=== PATIENT | female | born 1960 | race Caucasian/White ===

== ENCOUNTER 2018-08-28 09:42 | Emergency (ER) | payer MEDICARE ==
[~2018-08-28] VITALS: Ht 160 cm; Wt 59.0 kg
[~2018-08-28 09:42] MED LIST: ESTR1TAB24 PO; HORMONE REPLACEMENT; HYDR-3820 PO; LEVO88TA26 PO; PANT20TA2 PO
--- OUTSIDE RECORDS SUMMARY | 2018-08-28 09:47 | XMS REPORT | Clinical Summary ---
Author Author [facility] Organization [facility] Address Unknown Phone Unavailable Care Team Providers Care Eye Surgeon Name Role Phone Lilo Huggins MD Unavailable Unverified, Unverified Md PCP Unavailable Source Comments Some departments are not documenting in the electronic medical record. If you do not see the information that you expected, contact Release of Information in the Health Information Management department at [phone] for further assistance in locating additional records.[facility] Allergies No Known Allergies Medications End Date Status Medication Sig Dispensed Refills Start Date Active levothyroxine (SYNTHROID) Take 88 mcg 0 88 mcg tablet by mouth daily. Active CETIRIZINE HCL (ZYRTEC Take 1 Tab by 0 PO) mouth as Needed. Active RANITIDINE HCL PO Take by 0 mouth twice daily. Active DOCOSAHEXANOIC ACID/EPA Take by 0 (FISH OIL PO) mouth daily. Active estradiol (ESTRACE) 0.01 Apply to 1 Container 11 01/30/201 % (0.1 mg/g) vaginal vaginal area 3 cream daily for seven days, then twice weekly after Active Problems Problem Noted Date Mixed stress and urge urinary incontinence 01/30/2013 Overview: S/p lap INDRA/BSO and sling 2008 (Dr. Elizalde) and bone anchored xenograft sling 2010 (Dr. Shannon) with severe FRANKY. Cysto (03/06/13): unremarkable UDS (03/06/13): nl capacity and emptying; +LPP; dysfunctional voiding L ast Assessment & Plan: - timed and double voiding - estrace cream - PFRT (if incontinence, pain does not improve once dysfunctional voiding addressed; will consider removal of sling. UDS are not c/w obstruction, yet symptoms are suspicious) - rtc in 3 months Social History Date Tobacco Use Types Packs/Day Years Used Quit: 09/13/2002 Former Smoker Cigarettes 1 20 Smokeless Tobacco: Never Used Alcohol Use Drinks/Week oz/Week Comments No Sex Assigned at Date Recorded Not on file Industry Job Start Date Occupation Not on file Not on file Not on file Travel End Travel History Travel Start No recent travel history available. Last Filed Vital Signs Time Taken Vital Sign Reading 03/06/2013 1:20 PM CDT Blood Pressure 114/75 03/06/2013 1:20 PM CDT Pulse 83 - Temperature - - Respiratory Rate - - Oxygen Saturation - - Inhaled Oxygen - Concentration 03/06/2013 1:20 PM CDT Weight 70.8 kg (156 lb) 03/06/2013 1:20 PM CDT Height 162.6 cm (5' 4") 03/06/2013 1:20 PM CDT Body Mass Index 26.78 Plan of Treatment Health Maintenance Due Date Last Done Comments HEPATITIS C SCREENING 1960 PHYSICAL (COMPREHENSIVE) 1967 EXAM HIV SCREENING 1975 DTAP/TDAP VACCINES (1 - 1978 Tdap) CERVICAL CANCER SCREENING 1990 BREAST CANCER SCREENING 2000 COLORECTAL CANCER 2010 SCREENING SHINGLES RECOMBINANT 2010 VACCINE (1 of 2) INFLUENZA VACCINE 04/13/2018 Results Not on filefrom Last 3 Months
--- OUTSIDE RECORDS SUMMARY | 2018-08-28 09:48 | XMS REPORT ---
Author Author MARIA INES LEAL Organization [facility] Address [address] [place] [address] Care Team Providers Care Bakery Helper Name Role Phone MARIA INES LEAL Unavailable PROBLEMS Type Condition ICD9-CM Code EYD34-ZS Code Onset Dates Condition Status SNOMED Code Problem Major depressive disorder, single episode, moderate F32.1 Active 527058679 Problem Arthritis M19.90 Active 7949899 Problem Acquired hypothyroidism E03.9 Active 027177149 Problem Other chronic pain G89.29 Active 01246481 Problem Lumbago with sciatica, right side M54.41 Active 775974814133631 Problem Depression F32.9 Active 94653131 Problem Other chronic pain G89.29 Active 72950231 Problem Lumbago with sciatica, left side M54.42 Active 732071484 Problem Primary insomnia F51.01 Active 9809180 ALLERGIES No Information ENCOUNTERS Encounter Location Date Diagnosis [facility] [address] [address] Apr, [facility] [address] [address] Mar, Insomnia, unspecified type G47.00 [facility] [address] [address] Feb, Insomnia, unspecified type G47.00 [place] [address] [address] January, Acute non-recurrent maxillary sinusitis J01.00 and Depression F32.9 [facility] [address] [address] January, Seasonal allergic rhinitis, unspecified trigger J30.2 [facility] [address] [address] January, Insomnia, unspecified type G47.00 [place] [address] [place] [id number] [place] [address]1645- 9472 Dec, Insomnia, unspecified type G47.00 [place] [id number] [place] [id number] [place] [address]03- 1103 Dec, Other chronic pain G89.29 [place] [address] [address]- [address] Nov, Other chronic pain G89.29 ; Arthritis M19.90 ; Acquired hypothyroidism E03.9 ; Lumbago with sciatica, left side M54.42 ; Lumbago with sciatica, right side M54.41 and Major depressive disorder, single episode, moderate F32.1 [place] [address] [place] [id number] [place] [address] 60770- 3014 Nov, Insomnia, unspecified type G47.00 [facility] [address] [id number] [place] [address] Nov, Acute cystitis with hematuria N30.01 [place] [address] [place] [id number] [place] [address] 04968- 9548 Oct, Insomnia, unspecified type G47.00 [place] [address] [place] [id number] [place] [address] 59837- 7467 Sep, Insomnia, unspecified type G47.00 [place] [address] [place] [id number] [place] [address] 83704- 4684 Aug, Insomnia, unspecified type G47.00 [place] [address] [place] [id number] [place] [address] 36197- 9872 Jul, Insomnia, unspecified type G47.00 [place] [address] [place] [id number] [place] [address] 95904- 5840 Jul, [facility] [address] [id number] [place] [address]68 [address]2063 Jul, Dysuria R30.0 and Acute cystitis with hematuria N30.01 [place] [address] [address]- [address] Jun, Insomnia, unspecified type G47.00 [place] [address] [place] [id number] [place] [address] 15473- 0263 Jun, Encounter for immunization Z23 [place] [address] [address]- [address] May, [place] [address] [address] May, Insomnia, unspecified type G47.00 ; Lumbago with sciatica, left side M54.42 ; Lumbago with sciatica, right side M54.41 and Other chronic pain G89.29 [facility] [address] [address] May, Acute non-recurrent maxillary sinusitis J01.00 [place] [address] [address]- [address] Apr, Other chronic pain G89.29 [place] [address] [address]- [address]681 Apr, Primary insomnia F51.01 and Pain in right leg M79.604 [place] [address] [place] [id number] [place] [address] 02870- 2570 Mar, Other chronic pain G89.29 [place] [address] [place] [id number] [place] [address] 32428- 6301 Feb, Other chronic pain G89.29 [facility] [address] [address] Feb, Depression F32.9 and Insomnia, unspecified type G47.00 [place] [address] [address]- [address] Feb, Other chronic pain G89.29 [facility] [address] [address] January, Arthritis M19.90 [facility] [address] [address] January, [facility] [address] [address] January, Other chronic pain G89.29 [facility] [address] [facility] [id number] [address] Dec, Other chronic pain G89.29 [facility] [id number] [place] [address] 2546 Nov, Depression F32.9 [facility] [address] [address] 2546 Nov, Other chronic pain G89.29 [facility] [address] [address] Oct, Arthritis M19.90 [facility] [id number] [place] [address] 33412- 0456 Aug, [facility] [address] [address] Aug, [facility] [address] [address] Jul, Acquired hypothyroidism E03.9 [facility] [address] [address] 254 Jul, [facility] [address] [address] 2548 Jul, [facility] [address] [address] Jul, [facility] [address] [address] Jun, [facility] [id number] [place] [address] 54518- 2872 Jun, Encounter for immunization Z23 [facility] [address] [place] [id number] [place] [address]141- 49[address] 30 May, 2016 [facility] [address] [place] [id number] [place] [address] 61375- 1269 May, [facility] [address] [place] [id number] [place] [address]81 [address] May, Acute non-recurrent maxillary sinusitis J01.00 and Bilateral acute serous otitis media, recurrence not specified H65.03 [place] [address] [place] [id number] [place] [address] 49898- 4129 May, Rheumatoid arthritis 714.0 and Osteoarthritis, unspecified osteoarthritis type, unspecified site M19.90 [place] [address] [place] [id number] [place] [address] 83041- 9797 May, [facility] [address] [place] [id number] [place] [address] 94433- 9664 Apr, [place] [address] [place] [id number] [place] [address] 86217- 8160 Apr, OAB (overactive bladder) N32.81 ; Encounter for well woman exam with routine gynecological exam Z01.419 and Encounter for screening mammogram for breast cancer Z12.31 [place] [address] [place] [id number] [place] [address] 56614- 4430 Apr, [place] [address] [place] [id number] [place] [address] 41791- 7764 Mar, [place] [address] [place] [id number] [place] [address] 43875- 0614 Feb, Acquired hypothyroidism E03.9 [place] [address] [place] [id number] [place] [address] 54868- 8904 Feb, [place] [address] [place] [id number] [place] [address] 96496- 3764 January, [facility] [id number] [place] [address] 65468- 0635 January, [facility] [address] [place] [id number] [place] [address] 32641- 5155 Dec, [facility] [address] [place] [id number] [place] [address] 74518- 1705 Nov, [facility] [address] [place] [id number] [place] [address] 44543- 8784 Oct, [facility] [address] [place] [id number] [place] [address] 49495- 0473 Sep, Acquired hypothyroidism E03.9 [facility] [address] [place] [id number] [place] [address] 00380- 0498 Aug, Acquired hypothyroidism E03.9 ; Hiatal hernia K44.9 and Lumbar neuritis M54.16 [facility] [address] [place] [id number] [place] [address] 88577- 3693 Jul, [facility] [address] [place] [id number] [place] [address] 21462- 4776 Jul, Major depressive disorder, single episode, moderate F32.1 [place] [address] [place] [id number] [place] [address] 29138- 9251 Jul, Acquired hypothyroidism E03.9 [facility] [address] [place] [id number] [place] [address] 04333- 0194 Jun, Major depressive disorder, single episode, moderate F32.1 [facility] [address] [place] [id number] [place] [address] 07578- 7958 Jun, [facility] [address] [place] [id number] [place] [address] 95930- 0224 Jun, Depression F32.9 ; Irritable bowel syndrome with diarrhea K58.0 and Other chronic pain G89.29 [facility] [address] [place] [id number] [place] [address] 02080- 5785 Jun, Family history of pinworm infection Z83.1 [facility] [address] [place] [id number] [place] [address] 27158- 3784 Jun, Acquired hypothyroidism E03.9 [facility] [address] [place] [id number] [place] [address] 24370- 0120 Jun, Unspecified hypothyroidism 244.9 [facility] [address] 48[address]- 0836 Jun, [facility] [address] [place] [id number] [place] [address] 93349- 9551 May, Unspecified hypothyroidism 244.9 [facility] [address] 047[address]- 6017 May, [facility] [address] [place] [id number] [place] [address] 23804- 2202 Apr, [facility] [address] 04[address]- 2628 Mar, [facility] [address] [place] [id number] [place] [address] 71994- 1886 Feb, Paronychia 681.9 and Hypothyroidism 244.9 [facility] [address] [place] [id number] [place] [address] 98920- 3656 January, [facility] [address] [place] [id number] [place] [address] 42743- 8944 14 Dec, 2014 [facility] [address] [place] [id number] [place] [address] 33562- 5597 Dec, [facility] [address] [place] [id number] [place] [address] 19566- 7780 Nov, [facility] [address] [place] [id number] [place] [address] 38717- 8034 Nov, [facility] [address] [place] [id number] [place] [address] 75799- 1539 Nov, [facility] [place] [facility] [address] [id number] [place] [address]- 2997 Nov, [facility] [place] [facility] [address] [id number] [place] [address]- 3394 Oct, [facility] [place] [facility] [address] [id number] [place] [address]- 3647 Oct, [facility] [place] [facility] [address] [id number] [place] [address]- 2078 Oct, [facility] [place] [facility] [address] [id number] [place] [address]- 4431 Oct, [facility] [place] [facility] [address] [id number] [place] [address]- 4825 Sep, [facility] [place] [facility] [address] [id number] [place] [address]- 1245 Sep, [facility] [place] [facility] [address] [id number] [place] [address]- 0169 Sep, [facility] [place] [facility] [address] [id number] [place] [address]- 7695 Sep, [facility] [place] [facility] [address] [facility] [id number] [place] [address]- 0891 Aug, [facility] [place] [facility] [address] [id number] [place] [address]- 3028 Aug, [facility] [place] [facility] [address] [id number], [place] [address]- 9875 Jul, [facility] [place] [facility] [address] [id number] [place] [address]- 0273 Jul, [facility] [place] [facility] [address] [id number] [place] [address]- 1129 Jun, [facility] [place] [facility] [address] [id number] [place] [address]- 1744 Jun, [facility] [place] [facility] [address] [id number], [place] [address]- 1389 25 May, 2013 [facility] [address] [id number], [place] [address] 2546 25 May, 2013 [facility] [address] [id number], [place] [address] 2546 24 May, 2014 [facility] [address] [id number], [place] [address]- 2266 24 May, 2014 [facility] [address] [id number], [place] [address]- 8535 16 May, 2014 [facility] [address] [id number] [place] [address]- 3411 16 May, 2014 [facility] [address] [id number], [place] [address]- 1767 15 May, 2014 [facility] [address] [facility] [id number], [place] [address]- 2680 15 May, 2014 [facility] [address] [facility] [id number], [place] [address]- 5967 May, [facility] [address] [id number], [place] [address]- 7485 May, [facility] [address] [facility] [id number], [place] [address]- 6615 Apr, [facility] [address] [id number], [place] [address]- 8214 Apr, [facility] [address] [id number], [place] [address]- 4143 Apr, [facility] [address] [id number], [place] [address]- 5916 Apr, [facility] [address] [facility] [id number], [place] [address]- 7661 Apr, [facility] [address] [facility] [id number], [place] [address]- 5672 Apr, IMMUNIZATIONS No Known Immunizations SOCIAL HISTORY Never Assessed REASON FOR VISIT med questions PLAN OF CARE VITAL SIGNS MEDICATIONS Medication Instructions Dosage Frequency Start Date End Date Duration Status Cymbalta 30 MG Orally Once a day x 7 days then increase to 60. 1 capsule Dec, Active Cymbalta 60 mg Orally Once a day 1 capsule 24h Dec, 30 day(s) Active RESULTS No Results PROCEDURES No Known procedures INSTRUCTIONS MEDICATIONS ADMINISTERED No Known Medications MEDICAL (GENERAL) HISTORY Type Description Date Medical History rheumatoid arthritis Medical History Hypothyroidism Medical History osteoarthritis Surgical History EGD Surgical History Colonoscopy (fiberoptic) 2008 Surgical History Thyroidectomy-Dr. Lin d/t benign mass 2010 Surgical History Bladder Sling- Dr. Elizalde, has had repair and continues to have problems 2008 Surgical History Hysterectomy-total for endometriosis and prolapse 2008 Surgical History Cholecystectomy 02/2016 Hospitalization History for surgeries only
--- OUTSIDE RECORDS SUMMARY | 2018-08-28 09:48 | XMS REPORT ---
Author Author MARIA INES LEAL Organization [facility] Address [address] [place] [address] Care Team Providers Care Biological Technician Name Role Phone MARIA INES LEAL Unavailable PROBLEMS Type Condition ICD9-CM Code [id number] Code Onset Dates Condition Status SNOMED Code Problem Major depressive disorder, single episode, moderate F32.1 Active 158523822 Problem Arthritis M19.90 Active 0926755 Problem Acquired hypothyroidism E03.9 Active 434506315 Problem Other chronic pain G89.29 Active 95159100 Problem Lumbago with sciatica, right side M54.41 Active 962404196759260 Problem Depression F32.9 Active 94722901 Problem Other chronic pain G89.29 Active 34052942 Problem Lumbago with sciatica, left side M54.42 Active 533170617 Problem Primary insomnia F51.01 Active 5405471 ALLERGIES No Known Allergies ENCOUNTERS Encounter Location Date Diagnosis [facility] [address] [address] Apr, [facility] [address] [address] Mar, Insomnia, unspecified type G47.00 [facility] [address] [address] Feb, Insomnia, unspecified type G47.00 [facility] [address] [address] January, Acute non-recurrent maxillary sinusitis J01.00 and Depression F32.9 [facility] [id number] [place] [address]676 [address]21 January, Seasonal allergic rhinitis, unspecified trigger J30.2 [facility] [address] [address] January, Insomnia, unspecified type G47.00 [facility] [id number] [place] [address] 23570- 3583 Dec, Insomnia, unspecified type G47.00 [facility] [place] [id number] [place] [address] 65671- 5057 Dec, Other chronic pain G89.29 [place] [address] [address]- [address] Nov, Other chronic pain G89.29 ; Arthritis M19.90 ; Acquired hypothyroidism E03.9 ; Lumbago with sciatica, left side M54.42 ; Lumbago with sciatica, right side M54.41 and Major depressive disorder, single episode, moderate F32.1 [facility] [id number] [place] [address] 21052- 8389 Nov, Insomnia, unspecified type G47.00 [facility] [id number] [place] [address]70 -9406 Nov, Acute cystitis with hematuria N30.01 [place] [place] [id number] [place] [address] 42989- 2219 Oct, Insomnia, unspecified type G47.00 [facility] [id number] [place] [address] 86728- 8532 Sep, Insomnia, unspecified type G47.00 [facility] [id number] [place] [address] 00970- 6156 Aug, Insomnia, unspecified type G47.00 [facility] [id number] [place] [address] 23992- 5923 Jul, Insomnia, unspecified type G47.00 [facility] [place] [id number] [place] [address] 40823- 8414 Jul, [facility] [id number] [place] [address] 92556 -3171 Jul, Dysuria R30.0 and Acute cystitis with hematuria N30.01 [place] [id number] [place] [address] 98102- 5932 Jun, Insomnia, unspecified type G47.00 [place] [place] [id number] [place] [address] 14365- 8167 Jun, Encounter for immunization Z23 [place] [address] [address] May, [place] [address] [address] May, Insomnia, unspecified type G47.00 ; Lumbago with sciatica, left side M54.42 ; Lumbago with sciatica, right side M54.41 and Other chronic pain G89.29 [facility] [address] [address] May, Acute non-recurrent maxillary sinusitis J01.00 [facility] [id number] [place] [address] 07930- 7834 Apr, Other chronic pain G89.29 [place] [address] 69398- [address] Apr, Primary insomnia F51.01 and Pain in right leg M79.604 [facility] [id number] [place] [address] 63304- 9455 Mar, Other chronic pain G89.29 [facility] [place] [id number] [place] [address] 18083- 0396 Feb, Other chronic pain G89.29 [place] [address] 46257- [address] Feb, Depression F32.9 and Insomnia, unspecified type G47.00 [place] [address] 0[address]52- [address] Feb, Other chronic pain G89.29 [facility] [address] [facility] [id number] [address] January, Arthritis M19.90 [facility] [address] [facility] [id number], [place] [address] January, [facility] [id number] [address] January, Other chronic pain G89.29 [facility] [address] [facility] [id number], [place] [address] 2546 Dec, Other chronic pain G89.29 [facility] [id number] [place] [address] 2546 Nov, Depression F32.9 [facility] [address] [address] 2546 Nov, Other chronic pain G89.29 [facility] [address] [address] Oct, Arthritis M19.90 [facility] [id number] [place] [address] 2546 Aug, [facility] [address] [address] Aug, [facility] [address] [address] 2549 Jul, Acquired hypothyroidism E03.9 [facility] [address] [address]40 Jul, [facility] [address] [address] 2546 Jul, [facility] [address] [address] Jul, [facility] [id number] [address] Jun, [facility] [id number] [place] [address] 52762- [address] Jun, Encounter for immunization Z23 [facility] [id number] [place] [address] 689[address]- 4274 30 May, 2016 [facility] [id number] [place] [address] 42874- 4730 26 May, 2016 [facility] [id number] [place] [address] 10966 -6320 May, Acute non-recurrent maxillary sinusitis J01.00 and Bilateral acute serous otitis media, recurrence not specified H65.03 [place] [address] [address]- [address] 16 May, 2016 Rheumatoid arthritis 714.0 and Osteoarthritis, unspecified osteoarthritis type, unspecified site M19.90 [place] [address] [address]87- 47[address] May, [facility] [id number] [place] [address] 88114- 0267 Apr, [place] [id number] [place] [address] 61411- 7946 Apr, OAB (overactive bladder) N32.81 ; Encounter for well woman exam with routine gynecological exam Z01.419 and Encounter for screening mammogram for breast cancer Z12.31 [place] [id number] [place] [address] 24814- 4503 Apr, [facility] [place] [id number] [place] [address] 18776- 4782 Mar, [place] [address] [address]- [address] Feb, Acquired hypothyroidism E03.9 [facility] [id number] [place] [address] 72904- 9160 10 Feb, 2016 [place] [place] [id number] [place] [address] 78446- 3759 January, [facility] [id number] [place] [address] 52288- 2622 January, [facility] [id number] [place] [address] 51168- 5943 Dec, [facility] [id number] [place] [address] 63811- 4482 Nov, [facility] [id number] [place] [address] 13898- 1689 Oct, [facility] [id number] [place] [address] 40841- 1334 Sep, Acquired hypothyroidism E03.9 [facility] [id number] [place] [address] 45411- 7186 Aug, Acquired hypothyroidism E03.9 ; Hiatal hernia K44.9 and Lumbar neuritis M54.16 [place] [id number] [place] [address] 00366- 0264 Jul, [facility] [id number] [place] [address] 95149- 3185 Jul, Major depressive disorder, single episode, moderate F32.1 [place] [id number] [place] [address] 63476- 7327 Jul, Acquired hypothyroidism E03.9 [facility] [id number] [place] [address] 41212- 9386 Jun, Major depressive disorder, single episode, moderate F32.1 [facility] [id number] [place] [address] 46594- 1349 Jun, [facility] [id number] [place] [address] 05346- 8850 Jun, Depression F32.9 ; Irritable bowel syndrome with diarrhea K58.0 and Other chronic pain G89.29 [facility] [id number] [place] [address] 01985- 4629 Jun, Family history of pinworm infection Z83.1 [facility] [id number] [place] [address] 65436- 7052 Jun, Acquired hypothyroidism E03.9 [facility] [id number] [place] [address] 51156- 5618 Jun, Unspecified hypothyroidism 244.9 [facility] [address] 66850- 8100 Jun, [facility] [id number] [place] [address] 34687- 4069 May, Unspecified hypothyroidism 244.9 [facility] [id number] [place] [address] 46642- 0750 May, [facility] [id number] [place] [address] 90132- 1201 Apr, [facility] [id number] [place] [address] 68490- 1016 Mar, [facility] [id number] [place] [address] 80704- 5316 Feb, Paronychia 681.9 and Hypothyroidism 244.9 [facility] [id number] [place] [address] 22896- 0415 January, [facility] [id number] [place] [address] 20184- 3688 14 Dec, 2014 [facility] [id number] [place] [address] 53496- 4574 Dec, [facility] [id number] [place] [address] 09387- 0639 Nov, [facility] [id number] [place] [address] [id number]- 4976 Nov, [facility] [id number] [place] [address] 43066- 1371 Nov, [facility] [place] [facility] [address] [id number] [place] [address]- 7512 Nov, [facility] [place] [facility] [address] [id number] [place] [address]- 7206 Oct, [facility] [place] [facility] [address] [id number] [place] [address]- 5074 Oct, [facility] [place] [facility] [address] [id number] [place] [address]- 7809 Oct, [facility] [place] [facility] [address] [id number] [place] [address]- 9924 Oct, [facility] [place] [facility] [address] [id number] [place] [address]- 6892 Sep, [facility] [place] [facility] [address] [id number] [place] [address]- 3413 Sep, [facility] [place] [facility] [address] [id number] [place] [address]- 6879 Sep, [facility] [place] [facility] [address] [id number] [place] [address]- 6144 Sep, [facility] [place] [facility] [address] [facility] [id number] [place] [address]- 6040 Aug, [facility] [place] [facility] [address] [id number] [place] [address]- 7763 Aug, [facility] [place] [facility] [address] [id number] [address]- 6525 Jul, [facility] [place] [facility] [address] [id number] [place] [address]- 0234 Jul, [facility] [place] [facility] [address] [id number] [place] [address]- 4626 Jun, [facility] [place] [facility] [address] [id number], [place] [address]- 7029 Jun, [facility] [place] [facility] [address] [id number] [address]- 0608 25 May, 2013 [facility] [address] [id number] [place] [address] 2546 25 May, 2013 [facility] [address] [id number] [place] [address]- 7476 24 May, 2014 [facility] [address] [facility] [id number] [place] [address]- 3866 24 May, 2014 [facility] [address] [id number] [place] [address]- 6706 16 May, 2013 [facility] [address] [id number] [place] [address]- 4216 16 May, 2014 [facility] [address] [id number] [place] [address]- 8157 15 May, 2014 [facility] [address] [facility] [id number], [place] [address]- 0806 15 May, 2014 [facility] [address] [facility] [id number], [place] [address]- 2691 May, [facility] [address] [facility] [id number], [place] [address]- 8767 May, [facility] [address] [facility] [id number], [place] [address]- 9260 Apr, [facility] [address] [facility] [id number], [place] [address]- 8210 Apr, [facility] [address] [facility] [id number], [place] [address]- 7744 Apr, [facility] [address] [id number], [place] [address]- 8136 Apr, [facility] [address] [facility] [id number], [place] [address]- 7979 Apr, [facility] [address] [facility] [id number], [place] [address]- 9118 Apr, IMMUNIZATIONS No Known Immunizations SOCIAL HISTORY Never Assessed REASON FOR VISIT Pain management (chronic)- states she is miserable, falling frequently--Last Cedeño RN PLAN OF CARE Activity Details Follow Up 4 Weeks Reason:depression VITAL SIGNS Height 63 in 2017-12-08 Weight 134 lbs 2017-12-08 Temperature 98.0 degrees Fahrenheit 2017-12-08 Heart Rate 76 bpm 2017-12-08 Respiratory Rate 16 2017-12-08 BMI 23.73 kg/m2 2017-12-08 Blood pressure systolic 112 mmHg 2017-12-08 Blood pressure diastolic 78 mmHg 2017-12-08 MEDICATIONS Medication Instructions Dosage Frequency Start Date End Date Duration Status Hydrocodone-Acetaminophen 10-325 MG Orally 4 times a day 1 tablet as needed 6h Nov, 28 days Active Ditropan XL 5 MG TAKE ONE TABLET BY MOUTH ONCE DAILY 30 Active Flonase 50 MCG/ACT Nasally Once a day 1 spray in each nostril 24h May, 30 day(s) Active Levothyroxine Sodium 100 MCG Oral Once a day 1 capsule 24h Active Amitriptyline HCl 100 MG Orally Once a day 1 tablet 24h Apr, Active RESULTS No Results PROCEDURES Procedure Date Ordered Result Body Site DRUG TEST PRSMV CHEM ANLYZR December 08, 2017 [facility] December 08, 2017 INSTRUCTIONS MEDICATIONS ADMINISTERED No Known Medications MEDICAL [...]
--- OUTSIDE RECORDS SUMMARY | 2018-08-28 09:48 | XMS REPORT ---
Author Author MARIA INES LEAL Organization [facility] Address [address] [place] [address] Care Team Providers Care Transmitter Chief Name Role Phone MARIA INES LEAL Unavailable PROBLEMS Type Condition ICD9-CM Code XFQ64-AX Code Onset Dates Condition Status SNOMED Code Problem Major depressive disorder, single episode, moderate F32.1 Active 085905186 Problem Arthritis M19.90 Active 6593654 Problem Acquired hypothyroidism E03.9 Active 033325546 Problem Other chronic pain G89.29 Active 01077129 Problem Lumbago with sciatica, right side M54.41 Active 427572734993303 Problem Depression F32.9 Active 64592849 Problem Other chronic pain G89.29 Active 84756806 Problem Lumbago with sciatica, left side M54.42 Active 684333937 Problem Primary insomnia F51.01 Active 3588875 ALLERGIES No Information ENCOUNTERS Encounter Location Date Diagnosis [facility] [address] [address] Apr, [facility] [address] [address]- [address] Mar, Insomnia, unspecified type G47.00 [facility] [address] 30[address]- [address] Feb, Insomnia, unspecified type G47.00 [facility] [address] [address]- [address] January, Acute non-recurrent maxillary sinusitis J01.00 and Depression F32.9 [facility] [address] [address] January, Seasonal allergic rhinitis, unspecified trigger J30.2 [facility] [address] 7[address]- 8554 January, Insomnia, unspecified type G47.00 [place] [address] [id number] [place] [address] 94048- 1091 Dec, Insomnia, unspecified type G47.00 [place] [id number] [place] [address] 10348- 3845 Dec, Other chronic pain G89.29 [place] [address] 8[address]99- 6105 Nov, Other chronic pain G89.29 ; Arthritis M19.90 ; Acquired hypothyroidism E03.9 ; Lumbago with sciatica, left side M54.42 ; Lumbago with sciatica, right side M54.41 and Major depressive disorder, single episode, moderate F32.1 [place] [id number] [place] [address] 32241- 8850 Nov, Insomnia, unspecified type G47.00 [facility] [id number] [place] [address] 82532 -4573 Nov, Acute cystitis with hematuria N30.01 [place] [id number] [place] [address] 77988- 9647 Oct, Insomnia, unspecified type G47.00 [place] [id number] [place] [address] 38247- 1884 Sep, Insomnia, unspecified type G47.00 [place] [id number] [place] [address] 54013- 4297 Aug, Insomnia, unspecified type G47.00 [place] [id number] [place] [address] 99481- 2612 Jul, Insomnia, unspecified type G47.00 [place] [id number] [place] [address] 00887- 5828 Jul, [facility] [id number] [place] [address] 25293 -8740 Jul, Dysuria R30.0 and Acute cystitis with hematuria N30.01 [place] [address] 49135- 7244 Jun, Insomnia, unspecified type G47.00 [place] [id number] [place] [address] 60808- 5588 Jun, Encounter for immunization Z23 [place] [address] 57559- 8598 May, [place] [address] 96718- 7161 May, Insomnia, unspecified type G47.00 ; Lumbago with sciatica, left side M54.42 ; Lumbago with sciatica, right side M54.41 and Other chronic pain G89.29 [facility] [address] [address] May, Acute non-recurrent maxillary sinusitis J01.00 [place] [address] 42556- 8974 Apr, Other chronic pain G89.29 [place] [address] 75306- 6161 Apr, Primary insomnia F51.01 and Pain in right leg M79.604 [place] [id number] [place] [address] 06947- 3679 Mar, Other chronic pain G89.29 [place] [id number] [place] [address] 76001- 0310 Feb, Other chronic pain G89.29 [facility] [address] 91131- 1486 Feb, Depression F32.9 and Insomnia, unspecified type G47.00 [place] [address] 67776- 9221 Feb, Other chronic pain G89.29 [facility] [address] [address] January, Arthritis M19.90 [facility] [address] [address] 2546 January, [facility] [address] [address] 2546 January, Other chronic pain G89.29 [facility] [address] [facility] [id number] [address] 2546 Dec, Other chronic pain G89.29 [facility] [id number] [place] [address] 68317 2546 Nov, Depression F32.9 [facility] [address] [address] 2546 Nov, Other chronic pain G89.29 [facility] [address] [address] 2075 Oct, Arthritis M19.90 [facility] [address] [place] [address] 11256- 3056 Aug, [facility] [address] [address]- 25[address] Aug, [facility] [address] [address] 3[address] Jul, Acquired hypothyroidism E03.9 [facility] [address] [address] 2545 Jul, [facility] [address] [address] 2543 Jul, [facility] [address] [address]- 8336 Jul, [facility] [address] [address]- 9668 Jun, [facility] [address] [place] [address] 57764- 5677 Jun, Encounter for immunization Z23 [facility] [id number] [place] [address] 24624- 4474 30 May, 2016 [facility] [id number] [place] [address] 95898- 9033 May, [facility] [id number] [place] [address] 63226 -7577 May, Acute non-recurrent maxillary sinusitis J01.00 and Bilateral acute serous otitis media, recurrence not specified H65.03 [place] [id number] [place] [address] 32269- 2664 May, Rheumatoid arthritis 714.0 and Osteoarthritis, unspecified osteoarthritis type, unspecified site M19.90 [place] [id number] [place] [address] 92651- 3251 May, [facility] [id number] [place] [address] 67440- 6870 Apr, [place] [id number] [place] [address] 06686- 3536 Apr, OAB (overactive bladder) N32.81 ; Encounter for well woman exam with routine gynecological exam Z01.419 and Encounter for screening mammogram for breast cancer Z12.31 [place] [id number] [place] [address] 11765- 3133 Apr, [place] [id number] [place] [address] 43104- 0400 Mar, [place] [id number] [place] [address] 47865- 5025 Feb, Acquired hypothyroidism E03.9 [place] [id number] [place] [address] 54184- 9672 Feb, [place] [id number] [place] [address] 28505- 9398 January, [facility] [address] [place] [address] 73305- 4128 January, [facility] [id number] [place] [address] 23651- 8805 Dec, [facility] [id number] [place] [address] 71230- 6035 Nov, [facility] [id number] [place] [address] 26851- 3400 Oct, [facility] [id number] [place] [address] 30705- 3755 Sep, Acquired hypothyroidism E03.9 [facility] [id number] [place] [address] 76838- 3898 Aug, Acquired hypothyroidism E03.9 ; Hiatal hernia K44.9 and Lumbar neuritis M54.16 [facility] [id number] [place] [address] 24054- 0482 Jul, [facility] [id number] [place] [address] 49450- 4597 Jul, Major depressive disorder, single episode, moderate F32.1 [place] [id number] [place] [address] 08503- 3680 Jul, Acquired hypothyroidism E03.9 [facility] [id number] [place] [address] 81073- 4960 Jun, Major depressive disorder, single episode, moderate F32.1 [facility] [id number] [place] [address] 98082- 2748 Jun, [facility] [id number] [place] [address] 63209- 3450 Jun, Depression F32.9 ; Irritable bowel syndrome with diarrhea K58.0 and Other chronic pain G89.29 [facility] [id number] [place] [address] 49157- 0465 Jun, Family history of pinworm infection Z83.1 [facility] [id number] [place] [address] 35785- 0524 Jun, Acquired hypothyroidism E03.9 [facility] [id number] [place] [address] 93268- 8507 Jun, Unspecified hypothyroidism 244.9 [facility] [address] 24063- 2373 Jun, [facility] [id number] [place] [address] 94922- 5787 May, Unspecified hypothyroidism 244.9 [facility] [address] 24433- 2832 May, [facility] [id number] [place] [address] 30993- 4768 Apr, [facility] [address] 69244- 5073 Mar, [facility] [id number] [place] [address] 64005- 3796 Feb, Paronychia 681.9 and Hypothyroidism 244.9 [facility] [id number] [place] [address] 13192- 2851 January, [facility] [id number] [place] [address] 54399- 9787 14 Dec, 2014 [facility] [id number] [place] [address] 65476- 7452 Dec, [facility] [id number] [place] [address] 49657- 6890 Nov, [facility] [id number] [place] [address] 56813- 3756 Nov, [facility] [id number] [place] [address] 35317- 0556 Nov, [facility] [place] [facility] [address] [id number] [place] [address]- 5220 Nov, [facility] [place] [facility] [address] [id number] [place] [address]- 2813 Oct, [facility] [place] [facility] [address] [id number] [place] [address]- 5395 Oct, [facility] [place] [facility] [address] [id number] [place] [address]- 9808 Oct, [facility] [place] [facility] [address] [id number] [place] [address]- 0255 Oct, [facility] [place] [facility] [address] [id number] [place] [address]- 1175 Sep, [facility] [place] [facility] [address] [id number] [place] [address]- 1646 Sep, [facility] [place] [facility] [address] [id number] [place] [address]- 7423 Sep, [facility] [place] [facility] [address] [id number] [place] [address]- 5797 Sep, [facility] [place] [facility] [address] [facility] [id number] [place] [address]- 5955 Aug, [facility] [place] [facility] [address] [id number] [place] [address]- 1469 Aug, [facility] [place] [facility] [address] [id number] [place] [address]- 2329 Jul, [facility] [place] [facility] [address] [id number] [place] [address]- 9983 Jul, [facility] [place] [facility] [address] [id number] [place] [address]- 5411 Jun, [facility] [place] [facility] [address] [id number] [place] [address]- 5378 Jun, [facility] [place] [facility] [address] [id number] [place] [address]- 1272 25 May, 2013 [facility] [address] [id number] [place] [address] 2546 25 May, 2013 [facility] [address] [id number] [place] [address] 2546 24 May, 2014 [facility] [address] [id number] [place] [address]- 3446 24 May, 2014 [facility] [address] [id number] [place] [address]- 7374 16 May, 2014 [facility] [address] [id number] [place] [address]- 8288 16 May, 2014 [facility] [address] [id number] [place] [address]- 4823 15 May, 2014 [facility] [address] [facility] [id number] [place] [address]- 5631 15 May, 2014 [facility] [address] [facility] [id number] [place] [address]- 5946 May, [facility] [address] [id number] [place] [address]- 9163 May, [facility] [address] [facility] [id number] [place] [address]- 6651 Apr, [facility] [address] [id number] [place] [address]- 0400 Apr, [facility] [address] [id number] [place] [address]- 9595 Apr, [facility] [address] [id number] [place] [address]- 4689 Apr, [facility] [address] [facility] [id number] [place] [address]- 9648 Apr, [facility] [address] [facility] [id number] [place] [address]- 1548 Apr, IMMUNIZATIONS No Known Immunizations SOCIAL HISTORY Never Assessed REASON FOR VISIT Controlled Med Refill PLAN OF CARE VITAL SIGNS MEDICATIONS Medication Instructions Dosage Frequency Start Date End Date Duration Status Hydrocodone-Acetaminophen 10-325 MG Orally 4 times a day 1 tablet as needed 6h Nov, 28 days Active RESULTS No Results PROCEDURES No Known [...]
--- OUTSIDE RECORDS SUMMARY | 2018-08-28 09:48 | XMS REPORT ---
Author Author [address] [facility] Address [address] [place] [address] Care Team Providers Care Television Camera Operator Name Role Phone SELENE L[address] Unavailable PROBLEMS Type Condition ICD9-CM Code MQP84-IA Code Onset Dates Condition Status SNOMED Code Problem Major depressive disorder, single episode, moderate F32.1 Active 106155574 Problem Arthritis M19.90 Active 3778862 Problem Acquired hypothyroidism E03.9 Active 818556007 Problem Other chronic pain G89.29 Active 69671630 Problem Lumbago with sciatica, right side M54.41 Active 138810943382728 Problem Depression F32.9 Active 85201093 Problem Other chronic pain G89.29 Active 94858944 Problem Lumbago with sciatica, left side M54.42 Active 262431123 Problem Primary insomnia F51.01 Active 8041714 ALLERGIES No Known Allergies ENCOUNTERS Encounter Location Date Diagnosis [facility] [address] [address] Apr, [facility] [id number] [place] [address] 26749- 4608 Mar, Insomnia, unspecified type G47.00 [facility] [address] [address] Feb, Insomnia, unspecified type G47.00 [place] [address] [address] January, Acute non-recurrent maxillary sinusitis J01.00 and Depression F32.9 [facility] IN [facility] [id number] [place] [address]458 January, Seasonal allergic rhinitis, unspecified trigger J30.2 [facility] [id number] [place] [address] January, Insomnia, unspecified type G47.00 [place] [address] [address] Dec, Insomnia, unspecified type G47.00 [place] [address] 8[address]51- 6496 Dec, Other chronic pain G89.29 [place] [address] 04967- 8322 Nov, Other chronic pain G89.29 ; Arthritis M19.90 ; Acquired hypothyroidism E03.9 ; Lumbago with sciatica, left side M54.42 ; Lumbago with sciatica, right side M54.41 and Major depressive disorder, single episode, moderate F32.1 [place] [address] [address]47- 6[address] Nov, Insomnia, unspecified type G47.00 [facility] [address] [address] Nov, Acute cystitis with hematuria N30.01 [place] [address] 80113- 9454 Oct, Insomnia, unspecified type G47.00 [place] [id number] [place] [address] 77932- 2952 Sep, Insomnia, unspecified type G47.00 [place] [id number] [place] [address] 10418- 7229 Aug, Insomnia, unspecified type G47.00 [place] [address] 40356- 4505 Jul, Insomnia, unspecified type G47.00 [place] [id number] [place] [address] 74413- 5022 Jul, [facility] [address] [address] Jul, Dysuria R30.0 and Acute cystitis with hematuria N30.01 [place] [address] 13181- 2710 Jun, Insomnia, unspecified type G47.00 [place] [address] 97146- 5[address] Jun, Encounter for immunization Z23 [place] [address] 53947- 9116 May, [place] [address] 31681- 6851 May, Insomnia, unspecified type G47.00 ; Lumbago with sciatica, left side M54.42 ; Lumbago with sciatica, right side M54.41 and Other chronic pain G89.29 [facility] [address] [address]47 [address] May, Acute non-recurrent maxillary sinusitis J01.00 [place] [address] 26729- 8625 Apr, Other chronic pain G89.29 [place] [address] 44077- 1233 Apr, Primary insomnia F51.01 and Pain in right leg M79.604 [place] [id number] [place] [address] 52174- 2654 Mar, Other chronic pain G89.29 [place] [id number] [place] [address] 51329- 0702 Feb, Other chronic pain G89.29 [place] [address] [address]37- 9493 Feb, Depression F32.9 and Insomnia, unspecified type G47.00 [place] [address] 62527- 9674 Feb, Other chronic pain G89.29 [facility] [address] [facility] [id number] [place] [address] January, Arthritis M19.90 [facility] [address] [facility] [id number] [address] 2546 January, [facility] [address] [facility] [id number] [place] [address] January, Other chronic pain G89.29 [facility] [address] [facility] [id number] [place] [address] 2546 Dec, Other chronic pain G89.29 [facility] [address] [facility] [id number] [place] [address], [place] [address] Nov, Depression F32.9 [facility] [address] [address] Nov, Other chronic pain G89.29 [facility] [address] [address] Oct, Arthritis M19.90 [facility] [address] [place] [address] 20780- 6096 Aug, [facility] [address]65[address] [address] Aug, [facility] [address] [address] 8897 Jul, Acquired hypothyroidism E03.9 [facility] [address] [facility] [id number] [place] [address] 2547 Jul, [facility] [address] [address] Jul, [facility] [address] Jul, [facility] [address] [address] Jun, [facility] [address] [address] 0231 Jun, Encounter for immunization Z23 [facility] [id number] [place] [address] 68299- 3750 30 May, 2016 [facility] [id number] [place] [address] 51458- 3945 May, [facility] [id number] [place] [address] 68335 -1445 May, Acute non-recurrent maxillary sinusitis J01.00 and Bilateral acute serous otitis media, recurrence not specified H65.03 [facility] [id number] [place] [address] 63802- 3568 16 May, 2016 Rheumatoid arthritis 714.0 and Osteoarthritis, unspecified osteoarthritis type, unspecified site M19.90 [place] [id number] [place] [address] 91959- 3141 May, [facility] [id number] [place] [address] 25285- 9368 Apr, [facility] [id number] [place] [address] 96380- 0757 Apr, OAB (overactive bladder) N32.81 ; Encounter for well woman exam with routine gynecological exam Z01.419 and Encounter for screening mammogram for breast cancer Z12.31 [place] [id number] [place] [address] 81239- 1852 05 Apr, 2016 [facility] [id number] [place] [address] 90358- 9131 Mar, [place] [id number] [place] [address] 84251- 9908 Feb, Acquired hypothyroidism E03.9 [facility] [id number] [place] [address] 96423- 3127 Feb, [place] [id number] [place] [address] 82892- 6111 January, [facility] [address] 38353- 9078 January, [facility] [address] 87205- 8976 Dec, [facility] [address] 99068- 9624 Nov, [facility] [address] 77256- 3244 Oct, [facility] [address] 51214- 9490 Sep, Acquired hypothyroidism E03.9 [facility] [address] 66801- 0080 Aug, Acquired hypothyroidism E03.9 ; Hiatal hernia K44.9 and Lumbar neuritis M54.16 [facility] [address] 27836- 8054 Jul, [facility] [address] 20649- 6744 Jul, Major depressive disorder, single episode, moderate F32.1 [place] [address] 81732- 3745 Jul, Acquired hypothyroidism E03.9 [facility] [id number] [place] [address] 64761- 7671 Jun, Major depressive disorder, single episode, moderate F32.1 [facility] [id number] [place] [address] 94519- 6374 Jun, [facility] [address] 55772- 6739 Jun, Depression F32.9 ; Irritable bowel syndrome with diarrhea K58.0 and Other chronic pain G89.29 [facility] [address] 32432- 3988 Jun, Family history of pinworm infection Z83.1 [facility] [id number] [place] [address] 78342- 3899 Jun, Acquired hypothyroidism E03.9 [facility] [id number] [place] [address] 96363- 6952 Jun, Unspecified hypothyroidism 244.9 [facility] [address] 99235- 2039 Jun, [facility] [id number] [place] [address] 89803- 7195 May, Unspecified hypothyroidism 244.9 [facility] [id number] [place] [address] 11777- 2432 May, [facility] [id number] [place] [address] 51054- 9720 Apr, [facility] [id number] [place] [address] 94329- 3452 Mar, [facility] [id number] [place] [address] 22645- 5451 Feb, Paronychia 681.9 and Hypothyroidism 244.9 [facility] [id number] [place] [address] 41205- 8475 January, [facility] [id number] [place] [address] 30384- 6520 14 Dec, 2014 [facility] [id number] [place] [address] 54709- 2850 Dec, [facility] [address] 082884- 1047 Nov, [facility] [id number] [place] [address] 41023- 0234 Nov, [facility] [id number] [place] [address] 87342- 5290 Nov, [facility] [place] [facility] [address] [id number] [place] [address]- 2961 Nov, [facility] [place] [facility] [address] [id number] [place] [address]- 2780 Oct, [facility] [place] [facility] [address] [id number] [place] [address]- 7155 Oct, [facility] [place] [facility] [address] [id number] [place] [address]- 6540 Oct, [facility] [place] [facility] [address] [id number] [place] [address]- 1657 Oct, [facility] [place] [facility] [address] [id number] [place] [address]- 7208 Sep, [facility] [place] [facility] [address] [id number] [place] [address]- 7784 Sep, [facility] [place] [facility] [address] [id number] [place] [address]- 1587 Sep, [facility] [place] [facility] [address] [id number] [place] [address]- 1087 Sep, [facility] [place] [facility] [address] [id number] [place] [address]- 7504 Aug, [facility] [place] [facility] [address] [id number] [place] [address]- 4958 Aug, [facility] [place] [facility] [address] [id number] [place] [address]- 6418 Jul, [facility] [place] [facility] [address] [id number] [place] [address]- 6809 Jul, [facility] [place] [facility] [address] [id number] [place] [address]- 5826 Jun, [facility] [place] [facility] [address] [id number] [place] [address]- 5558 Jun, [facility] [place] [facility] [address] [id number] [place] [address] 2546 25 May, 2013 [facility] [address] [id number] [place] [address] 2546 25 May, 2013 [facility] [place] [facility] [address] [id number] [place] [address] 2546 24 May, 2013 [facility] [place] [facility] [address] [id number] [place] [address] 2546 24 May, 2013 [facility] [place] [facility] [address] [id number] [place] [address] 2546 16 May, 2013 [facility] [place] [facility] [address] [id number] [place] [address] 2546 16 May, 2013 [facility] [address] [id number] [place] [address] 2546 15 May, 2014 [facility] [address] [id number] [place] [address] 2546 15 May, 2014 [facility] [address] [id number] [place] [address] 2543 02 May, 2014 [facility] [place] [facility] [address] [id number] [place] [address] 2546 May, [facility] [address] [id number] [place] [address]- 2541 Apr, [facility] [address] [id number] [place] [address] 2546 Apr, [facility] [address] [id number] [place] [address]- 2545 Apr, [facility] [place] [facility] [address] [id number] [place] [address] 2546 Apr, [facility] [place] [facility] [address] [id number] [place] [address]- 2543 Apr, [facility] [address] [id number] [place] [address]- 2546 Apr, IMMUNIZATIONS No Known Immunizations SOCIAL HISTORY Never Assessed REASON FOR VISIT Burning with urination started a couple days ago JStrassJeaneth PLAN OF CARE Activity Details Follow Up prn Reason: VITAL SIGNS Height 63 in 2017-11-21 Weight 136.2 lbs 2017-11-21 Temperature 98.0 degrees Fahrenheit 2017-11-21 Heart Rate 68 bpm 2017-11-21 Respiratory Rate 18 2017-11-21 BMI 24.12 kg/m2 2017-11-21 Blood pressure systolic 110 mmHg 2017-11-21 Blood pressure diastolic 68 mmHg 2017-11-21 MEDICATIONS Medication Instructions Dosage Frequency Start Date End Date Duration Status Prozac 20 mg Orally Once a day 1 capsule in the morning 24h Active Amitriptyline HCl 50 mg Orally Once a day 1 tablet 24h Apr, Active Myrbetriq 25 MG Orally Once a day 1 tablet 24h 30 Active Flonase 50 MCG/ACT Nasally Once a day 1 spray in each nostril 24h May, 30 day(s) Active Levothyroxine Sodium 100 MCG Oral Once a day 1 capsule 24h Active Bactrim DS 800-160 MG Orally Twice a day 1 tablet 12h Nov,Nov 3 days Active Hydrocodone-Acetaminophen 10-325 MG Orally 4 times a day 1 tablet as needed 6h Oct, 28 days Active Ditropan XL 5 MG TAKE ONE TABLET BY MOUTH ONCE DAILY 30 Active RESULTS No Results PROCEDURES Procedure Date Ordered Result Body Site URINALYSIS, AUTO, W/O SCOPE November 21, 2017 LAB NOT BILLED BY [facility] November 21, 2017 INSTRUCTIONS MEDICATIONS ADMINISTERED No Known Medications [...]
--- OUTSIDE RECORDS SUMMARY | 2018-08-28 09:49 | XMS REPORT ---
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 Name Role Phone MARIA INES LEAL Unavailable PROBLEMS Type Condition ICD9-CM Code [id number] Code Onset Dates Condition Status SNOMED Code Problem Major depressive disorder, single episode, moderate F32.1 Active 268793643 Problem Primary insomnia F51.01 Active 8351728 Problem Insomnia, unspecified type G47.00 Active 886125670 Problem Arthritis M19.90 Active 7766524 Problem Acquired hypothyroidism E03.9 Active 855960864 Problem Depression F32.9 Active 00274921 Problem Other chronic pain G89.29 Active 71653578 ALLERGIES Unknown Allergies SOCIAL HISTORY No smoking Hx information available PLAN OF CARE VITAL SIGNS MEDICATIONS Medication Instructions Dosage Frequency Start Date End Date Duration Status Hydrocodone-Acetaminophen 10-325 MG Orally 4 times a day 1 tablet as needed 6h Aug, Active RESULTS No Results PROCEDURES No Known procedures IMMUNIZATIONS No Known Immunizations
--- OUTSIDE RECORDS SUMMARY | 2018-08-28 09:49 | XMS REPORT ---
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 Name Role Phone MARIA INES LEAL Unavailable PROBLEMS Type Condition ICD9-CM Code [id number] Code Onset Dates Condition Status SNOMED Code Problem Major depressive disorder, single episode, moderate F32.1 Active 896949793 Problem Arthritis M19.90 Active 6001033 Problem Acquired hypothyroidism E03.9 Active 654099167 Problem Other chronic pain G89.29 Active 88500017 Problem Lumbago with sciatica, right side M54.41 Active 729940655366310 Problem Depression F32.9 Active 06196389 Problem Other chronic pain G89.29 Active 94834210 Problem Lumbago with sciatica, left side M54.42 Active 581631432 Problem Primary insomnia F51.01 Active 0704993 ALLERGIES No Information ENCOUNTERS Encounter Location Date Diagnosis [facility] [address] [address]- [address] Feb, Insomnia, unspecified type G47.00 [facility] [id number] [place] [address] 86567- 7746 January, Acute non-recurrent maxillary sinusitis J01.00 and Depression F32.9 [facility] [id number] [place] [address] 06637 -1740 January, Seasonal allergic rhinitis, unspecified trigger J30.2 [facility] [address] [address]- [address]40 January, Insomnia, unspecified type G47.00 [facility] [id number] [place] [address] 42132- 0932 Dec, Insomnia, unspecified type G47.00 [facility] [id number] [place] [address] 23072- 6009 Dec, Other chronic pain G89.29 [place] [address] [address]- 4677 Nov, Other chronic pain G89.29 ; Arthritis M19.90 ; Acquired hypothyroidism E03.9 ; Lumbago with sciatica, left side M54.42 ; Lumbago with sciatica, right side M54.41 and Major depressive disorder, single episode, moderate F32.1 [place] [id number] [place] [address] 83504- 7709 Nov, Insomnia, unspecified type G47.00 [facility] [place] [address] [address] Nov, Acute cystitis with hematuria N30.01 [place] [address] 18815- 0448 Oct, Insomnia, unspecified type G47.00 [place] [id number] [place] [address] 29989- 5018 Sep, Insomnia, unspecified type G47.00 [place] [id number] [place] [address] 07309- 4736 Aug, Insomnia, unspecified type G47.00 [place] [id number] [place] [address] 01086- 8506 Jul, Insomnia, unspecified type G47.00 [place] [id number] [place] [address] 55937- 3075 Jul, [facility] [place] [address] [address] -28[address] Jul, Dysuria R30.0 and Acute cystitis with hematuria N30.01 [place] [id number] [place] [address] 79222- 2896 Jun, Insomnia, unspecified type G47.00 [place] [id number] [place] [address] 82007- 7002 18 Jun, 2017 Encounter for immunization Z23 [facility] [id number] [place] [address] 41871- 6377 May, [facility] [id number] [place] [address] 40369- 7286 May, Insomnia, unspecified type G47.00 ; Lumbago with sciatica, left side M54.42 ; Lumbago with sciatica, right side M54.41 and Other chronic pain G89.29 [facility] [id number] [place] [address] 32208 -3265 14 May, 2017 Acute non-recurrent maxillary sinusitis J01.00 [facility] [id number] [place] [address] 35357- 6216 Apr, Other chronic pain G89.29 [place] [id number] [place] [address] 82284- 9431 Apr, Primary insomnia F51.01 and Pain in right leg M79.604 [place] [id number] [place] [address] 29925- 4602 Mar, Other chronic pain G89.29 [facility] [id number] [place] [address] 34151- 7096 Feb, Other chronic pain G89.29 [facility] [id number] [place] [address] 10118- 2735 Feb, Depression F32.9 and Insomnia, unspecified type G47.00 [facility] [id number] [place] [address] 09714- 8728 Feb, Other chronic pain G89.29 [facility] [id number] [place] [address] 41989- 0106 January, Arthritis M19.90 [facility] [id number] [place] [address] 62653- 0824 January, [facility] [address] [address] January, Other chronic pain G89.29 [facility] [id number] [place] [address] 68948- 7706 Dec, Other chronic pain G89.29 [facility] [id number] [place] [address] 04680- 5226 Nov, Depression F32.9 [facility] [address] 05552- 2546 13 Nov, 2016 Other chronic pain G89.29 [facility] [id number] [place] [address] 70103- 7656 Oct, Arthritis M19.90 [facility] [id number] [place] [address] 69839- 7146 Aug, [facility] [id number] [place] [address] 42648- 5006 Aug, [facility] [id number] [place] [address] 77175- 5341 Jul, Acquired hypothyroidism E03.9 [facility] [id number] [place] [address] 74727- 8171 Jul, [facility] [id number] [place] [address] 13989- 3254 Jul, [facility] [id number] [place] [address] 87967 2546 Jul, [facility] [id number] [place] [address] 06579- 8849 Jun, [facility] [id number] [place] [address] 00223- 0486 Jun, Encounter for immunization Z23 [facility] [id number] [place] [address] 70142- 5196 30 May, 2016 [facility] [address] [address]- [address]266 26 May, 2016 [facility] [id number] [place] [address] 38636 -5381 19 May, 2016 Acute non-recurrent maxillary sinusitis J01.00 and Bilateral acute serous otitis media, recurrence not specified H65.03 [facility] [id number] [place] [address] 20143- 5127 16 May, 2016 Rheumatoid arthritis 714.0 and Osteoarthritis, unspecified osteoarthritis type, unspecified site M19.90 [facility] [id number] [place] [address] 95313- 9960 May, [facility] [id number] [place] [address] 81916- 6813 Apr, [facility] [id number] [place] [address] 77070- 9776 Apr, OAB (overactive bladder) N32.81 ; Encounter for well woman exam with routine gynecological exam Z01.419 and Encounter for screening mammogram for breast cancer Z12.31 [place] [id number] [place] [address] 56409- 1390 Apr, [facility] [id number] [place] [address] 53493- 3893 Mar, [facility] [id number] [place] [address] 87661- 7013 Feb, Acquired hypothyroidism E03.9 [facility] [id number] [place] [address] 21894- 0878 Feb, [facility] [id number] [place] [address] 98545- 7200 January, [facility] [id number] [place] [address] 10327- 0432 January, [facility] [id number] [place] [address] 46140- 3610 Dec, [facility] [id number] [place] [address] 06119- 3101 Nov, [facility] [address] 16724- 5228 Oct, [facility] [address] 09650- 4683 Sep, Acquired hypothyroidism E03.9 [facility] [address] 69375- 2307 Aug, Acquired hypothyroidism E03.9 ; Hiatal hernia K44.9 and Lumbar neuritis M54.16 [place] [address] 25786- 0775 Jul, [place] [address] 10704- 2957 Jul, Major depressive disorder, single episode, moderate F32.1 [place] [address] 44523- 6101 Jul, Acquired hypothyroidism E03.9 [place] [address] 26723- 2690 Jun, Major depressive disorder, single episode, moderate F32.1 [place] [id number] [place] [address] 67872- 6280 Jun, [facility] [address] 70107- 7886 Jun, Depression F32.9 ; Irritable bowel syndrome with diarrhea K58.0 and Other chronic pain G89.29 [place] [id number] [place] [address] 19301- 1869 Jun, Family history of pinworm infection Z83.1 [place] [id number] [place] [address] 21278- 8787 Jun, Acquired hypothyroidism E03.9 [facility] [address] 41307- 8242 Jun, Unspecified hypothyroidism 244.9 [facility] [id number] [place] [address] 23692- 4386 Jun, [facility] [id number] [place] [address] 306526- 0030 16 May, 2015 Unspecified hypothyroidism 244.9 [facility] [id number] [place] [address] 66883- 8377 04 May, 2015 [facility] [id number] [place] [address] 85831- 6346 Apr, [facility] [id number] [place] [address] 46234- 9578 08 Mar, 2015 [facility] [id number] [place] [address] 17128- 7620 Feb, Paronychia 681.9 and Hypothyroidism 244.9 [facility] [id number] [place] [address] 81088- 0245 January, [facility] [id number] [place] [address] 84030- 5176 14 Dec, 2014 [facility] [id number] [address]- 4101 Dec, [facility] [address] [address]- 6984 Nov, [facility] [address] [address]- 8434 Nov, [facility] [address] [address]- 0939 Nov, [facility] [address] [address]- 6192 Nov, [facility] [id number], [place] [address]- 6933 Oct, [facility] [id number] [address]- 5221 Oct, [facility] [address] [id number] [place] [address]- 9520 Oct, [facility] [place] [facility] [address] [id number] [place] [address]- 0246 Oct, [facility] [place] [facility] [address] [id number] [place] [address]- 6388 Sep, [facility] [place] [facility] [address] [id number] [place] [address]- 9926 Sep, [facility] [place] [facility] [address] [id number] [place] [address]- 2130 Sep, [facility] [place] [facility] [address] [id number] [place] [address]- 0776 Sep, [facility] [place] [facility] [address] [id number] [place] [address]- 2460 Aug, [facility] [place] [facility] [address] [id number] [place] [address]- 5911 Aug, [facility] [place] [facility] [address] [id number] [place] [address]- 7770 Jul, [facility] [place] [facility] [address] [id number] [place] [address]- 4475 Jul, [facility] [place] [facility] [address] [id number] [place] [address]- 3973 Jun, [facility] [place] [facility] [address] [id number] [place] [address]- 4138 Jun, [facility] [place] [facility] [address] [id number] [place] [address]- 3935 May, [facility] [place] [facility] [address] [id number] [place] [address]65 May, [facility] [place] [facility] [address] [id number] [place] [address] 6267 May, [facility] [address] [facility] [id number] [address]- 3642 May, [facility] [address] [facility] [id number] [address]- 5781 May, [facility] [address] [facility] [id number] [address]- 8151 May, [facility] [address] [facility] [id number][place] [address]- 3966 May, [facility] [address] [facility] [id number], [place] [address]- 6290 May, [facility] [address] [facility] [id number] [place] [address] 23113- 4690 May, [facility] [address] [facility] [id number] [address]- 2785 May, [facility] [address], [place] [address]- 9776 Apr, [facility] [address] [facility] [id number][place] [address]- 6598 Apr, [facility] [address], [place] [address]- 7309 Apr, [facility] [address] [facility] [id number] [address]- 1884 Apr, [facility] [id number] [address]- 4534 Apr, [facility] [address] [facility] [id number], [place] [address]- 1799 Apr, IMMUNIZATIONS No Known Immunizations SOCIAL HISTORY Never Assessed REASON FOR VISIT Controlled Med Refill 08/27/17 PLAN OF CARE VITAL SIGNS MEDICATIONS Medication Instructions Dosage Frequency Start Date End Date Duration Status Hydrocodone-Acetaminophen 10-325 MG Orally 4 times a day 1 tablet as needed 6h Aug, 28 days Active RESULTS No Results PROCEDURES [...]
--- OUTSIDE RECORDS SUMMARY | 2018-08-28 09:49 | XMS REPORT ---
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 Name Role Phone MARIA INES LEAL CP Unavailable Allergies No Known Allergies Problems Problem Type Condition Code Onset Dates Condition Status Problem Unspecified hypothyroidism 244.9 Active Problem Rheumatoid arthritis 714.0 Active Problem Major depressive disorder, single episode, moderate F32.1 Active Problem Obesity, unspecified 278.00 Active Problem Dysuria 788.1 Active Problem Other malaise and fatigue 780.79 Active Medications Medication Code System Code Instructions Start Date End Date Status Dosage Hydrocodone-Acetaminophen [facility] [address]-79 10-325 MG every 8 hrs November 1 tablet as needed Results No Known Results Summary Purpose [employer] Submission
--- OUTSIDE RECORDS SUMMARY | 2018-08-28 09:49 | XMS REPORT ---
Author CLARA Celestin Organization [employer] Address Unknown Phone Unavailable Care Team Providers Care Critical Care Educator Name Role Phone CLARA ORCHA CP Unavailable Allergies No Known Allergies Problems Problem Type Condition Code Onset Dates Condition Status Problem Unspecified hypothyroidism 244.9 Active Problem Rheumatoid arthritis 714.0 Active Problem Major depressive disorder, single episode, moderate F32.1 Active Problem Obesity, unspecified 278.00 Active Assessment Major depressive disorder, single episode, moderate F32.1 Active Problem Dysuria 788.1 Active Problem Other malaise and fatigue 780.79 Active Medications No Known Medications Procedures Procedure Coding System Code Date Psychotherapy, patient &/family, 30 minutes, established patient CPT-4 13754 Jul 29, 2015 Results No Known Results Summary Purpose [employer] Submission
--- OUTSIDE RECORDS SUMMARY | 2018-08-28 09:49 | XMS REPORT ---
Author Author SELENE LANE [facility] Address [address] [place] [address] Care Team Providers Care Mental Tester Name Role Phone SELENE LANE Unavailable PROBLEMS Type Condition ICD9-CM Code COA90-XX Code Onset Dates Condition Status SNOMED Code Problem Acquired hypothyroidism E03.9 Active 249140112 Problem Other chronic pain G89.29 Active 87742615 Problem Arthritis M19.90 Active 0834458 Problem Major depressive disorder, single episode, moderate F32.1 Active 467436535 Problem Other chronic pain G89.29 Active 48829021 Problem Lumbago with sciatica, right side M54.41 Active 808313554563260 Problem Insomnia, unspecified type G47.00 Active 370346761 Problem Depression F32.9 Active 17344814 Problem Lumbago with sciatica, left side M54.42 Active 832856785 Problem Primary insomnia F51.01 Active 2381162 ALLERGIES No Known Allergies ENCOUNTERS Encounter Location Date Diagnosis [place] [id number] [place] [address] 32043- 7311 January, [place] [address] [address] Dec, Insomnia, unspecified type G47.00 [place] [address] [address]- 5094 Dec, Other chronic pain G89.29 [place] [address] 06399- 9077 Nov, Other chronic pain G89.29 ; Arthritis M19.90 ; Acquired hypothyroidism E03.9 ; Lumbago with sciatica, left side M54.42 ; Lumbago with sciatica, right side M54.41 and Major depressive disorder, single episode, moderate F32.1 [facility] [id number] [place] [address] 72804- 0989 Nov, Insomnia, unspecified type G47.00 [facility] [id number] [place] [address] 19413 -8602 Nov, Acute cystitis with hematuria N30.01 [place] [address] 90452- 2691 Oct, Insomnia, unspecified type G47.00 [place] [address] 30841- 5747 Sep, Insomnia, unspecified type G47.00 [place] [address] 27032- 7415 Aug, Insomnia, unspecified type G47.00 [place] [address] 00312- 8990 Jul, Insomnia, unspecified type G47.00 [place] [id number] [place] [address] 50058- 3904 Jul, [facility] [id number] [place] [address] 45305 -0618 Jul, Dysuria R30.0 and Acute cystitis with hematuria N30.01 [place] [id number] [place] [address] 82265- 4794 Jun, Insomnia, unspecified type G47.00 [place] [id number] [place] [address] 98743- 0549 Jun, Encounter for immunization Z23 [place] [address] 72319- 8551 May, [place] [id number] [place] [address] 18011- 2529 May, Insomnia, unspecified type G47.00 ; Lumbago with sciatica, left side M54.42 ; Lumbago with sciatica, right side M54.41 and Other chronic pain G89.29 [facility] [id number] [place] [address] 58026 -9833 May, Acute non-recurrent maxillary sinusitis J01.00 [facility] [id number] [place] [address] 76145- 6083 Apr, Other chronic pain G89.29 [facility] [id number] [place] [address] 84523- 3089 Apr, Primary insomnia F51.01 and Pain in right leg M79.604 [place] [id number] [place] [address] 24089- 3450 Mar, Other chronic pain G89.29 [facility] [id number] [place] [address] 67078- 6419 Feb, Other chronic pain G89.29 [facility] [address] 48282- 8438 Feb, Depression F32.9 and Insomnia, unspecified type G47.00 [facility] [id number] [place] [address] 35262- 8862 Feb, Other chronic pain G89.29 [facility] [id number] [place] [address] 22136- 4985 January, Arthritis M19.90 [facility] [id number] [place] [address] 51150- 2704 January, [facility] [id number] [place] [address] 87260- 5336 January, Other chronic pain G89.29 [facility] [id number] [place] [address] 74852- 8189 Dec, Other chronic pain G89.29 [facility] [id number] [place] [address] 80532- 5489 Nov, Depression F32.9 [place] [id number] [place] [address] 67150- 2958 Nov, Other chronic pain G89.29 [facility] [id number] [place] [address] 49768- 5248 Oct, Arthritis M19.90 [facility] [id number] [place] [address] 09776- 3139 Aug, [facility] [id number] [place] [address] 32304- 4342 Aug, [facility] [id number] [place] [address] 33916- 0409 Jul, Acquired hypothyroidism E03.9 [facility] [id number] [place] [address] 88179- 9384 Jul, [facility] [id number] [place] [address] 09474- 1590 Jul, [facility] [id number] [place] [address] 04761- 9682 Jul, [facility] [id number] [place] [address] 47736- 3455 Jun, [facility] [id number] [place] [address] 58695- 9042 Jun, Encounter for immunization Z23 [facility] [id number] [place] [address] 57027- 8044 30 May, 2016 [facility] [id number] [place] [address] 96875- 0589 May, [facility] [id number] [place] [address] 85200 -2077 May, Acute non-recurrent maxillary sinusitis J01.00 and Bilateral acute serous otitis media, recurrence not specified H65.03 [facility] [id number] [place] [address] 24211- 7512 16 May, 2016 Rheumatoid arthritis 714.0 and Osteoarthritis, unspecified osteoarthritis type, unspecified site M19.90 [facility] [address] [address] 7774 May, [facility] [address] [address]- 2121 Apr, [facility] [id number] [address] 3096 Apr, OAB (overactive bladder) N32.81 ; Encounter for well woman exam with routine gynecological exam Z01.419 and Encounter for screening mammogram for breast cancer Z12.31 [facility] [address] [address]- 4456 Apr, [facility] [id number] [address]- 9565 Mar, [facility] [id number] [place] [address] 70911- 8043 Feb, Acquired hypothyroidism E03.9 [facility] [address] [address]- 1083 Feb, [facility] [address] [address]- 6726 January, [facility] [address] [address]- 7914 January, [facility] [address] [address]- 2023 Dec, [facility] [address] [address]- 0940 Nov, [facility] [address] [address]- 9471 Oct, [facility] [id number] [address] 6267 Sep, Acquired hypothyroidism E03.9 [facility] [id number] [place] [address] 78182- 6854 Aug, Acquired hypothyroidism E03.9 ; Hiatal hernia K44.9 and Lumbar neuritis M54.16 [place] [address] 66928- 1862 Jul, [place] [address] 99583- 9679 Jul, Major depressive disorder, single episode, moderate F32.1 [place] [address] 72568- 6815 Jul, Acquired hypothyroidism E03.9 [place] [address] 397736- 0849 Jun, Major depressive disorder, single episode, moderate F32.1 [place] [address] 12345- 0019 Jun, [place] [address] 45850- 8148 Jun, Depression F32.9 ; Irritable bowel syndrome with diarrhea K58.0 and Other chronic pain G89.29 [place] [address] 43682- 4952 Jun, Family history of pinworm infection Z83.1 [place] [id number] [place] [address] 76164- 1901 Jun, Acquired hypothyroidism E03.9 [place] [address] 51698- 1554 Jun, Unspecified hypothyroidism 244.9 [place] [address] 06530- 5071 Jun, [place] [address] [place] [id number]- 3122 May, Unspecified hypothyroidism 244.9 [place] [address] 63335- 6195 May, [facility] [address] [address]- 7615 Apr, [facility] [id number] [place] [address] 85800- 8368 Mar, [facility] [id number] [place] [address] 43998- 6885 Feb, Paronychia 681.9 and Hypothyroidism 244.9 [facility] [id number] [place] [address] 80091- 6694 January, [facility] [id number] [place] [address] 89585- 6937 Dec, [facility] [id number] [place] [address] 52912- 5681 Dec, [facility] [id number] [place] [address] 65004- 5114 Nov, [facility] [id number] [place] [address] 07663- 8863 Nov, [facility] [id number] [place] [address] 91245- 5150 Nov, [facility] [address] [address]- 5153 Nov, [facility] [id number] [place] [address] 48802- 3844 Oct, [facility] [address] [address]- 0519 Oct, [facility] [address] [place] [address] 00425- 2869 Oct, [facility] [address] [address]- 8796 Oct, [facility] [address] [address]- 8720 Sep, [facility] [address] [id number] [place] [address]- 2074 Sep, [facility] [place] [facility] [address] [id number] [place] [address]- 2990 Sep, [facility] [place] [facility] [address] [id number] [place] [address]- 0470 Sep, [facility] [place] [facility] [address] [id number] [place] [address]- 7365 Aug, [facility] [place] [facility] [address] [id number] [place] [address]- 9039 Aug, [facility] [place] [facility] [address] [id number] [place] [address]- 7158 Jul, [facility] [place] [facility] [address] [id number] [place] [address]- 3651 Jul, [facility] [place] [facility] [address] [id number] [place] [address]- 5103 Jun, [facility] [place] [facility] [address] [id number] [place] [address]- 7403 Jun, [facility] [place] [facility] [address] [id number] [place] [address]- 0847 May, [facility] [place] [facility] [address] [id number] [place] [address]- 4462 25 May, 2014 [facility] [place] [facility] [address] [id number] [place] [address]- 9618 24 May, 2014 [facility] [place] [facility] [address] [id number] [place] [address]- 3063 24 May, 2014 [facility] [place] [facility] [address] [id number] [place] [address]- 2394 16 May, 2014 [facility] [place] [facility] [address] [id number] [place] [address]- 3173 16 May, 2014 [facility] [place] [facility] [address] [id number] [address]- 8622 May, [facility] [id number] [address]- 7226 May, [facility] [id number] [address]- 7379 May, [facility] [address] [address]- 2022 May, [facility] [address] [address]- 8827 Apr, [facility] [address] [address]- 5875 Apr, [facility] [address] [address]- 7268 Apr, [facility] [address] [address]- 5096 Apr, [facility] [address] [address]- 2081 Apr, [facility] [id number] [address]- 7854 Apr, IMMUNIZATIONS Vaccine Route Administration Date Status DEXAMETHASONE 4MG/ML (PER 1 MG) IM Intramuscular May 27, 2017 Administered DEPO MEDROL 40 MG/ML IM Intramuscular May 27, 2017 Administered SOCIAL HISTORY Never Assessed REASON FOR VISIT facial pain, ear pain, headache started last night JStrasserRN PLAN OF CARE Activity Details Follow Up prn Reason: VITAL SIGNS Height 63 in 2017-05-27 Weight 147.8 lbs 2017-05-27 Temperature 98.8 degrees Fahrenheit 2017-05-27 Heart Rate 84 bpm 2017-05-27 Respiratory Rate 20 2017-05-27 BMI 26.18 kg/m2 2017-05-27 Blood pressure systolic 110 mmHg 2017-05-27 Blood pressure diastolic 72 mmHg 2017-05-27 MEDICATIONS Medication Instructions Dosage Frequency Start Date End Date Duration Status Hydrocodone-Acetaminophen 10-325 MG Orally 4 times a day 1 tablet as needed 6h Apr, 28 days Active Levothyroxine Sodium 100 MCG TAKE ONE TABLET BY MOUTH ONCE DAILY 90 Active Prozac 20 mg Orally Once a day 1 capsule in the morning 24h 30 Active Flonase 50 MCG/ACT Nasally Once a day 1 spray in each nostril 24h May, 30 day(s) Active Amitriptyline HCl 50 mg Orally Once a day 1 tablet 24h Apr, 30 day(s) Active Myrbetriq 25 MG Orally Once a day 1 tablet 24h 30 Active RESULTS No Results PROCEDURES Procedure Date Ordered Result Body Site DEPO MEDROL 40 MG/ML May 27, 2017 THER/PROPH/DIAG INJ, SC/IM May 27, 2017 DEXAMETHASONE 4MG/ML (PER 1 MG) May 27, 2017 INSTRUCTIONS MEDICATIONS ADMINISTERED No Known Medications [...]
--- OUTSIDE RECORDS SUMMARY | 2018-08-28 09:49 | XMS REPORT ---
Author Author MARIA INES LEAL [facility] Address [address] [place] [address] Care Team Providers Care Senior Receptionist Name Role Phone MARIA INES LEAL Unavailable PROBLEMS Type Condition ICD9-CM Code [id number] Code Onset Dates Condition Status SNOMED Code Problem Major depressive disorder, single episode, moderate F32.1 Active 555974186 Problem Primary insomnia F51.01 Active 1025250 Problem Insomnia, unspecified type G47.00 Active 991835171 Problem Arthritis M19.90 Active 5349837 Problem Acquired hypothyroidism E03.9 Active 750096114 Problem Depression F32.9 Active 21604434 Problem Other chronic pain G89.29 Active 74905518 ALLERGIES Unknown Allergies SOCIAL HISTORY No smoking Hx information available PLAN OF CARE VITAL SIGNS MEDICATIONS Medication Instructions Dosage Frequency Start Date End Date Duration Status Hydrocodone-Acetaminophen 10-325 MG Orally 4 times a day 1 tablet as needed 6h Aug, Active RESULTS No Results PROCEDURES No Known procedures IMMUNIZATIONS No Known Immunizations
--- OUTSIDE RECORDS SUMMARY | 2018-08-28 09:49 | XMS REPORT ---
Author Author MARIA INES LEAL [facility] Address [address] [place] [address] Care Team Providers Care Competitive Intelligence Manager Name Role Phone MARIA INES LEAL Unavailable PROBLEMS Type Condition ICD9-CM Code ULV88-KB Code Onset Dates Condition Status SNOMED Code Problem Major depressive disorder, single episode, moderate F32.1 Active 492785265 Problem Primary insomnia F51.01 Active 6364703 Problem Insomnia, unspecified type G47.00 Active 231326310 Problem Arthritis M19.90 Active 8657619 Problem Acquired hypothyroidism E03.9 Active 098862095 Problem Depression F32.9 Active 19656499 Problem Other chronic pain G89.29 Active 59026409 ALLERGIES Unknown Allergies SOCIAL HISTORY No smoking Hx information available PLAN OF CARE VITAL SIGNS MEDICATIONS Unknown Medications RESULTS No Results PROCEDURES Procedure Date Ordered Related Diagnosis Body Site FLUARIX QUAD P-FREE 3 AND UP .50 2015Jul 01, 2016 SINGLE IMMUNIZATION ADMIN Jul 01, 2016 IMMUNIZATIONS Vaccine Route Administration Date Status FLUARIX QUAD P-FREE 3 AND UP .50 2015 IM Intramuscular Jul 01, 2016 Administered
--- OUTSIDE RECORDS SUMMARY | 2018-08-28 09:50 | XMS REPORT ---
Author Author MARIA INES LEAL Organization [facility] Address [address] [place] [address] Care Team Providers Care Manager Field Services Name Role Phone MARIA INES LEAL Unavailable PROBLEMS Type Condition ICD9-CM Code MLI16-LQ Code Onset Dates Condition Status SNOMED Code Problem Acquired hypothyroidism E03.9 Active 225380457 Problem Other chronic pain G89.29 Active 09154708 Problem Arthritis M19.90 Active 8728569 Problem Major depressive disorder, single episode, moderate F32.1 Active 512310036 Problem Other chronic pain G89.29 Active 49400175 Problem Lumbago with sciatica, right side M54.41 Active 383538968640571 Problem Insomnia, unspecified type G47.00 Active 756929354 Problem Depression F32.9 Active 38942743 Problem Lumbago with sciatica, left side M54.42 Active 747166910 Problem Primary insomnia F51.01 Active 4179101 ALLERGIES No Information ENCOUNTERS Encounter Location Date Diagnosis [place] [id number] [place] [address]175- 4714 Dec, [place] [address] [address] Dec, Insomnia, unspecified type G47.00 [place] [address] [address]- [address] Dec, Other chronic pain G89.29 [place] [address] 98996- 5297 Nov, Other chronic pain G89.29 ; Arthritis M19.90 ; Acquired hypothyroidism E03.9 ; Lumbago with sciatica, left side M54.42 ; Lumbago with sciatica, right side M54.41 and Major depressive disorder, single episode, moderate F32.1 [place] [id number] [address] Nov, Insomnia, unspecified type G47.00 [facility]ALK IN [facility] [id number] [place] [address] 19671 -7059 Nov, Acute cystitis with hematuria N30.01 [facility] [id number] [place] [address] 40914- 2751 Oct, Insomnia, unspecified type G47.00 [place] [id number] [place] [address] 69184- 8067 Sep, Insomnia, unspecified type G47.00 [place] [id number] [place] [address] 56531- 2506 Aug, Insomnia, unspecified type G47.00 [place] [id number] [place] [address] 21078- 3409 Jul, Insomnia, unspecified type G47.00 [place] [id number] [place] [address] 21471- 4761 Jul, [facility] WALK IN [facility] [id number] [place] [address]38 -8231 Jul, Dysuria R30.0 and Acute cystitis with hematuria N30.01 [place] [id number] [place] [address] 31912- 9274 Jun, Insomnia, unspecified type G47.00 [place] [id number] [place] [address] 07049- 3233 Jun, Encounter for immunization Z23 [place] [id number] [place] [address] 69312- 2322 May, [place] [id number] [place] [address] 59121- 3044 May, Insomnia, unspecified type G47.00 ; Lumbago with sciatica, left side M54.42 ; Lumbago with sciatica, right side M54.41 and Other chronic pain G89.29 [facility] [id number] [place] [address] 72645 -5167 14 May, 2017 Acute non-recurrent maxillary sinusitis J01.00 [facility] [id number] [place] [address] 47688- 7370 Apr, Other chronic pain G89.29 [facility] [id number] [place] [address] 24368- 3735 Apr, Primary insomnia F51.01 and Pain in right leg M79.604 [facility] [id number] [place] [address] 58236- 7503 Mar, Other chronic pain G89.29 [facility] [id number] [place] [address] 82066- 7531 Feb, Other chronic pain G89.29 [facility] [id number] [place] [address] 80175- 5560 Feb, Depression F32.9 and Insomnia, unspecified type G47.00 [facility] [id number] [place] [address] 04390- 2834 Feb, Other chronic pain G89.29 [facility] [id number] [place] [address] 99308- 7610 January, Arthritis M19.90 [facility] [id number] [place] [address] 33355- 9594 January, [facility] [id number] [place] [address] 57455- 3967 January, Other chronic pain G89.29 [facility] [id number] [place] [address] 98991- 7936 Dec, Other chronic pain G89.29 [facility] [id number] [place] [address] 90162- 2976 Nov, Depression F32.9 [facility] [id number] [address] 3007 Nov, Other chronic pain G89.29 [facility] [id number] [place] [address] 77770- 3790 Oct, Arthritis M19.90 [facility] [id number] [place] [address] 09700- 5774 Aug, [facility] [id number] [place] [address] 71803- 5173 Aug, [facility] [id number] [place] [address] 75219- 5147 Jul, Acquired hypothyroidism E03.9 [facility] [id number] [place] [address] 87570- 1652 Jul, [facility] [id number] [place] [address] 69140- 4533 Jul, [facility] [id number] [place] [address] 02029- 6843 Jul, [facility] [id number] [place] [address] 32464- 8616 Jun, [facility] [id number] [place] [address] 73885- 4663 Jun, Encounter for immunization Z23 [facility] [id number] [place] [address] 16446- 0920 30 May, 2016 [facility] [id number] [place] [address] 53730- 8134 May, [facility] [id number] [place] [address] 53486 -3336 May, Acute non-recurrent maxillary sinusitis J01.00 and Bilateral acute serous otitis media, recurrence not specified H65.03 [facility] [address] [address] 6432 16 May, 2016 Rheumatoid arthritis 714.0 and Osteoarthritis, unspecified osteoarthritis type, unspecified site M19.90 [facility] [address] [facility] [id number] [place] [address] May, [facility] [address] [facility] [id number] [address] Apr, [facility] [address] [address] Apr, OAB (overactive bladder) N32.81 ; Encounter for well woman exam with routine gynecological exam Z01.419 and Encounter for screening mammogram for breast cancer Z12.31 [facility] [address] [facility] [id number] [place] [address]- 5346 Apr, [facility] [address] [facility] [id number], [place] [address]- 7276 Mar, [facility] [address] [address]- 3549 Feb, Acquired hypothyroidism E03.9 [facility] [address] [facility] [id number], [place] [address]- 1424 Feb, [facility] [address] [place] [address]- 2667 January, [facility] [address], [place] [address]- 9083 January, [facility] [address], [place] [address]- 7478 Dec, [facility] [address] [facility] [id number], [place] [address]- 8879 Nov, [facility] [address] [facility] [id number], [place] [address]- 3256 Oct, [facility] [address] [facility] [id number][place]- 1246 Sep, Acquired hypothyroidism E03.9 [facility] [address], [place] [address]- 8748 Aug, Acquired hypothyroidism E03.9 ; Hiatal hernia K44.9 and Lumbar neuritis M54.16 [facility] [address] 41358- 4198 Jul, [facility] [id number] [place] [address] 53192- 7612 Jul, Major depressive disorder, single episode, moderate F32.1 [place] [address] 68031- 1195 Jul, Acquired hypothyroidism E03.9 [place] [address] 54124- 7132 Jun, Major depressive disorder, single episode, moderate F32.1 [place] [address] 11265- 3062 Jun, [place] [address] 45675- 8904 Jun, Depression F32.9 ; Irritable bowel syndrome with diarrhea K58.0 and Other chronic pain G89.29 [place] [address] 13879- 8278 Jun, Family history of pinworm infection Z83.1 [place] [id number] [place] [address] 52119- 8635 Jun, Acquired hypothyroidism E03.9 [place] [address] 04603- 6616 Jun, Unspecified hypothyroidism 244.9 [place] [id number] [place] [address] 05856- 3755 Jun, [place] [address] 14515- 6196 May, Unspecified hypothyroidism 244.9 [place] [id number] [place] [address] 02336- 8332 May, [place] [address] [id number] [place] [address]- 3369 Apr, [facility] [address] [place] [address]- 7727 Mar, [facility] [address] [place] [address]- 3329 Feb, Paronychia 681.9 and Hypothyroidism 244.9 [facility] [address] [facility] [id number], [place] [address]- 5352 January, [facility] [id number] [place] [address]- 0761 Dec, [facility] [address], [place] [address]- 7377 Dec, [facility] [id number] [address]- 6669 Nov, [facility] [place] [facility] [address], [place] [address]- 7140 Nov, [facility] [id number] [place] [address]- 4969 Nov, [facility] [place] [facility] [address] [place] [address]- 9453 Nov, [facility] [address], [place] [address]- 1328 Oct, [facility] [place] [facility] [address] [facility] [id number], [place] [address]- 3602 Oct, [facility] [place] [facility] [address] [facility] [id number] [place] [address]- 0211 Oct, [facility] [place] [facility] [address] [facility] [id number], [place] [address]- 5615 Oct, [facility] [place] [facility] [id number] [place] [address]- 4209 Sep, [facility] [place] [facility] [address] [facility] [id number] [place] [address]- 9458 Sep, [facility] [address] [id number] [place] [address]- 9855 Sep, [facility] [place] [facility] [address] [id number] [place] [address]- 1569 Sep, [facility] [address] [id number] [place] [address]- 2644 Aug, [facility] [place] [facility] [address] [id number] [place] [address]- 6323 Aug, [facility] [place] [facility] [address] [id number] [place] [address]- 1203 Jul, [facility] [place] [facility] [address] [id number] [place] [address]- 7604 Jul, [facility] [place] [facility] [address] [id number] [place] [address]- 6705 Jun, [facility] [place] [facility] [address] [id number] [place] [address]- 0256 Jun, [facility] [place] [facility] [address] [id number] [place] [address]- 7121 25 May, 2014 [facility] [place] [facility] [address] [id number] [place] [address]- 6292 25 May, 2014 [facility] [place] [facility] [address] [id number] [place] [address]- 2548 24 May, 2013 [facility] [place] [facility] [address] [id number] [place] [address]- 254 24 May, 2013 [facility] [place] [facility] [address] [id number] [place] [address]- 2544 16 May, 2013 [facility] [place] [facility] [address] [id number] [place] [address]- 2543 16 May, 2013 [facility] [place] [facility] [address] [id number] [place] [address]- 254 May, [facility] [address] [facility] [id number], [place] [address]- 0756 May, [facility] [address] [facility] [id number], [place] [address]- 0656 May, [facility] [address] [facility] [id number], [place] [address]- 6248 May, [facility] [address] [facility] [id number], [place] [address]- 2990 Apr, [facility] [address] [facility] [id number], [place] [address]- 7315 Apr, [facility] [address] [facility] [id number], [place] [address]- 4361 Apr, [facility] [address], [place] [address]- 0779 Apr, [facility] [address], [place] [address]- 2950 Apr, [facility] [address] [facility] [id number], [place] [address]- 5557 Apr, IMMUNIZATIONS No Known Immunizations SOCIAL HISTORY Never Assessed REASON FOR VISIT Controlled Med Refill 05/11/17 PLAN OF CARE VITAL SIGNS MEDICATIONS Medication Instructions Dosage Frequency Start Date End Date Duration Status Hydrocodone-Acetaminophen 10-325 MG Orally 4 times a day 1 tablet as needed 6h Apr, 28 days Active RESULTS No Results PROCEDURES [...]
--- OUTSIDE RECORDS SUMMARY | 2018-08-28 09:50 | XMS REPORT ---
Author Author ERWIN RIVERA Organization [employer] Address Unknown Phone Unavailable Care Team Providers Care Rayon Winder Name Role Phone ERWIN RIVERA CP Unavailable Allergies, Adverse Reactions, Alerts Substance Reaction Event Type N.K.D.A. Info Not Available Non Drug Allergy Problems Problem Type Condition Code Onset Dates Condition Status Assessment Irritable bowel syndrome with diarrhea K58.0 Active Assessment Other chronic pain G89.29 Active Problem Unspecified hypothyroidism 244.9 Active Problem Rheumatoid arthritis 714.0 Active Problem Major depressive disorder, single episode, moderate F32.1 Active Problem Obesity, unspecified 278.00 Active Assessment Depression F32.9 Active Problem Dysuria 788.1 Active Problem Other malaise and fatigue 780.79 Active Medications Medication Code System Code Instructions Start Date End Date Status Dosage Levothyroxine Sodium [facility] [address]-85 112 MCG Orally Once a day 1 tablet metformin NDC 0 500 mg 2 times a day Oct 22, 2014 1 tablet Vitamin D3 [facility] [address]391 5,000 unit Apr 18, 2014 1 Tablet 1 time per day Cymbalta [facility] [address]-39 60 MG Orally Once a day Jul 11, 2015 1 capsule Dicyclomine HCl [facility] [address]-09 20 MG Orally Four times a day as needed for cramping Jul 11, 2015 Sep 09, [address] [facility] [address]-47 1 MG Once a day Apr 18, 2014 1 tablet Procedures Procedure Coding System Code Date Office Visit, Est Pt., Level 3 CPT-4 87387 Jul 11, 2015 Vital Signs Date/Time: Jul 11, 2015 Temperature 97.9 F Weight 159 lbs Height 63 in BMI 28.16 Index Blood Pressure Diastolic 92 mmHg Blood Pressure Systolic 140 mmHg Cardiac Monitoring Heart Rate 80 bpm Results No Known Results Summary Purpose [employer] Submission
--- OUTSIDE RECORDS SUMMARY | 2018-08-28 09:50 | XMS REPORT ---
Author Author MARIA INES LEAL Organization [facility] Address [address] [place] [address] Care Team Providers Care Audio Visual Collections Coordinator Name Role Phone MARIA INES LEAL Unavailable PROBLEMS Type Condition ICD9-CM Code BTM45-FB Code Onset Dates Condition Status SNOMED Code Problem Acquired hypothyroidism E03.9 Active 083473155 Problem Other chronic pain G89.29 Active 04921044 Problem Arthritis M19.90 Active 9487464 Problem Major depressive disorder, single episode, moderate F32.1 Active 074828076 Problem Other chronic pain G89.29 Active 46963085 Problem Lumbago with sciatica, right side M54.41 Active 154177776374342 Problem Insomnia, unspecified type G47.00 Active 806221515 Problem Depression F32.9 Active 26413916 Problem Lumbago with sciatica, left side M54.42 Active 521179185 Problem Primary insomnia F51.01 Active 9498671 ALLERGIES No Known Allergies ENCOUNTERS Encounter Location Date Diagnosis [place] [id number] [place] [address] January, [place] [address] [address] Dec, Insomnia, unspecified type G47.00 [place] [address] [address] Dec, Other chronic pain G89.29 [place] [address] [address]- [address]67 Nov, Other chronic pain G89.29 ; Arthritis M19.90 ; Acquired hypothyroidism E03.9 ; Lumbago with sciatica, left side M54.42 ; Lumbago with sciatica, right side M54.41 and Major depressive disorder, single episode, moderate F32.1 [place] [id number] [address] Nov, Insomnia, unspecified type G47.00 [facility] [id number] [place] [address] 11358 -1059 Nov, Acute cystitis with hematuria N30.01 [facility] [id number] [place] [address] 51002- 4687 Oct, Insomnia, unspecified type G47.00 [facility] [id number] [place] [address] 66397- 8371 Sep, Insomnia, unspecified type G47.00 [place] [id number] [place] [address] 31110- 6280 Aug, Insomnia, unspecified type G47.00 [place] [id number] [place] [address] 14114- 8789 Jul, Insomnia, unspecified type G47.00 [place] [id number] [place] [address] 24150- 8147 Jul, [facility] [id number] [place] [address] 84050 -3565 Jul, Dysuria R30.0 and Acute cystitis with hematuria N30.01 [place] [id number] [place] [address] 72415- 8483 Jun, Insomnia, unspecified type G47.00 [place] [id number] [place] [address] 60091- 0723 Jun, Encounter for immunization Z23 [place] [id number] [place] [address] 63703- 8066 May, [place] [id number] [place] [address] 73507- 1063 May, Insomnia, unspecified type G47.00 ; Lumbago with sciatica, left side M54.42 ; Lumbago with sciatica, right side M54.41 and Other chronic pain G89.29 [facility] [id number] [place] [address] 26770 -7340 14 May, 2017 Acute non-recurrent maxillary sinusitis J01.00 [facility] [id number] [place] [address] 03427- 4935 Apr, Other chronic pain G89.29 [facility] [id number] [place] [address] 28070- 8956 Apr, Primary insomnia F51.01 and Pain in right leg M79.604 [facility] [id number] [place] [address] 16304- 9703 Mar, Other chronic pain G89.29 [facility] [id number] [place] [address] 71558- 0821 Feb, Other chronic pain G89.29 [facility] [id number] [place] [address] 26090- 6789 Feb, Depression F32.9 and Insomnia, unspecified type G47.00 [facility] [id number] [place] [address] 52618- 0662 Feb, Other chronic pain G89.29 [facility] [id number] [place] [address] 78759- 5057 January, Arthritis M19.90 [facility] [id number] [place] [address] 76694- 6156 January, [facility] [id number] [place] [address] 21668- 3051 January, Other chronic pain G89.29 [facility] [id number] [place] [address] 11686- 0407 Dec, Other chronic pain G89.29 [facility] [address] [place] [address] 28463- 9578 Nov, Depression F32.9 [facility] [id number] [address] 8766 Nov, Other chronic pain G89.29 [facility] [id number] [place] [address] 99553- 4544 Oct, Arthritis M19.90 [facility] [address] [place] [address] 98734- 2335 Aug, [facility] [id number] [place] [address] 58563- 7300 Aug, [facility] [id number] [place] [address] 18032- 9955 Jul, Acquired hypothyroidism E03.9 [facility] [id number] [place] [address] 67052- 6900 Jul, [facility] [id number] [place] [address] 61209- 6490 Jul, [facility] [id number] [place] [address] 03393- 0491 Jul, [facility] [id number] [place] [address] 32337- 0506 Jun, [facility] [id number] [place] [address] 88183- 4707 Jun, Encounter for immunization Z23 [facility] [id number] [place] [address] 48907- 0544 30 May, 2016 [facility] [id number] [place] [address] 76721- 9643 May, [facility] [address] [place] [address] 15694 -8783 May, Acute non-recurrent maxillary sinusitis J01.00 and Bilateral acute serous otitis media, recurrence not specified H65.03 [facility] [address] [address]- 6876 16 May, 2016 Rheumatoid arthritis 714.0 and Osteoarthritis, unspecified osteoarthritis type, unspecified site M19.90 [facility] [address] May, [facility] [address] [address]- 9176 Apr, [facility] [address] [address] Apr, OAB (overactive bladder) N32.81 ; Encounter for well woman exam with routine gynecological exam Z01.419 and Encounter for screening mammogram for breast cancer Z12.31 [facility] [address] [address]- 0203 Apr, [facility] [id number] [address]- 1836 Mar, [facility] [address] [address]- 4442 Feb, Acquired hypothyroidism E03.9 [facility] [address] [address]- 2860 Feb, [facility] [address] [address]- 9255 January, [facility] [address], [place] [address]- 8240 January, [facility] [address], [place] [address]- 8399 Dec, [facility] [id number] [address]- 8459 Nov, [facility] [address] [address]- 4326 Oct, [facility] [address] [facility] [id number] [address] Sep, Acquired hypothyroidism E03.9 [facility] [address], [place] [address]- 6635 Aug, Acquired hypothyroidism E03.9 ; Hiatal hernia K44.9 and Lumbar neuritis M54.16 [facility] [id number]- [address] Jul, [facility] [address] 57017- 4479 Jul, Major depressive disorder, single episode, moderate F32.1 [place] [address] 82258- 6935 Jul, Acquired hypothyroidism E03.9 [place] [address] 36298- 6948 Jun, Major depressive disorder, single episode, moderate F32.1 [place] [address] 51937- 2787 Jun, [facility] [address] 63892- 5061 Jun, Depression F32.9 ; Irritable bowel syndrome with diarrhea K58.0 and Other chronic pain G89.29 [place] [address] 99343- 2113 Jun, Family history of pinworm infection Z83.1 [place] [id number] [place] [address] 66163- 7743 Jun, Acquired hypothyroidism E03.9 [place] [address] 07987- 8991 Jun, Unspecified hypothyroidism 244.9 [place] [id number] [place] [address] 52639- 0481 Jun, [place] [id number]- 8622 May, Unspecified hypothyroidism 244.9 [place] [id number] [place] [address] 73102- 4147 May, [place] [address] [facility] [id number] [place] [address]- 3677 Apr, [facility] [address] [facility] [id number] [place] [address]- 2376 Mar, [facility] [address] [facility] [id number] [place] [address]- 6577 Feb, Paronychia 681.9 and Hypothyroidism 244.9 [facility] [address] [facility] [id number] [address]- 2570 January, [facility] [address] [facility] [id number] [place] [address]- 8319 Dec, [facility] [address], [place] [address]- 3928 Dec, [facility] [address], [place] [address]- 8172 Nov, [facility] [place] [facility] [id number] [address]- 9675 Nov, [facility] [id number] [address]- 3805 Nov, [facility] [place] [facility] [id number] [place] [address]- 9319 Nov, [facility] [address], [place] [address]- 3061 Oct, [facility] [place] [facility] [address] [facility] [id number], [place] [address]- 9619 Oct, [facility] [place] [facility] [address] [facility] [id number] [place] [address]- 7547 Oct, [facility] [place] [facility] [address] [facility] [id number] [place] [address]- 5190 Oct, [facility] [place] [facility] [id number] [place] [address]- 2419 Sep, [facility] [place] [facility] [address] [id number] [place] [address]- 6891 Sep, [facility] [place] [facility] [address] [id number] [place] [address]- 6871 Sep, [facility] [place] [facility] [address] [id number] [place] [address]- 8614 Sep, [facility] [place] [facility] [address] [id number] [place] [address]- 0312 Aug, [facility] [place] [facility] [address] [id number] [place] [address]- 3548 Aug, [facility] [place] [facility] [address] [id number] [place] [address]- 4711 Jul, [facility] [place] [facility] [address] [id number] [place] [address]- 6956 Jul, [facility] [place] [facility] [address] [id number] [place] [address]- 9901 Jun, [facility] [place] [facility] [address] [id number] [place] [address]- 4263 Jun, [facility] [place] [facility] [address] [id number] [place] [address]- 7977 25 May, 2014 [facility] [place] [facility] [address] [id number] [place] [address]- 1701 25 May, 2014 [facility] [place] [facility] [address] [id number] [place] [address]- 9359 24 May, 2014 [facility] [place] [facility] [address] [id number] [place] [address]- 2541 24 May, 2013 [facility] [place] [facility] [address] [id number] [place] [address]- 4677 16 May, 2014 [facility] [place] [facility] [address] [id number] [place] [address]- 2546 16 May, 2013 [facility] [place] [facility] [address] [id number] [place] [address]- 7855 May, [facility] [id number] [address]- 4065 May, [facility] [address] [facility] [id number], [place] [address]- 7378 May, [facility] [address] [facility] [id number], [place] [address]- 5741 May, [facility] [address] [facility] [id number], [place] [address]- 0697 Apr, [facility] [address] [facility] [id number], [place] [address]- 9346 Apr, [facility] [address] [facility] [id number], [place] [address]- 6763 Apr, [facility] [address], [place] [address]- 6766 Apr, [facility] [address], [place] [address]- 9303 Apr, [facility] [id number] [address]- 8159 Apr, IMMUNIZATIONS No Known Immunizations SOCIAL HISTORY Never Assessed REASON FOR VISIT leg pain, medication f/u-- H Cj JUNG PLAN OF CARE VITAL SIGNS Height 63 in 2017-06-04 Weight 142.5 lbs 2017-06-04 Temperature 98.2 degrees Fahrenheit 2017-06-04 Heart Rate 80 bpm 2017-06-04 Respiratory Rate 20 2017-06-04 BMI 25.24 kg/m2 2017-06-04 Blood pressure systolic 104 mmHg 2017-06-04 Blood pressure diastolic 82 mmHg 2017-06-04 MEDICATIONS Medication Instructions Dosage Frequency Start Date End Date Duration Status Myrbetriq 25 MG Orally Once a day 1 tablet 24h 30 Active Prozac 20 mg Orally Once a day 1 capsule in the morning 24h Active Levothyroxine Sodium 100 MCG Oral Once a day 1 capsule 24h Active Amitriptyline HCl 50 mg Orally Once a day 1 tablet 24h Apr, Active Flonase 50 MCG/ACT Nasally Once a day 1 spray in each nostril 24h May, 30 day(s) Active Hydrocodone-Acetaminophen 10-325 MG Orally 4 times a day 1 tablet as needed 6h May, 28 days Active RESULTS No Results PROCEDURES [...]
--- OUTSIDE RECORDS SUMMARY | 2018-08-28 09:50 | XMS REPORT ---
Author Author LORNA REY Organization [facility] Address [address] [place] [address] Care Team Providers Care Director Custom Name Role Phone NISREEN REYNETTE Unavailable PROBLEMS Type Condition ICD9-CM Code ZZE24-CB Code Onset Dates Condition Status SNOMED Code Problem Major depressive disorder, single episode, moderate F32.1 Active 892786537 Problem Primary insomnia F51.01 Active 8213768 Problem Insomnia, unspecified type G47.00 Active 179170795 Problem Arthritis M19.90 Active 3481238 Problem Acquired hypothyroidism E03.9 Active 462336302 Problem Depression F32.9 Active 97260496 Problem Other chronic pain G89.29 Active 33577684 ALLERGIES Substance Reaction Event Type Date Status N.K.D.A. Unknown Non Drug Allergy May, Unknown SOCIAL HISTORY No smoking Hx information available PLAN OF CARE Activity Details Follow Up 2 Weeks, prn Reason: VITAL SIGNS Height 63 in 2016-06-01 Weight 152 lbs 2016-06-01 Temperature 97.7 degrees Fahrenheit 2016-06-01 Heart Rate 82 bpm 2016-06-01 Respiratory Rate 20 2016-06-01 BMI 26.92 kg/m2 2016-06-01 MEDICATIONS Medication Instructions Dosage Frequency Start Date End Date Duration Status Meclizine HCl 25 MG Orally every 4-6 hours as needed 1 tablet as needed May, 30 day(s) Active Cymbalta 60 mg Orally Once a day 1 capsule 24h Jun, 30 day(s) Active Myrbetriq 25 MG Orally Once a day 1 tablet 24h Apr, May, 30 day(s) Active Azithromycin 250 MG Orally Once a day 2 tablets on the first day, then 1 tablet daily for 4 days 24h May, May, 5 day(s) Active Hydrocodone-Acetaminophen 10-325 MG Orally 4 times a day 1 tablet as needed 6h Nov, Active Levothyroxine Sodium 100 MCG Orally Once a day 1 tablet 24h 30 Active Neurontin 100 MG Orally Three times a day 1 capsule 8h 16 May, 2016 30 days Active Estradiol 1 MG 1 tablet 24h Apr, 30 Active RESULTS No Results PROCEDURES Procedure Date Ordered Related Diagnosis Body Site Office Visit, Est Pt., Level 3 Jun 01, 2016 DEPO MEDROL 40 MG/ML Jun 01, 2016 DEXAMETHASONE 4MG/ML (PER 1 MG) Jun 01, 2016 THER/PROPH/DIAG INJ, SC/IM Jun 01, 2016 IMMUNIZATIONS Vaccine Route Administration Date Status DEXAMETHASONE 4MG/ML (PER 1 MG) IM Intramuscular Jun 01, 2016 Administered DEPO MEDROL 40 MG/ML IM Intramuscular Jun 01, 2016 Administered
--- OUTSIDE RECORDS SUMMARY | 2018-08-28 09:50 | XMS REPORT ---
Author Author MARIA INES LEAL [facility] Address [address] [place] [address] Care Team Providers Care Network Relay Tester Name Role Phone MARIA INES LEAL Unavailable PROBLEMS Type Condition ICD9-CM Code [id number] Code Onset Dates Condition Status SNOMED Code Problem Major depressive disorder, single episode, moderate F32.1 Active 005913974 Problem Primary insomnia F51.01 Active 7340623 Problem Insomnia, unspecified type G47.00 Active 748196155 Problem Arthritis M19.90 Active 9322319 Problem Acquired hypothyroidism E03.9 Active 063311938 Problem Depression F32.9 Active 93121040 Problem Other chronic pain G89.29 Active 97018616 ALLERGIES No Known Allergies SOCIAL HISTORY Never Assessed PLAN OF CARE Activity Details Follow Up 4 Weeks Reason:arthritis VITAL SIGNS Height 63 in 2016-10-26 Weight 151.1 lbs 2016-10-26 Temperature 98.2 degrees Fahrenheit 2016-10-26 Heart Rate 84 bpm 2016-10-26 Respiratory Rate 20 2016-10-26 BMI 26.76 kg/m2 2016-10-26 Blood pressure systolic 121 mmHg 2016-10-26 Blood pressure diastolic 79 mmHg 2016-10-26 MEDICATIONS Medication Instructions Dosage Frequency Start Date End Date Duration Status Myrbetriq 25 MG Orally Once a day 1 tablet 24h 30 Active Meloxicam 7.5 MG Orally 2 times a day 1 tablet 12h Oct, Mar, 30 day(s) Active Hydrocodone-Acetaminophen 10-325 MG Orally 4 times a day 1 tablet as needed 6h Oct, Active Levothyroxine Sodium 100 MCG Orally Once a day *MUST HAVE APPT FOR REFILLS!!* 1 tablet Active RESULTS No Results PROCEDURES No Known procedures IMMUNIZATIONS No Known Immunizations MEDICAL (GENERAL) HISTORY Type Description Date Medical [...]
--- OUTSIDE RECORDS SUMMARY | 2018-08-28 09:50 | XMS REPORT ---
Author Author MARIA INES LEAL Organization [employer] Address Unknown Phone Unavailable Care Team Providers Care Computer Network Specialist Name Role Phone MARIA INES LEAL CP Unavailable Allergies No Known Allergies Problems Problem Type Condition ICD-9 Code Onset Dates Condition Status Problem Rheumatoid arthritis 714.0 Active Problem Dysuria 788.1 Active Problem Unspecified hypothyroidism 244.9 Active Problem Other malaise and fatigue 780.79 Active Problem Obesity, unspecified 278.00 Active Medications Medication Code System Code Instructions Start Date End Date Status Dosage Hydrocodone-Acetaminophen [facility] [address]-35 10-325 MG every 8 hrs November 1 tablet as needed Results No Known Results Summary Purpose [employer] Submission
--- OUTSIDE RECORDS SUMMARY | 2018-08-28 09:50 | XMS REPORT ---
Author Author MARIA INES LEAL Organization [employer] Address Unknown Phone Unavailable Care Team Providers Care Optical Systems Engineer Name Role Phone MARIA INES LEAL CP Unavailable Allergies No Known Allergies Problems Problem Type Condition Code Onset Dates Condition Status Problem Rheumatoid arthritis 714.0 Active Problem Dysuria 788.1 Active Problem Unspecified hypothyroidism 244.9 Active Assessment Unspecified hypothyroidism 244.9 Active Problem Other malaise and fatigue 780.79 Active Problem Obesity, unspecified 278.00 Active Medications No Known Medications Procedures Procedure Coding System Code Date VENIPUNCT, ROUTINE* CPT-4 20656 Jun 24, 2015 ASSAY THYROID STIM HORMONE CPT-4 13387 Jun 24, 2015 Results No Known Results Summary Purpose [employer] Submission
--- OUTSIDE RECORDS SUMMARY | 2018-08-28 09:50 | XMS REPORT ---
Author MARIA INES Guerrero Organization [employer] Address Unknown Phone Unavailable Care Team Providers Care Supervisor Picking Crew Name Role Phone MARIA INES LEAL CP Unavailable Allergies No Known Allergies Problems Problem Type Condition Code Onset Dates Condition Status Problem Major depressive disorder, single episode, moderate F32.1 Active Medications Medication Code System Code Instructions Start Date End Date Status Dosage Levothyroxine Sodium [facility] [id number] 100 MCG Orally Once a day *MUST HAVE APPT FOR REFILLS!!* 1 tablet Results No Known Results Summary Purpose [employer] Submission
--- OUTSIDE RECORDS SUMMARY | 2018-08-28 09:50 | XMS REPORT ---
Author MARIA INES Guerrero Organization [employer] Address Unknown Phone Unavailable Care Team Providers Care Perfect Binder Operator Name Role Phone MARIA INES LEAL [...] Start Date End Date Status Dosage Hydrocodone-Acetaminophen [facility] [address]-38 10-325 MG every 8 hrs. NO MORE THAN 3 DOSES PER DAY November 30, 2014 1 tablet as needed Results No Known Results Summary Purpose [employer] Submission
--- OUTSIDE RECORDS SUMMARY | 2018-08-28 09:51 | XMS REPORT ---
Author Author MARIA INES LEAL Organization [facility] Address [address] [place] [address] Care Team Providers Care Shaker Plate Operator Name Role Phone MARIA INES LEAL Unavailable PROBLEMS Type Condition ICD9-CM Code [id number] Code Onset Dates Condition Status SNOMED Code Problem Major depressive disorder, single episode, moderate F32.1 Active 990401809 Problem Arthritis M19.90 Active 0622229 Problem Acquired hypothyroidism E03.9 Active 106066350 Problem Other chronic pain G89.29 Active 40785294 Problem Lumbago with sciatica, right side M54.41 Active 670977772352762 Problem Depression F32.9 Active 80349714 Problem Other chronic pain G89.29 Active 46644975 Problem Lumbago with sciatica, left side M54.42 Active 395471795 Problem Primary insomnia F51.01 Active 6726341 ALLERGIES No Known Allergies ENCOUNTERS Encounter Location Date Diagnosis [place] [id number] [place] [address] 81399- 9118 January, Acute non-recurrent maxillary sinusitis J01.00 and Depression F32.9 [facility] [id number] [place] [address] 92524 -4774 January, Seasonal allergic rhinitis, unspecified trigger J30.2 [facility] [id number] [place] [address] 53287- 9666 January, Insomnia, unspecified type G47.00 [facility] [address] 9[address]38- [address]43 Dec, Insomnia, unspecified type G47.00 [facility] [id number] [place] [address] 14053- 9989 Dec, Other chronic pain G89.29 [facility] [id number] [place] [address] 01928- 5181 Nov, Other chronic pain G89.29 ; Arthritis M19.90 ; Acquired hypothyroidism E03.9 ; Lumbago with sciatica, left side M54.42 ; Lumbago with sciatica, right side M54.41 and Major depressive disorder, single episode, moderate F32.1 [place] [id number] [place] [address] 23063- 1649 Nov, Insomnia, unspecified type G47.00 [facility] [id number] [place] [address] 11212 -8083 Nov, Acute cystitis with hematuria N30.01 [place] [address] 85453- 6140 Oct, Insomnia, unspecified type G47.00 [place] [id number] [place] [address] 59927- 6295 Sep, Insomnia, unspecified type G47.00 [place] [id number] [place] [address] 22389- 4799 Aug, Insomnia, unspecified type G47.00 [place] [id number] [place] [address] 68751- 6471 Jul, Insomnia, unspecified type G47.00 [place] [id number] [place] [address] 59929- 5756 Jul, [facility] [address] 34[address] -7231 Jul, Dysuria R30.0 and Acute cystitis with hematuria N30.01 [place] [address] 17797- 8907 Jun, Insomnia, unspecified type G47.00 [place] [id number] [place] [address] 62719- 0489 Jun, Encounter for immunization Z23 [place] [id number] [place] [address] 29949- 8674 May, [facility] [id number] [place] [address] 72626- 0364 May, Insomnia, unspecified type G47.00 ; Lumbago with sciatica, left side M54.42 ; Lumbago with sciatica, right side M54.41 and Other chronic pain G89.29 [facility] [id number] [place] [address] 91138 -3820 May, Acute non-recurrent maxillary sinusitis J01.00 [facility] [id number] [place] [address] 46771- 7090 Apr, Other chronic pain G89.29 [facility] [id number] [place] [address] 89834- 0905 Apr, Primary insomnia F51.01 and Pain in right leg M79.604 [place] [id number] [place] [address] 95502- 0248 Mar, Other chronic pain G89.29 [place] [id number] [place] [address] 80808- 3292 Feb, Other chronic pain G89.29 [facility] [id number] [place] [address] 16605- 8749 Feb, Depression F32.9 and Insomnia, unspecified type G47.00 [place] [id number] [place] [address] 08238- 2006 Feb, Other chronic pain G89.29 [facility] [id number] [place] [address] 23915- 6867 January, Arthritis M19.90 [facility] [id number] [place] [address] 42488- 7483 January, [facility] [id number] [place] [address] 67747- 9104 January, Other chronic pain G89.29 [facility] [id number] [place] [address] 06008- 2223 10 Dec, 2016 Other chronic pain G89.29 [facility] [id number] [place] [address] 15590- 2370 29 Nov, 2016 Depression F32.9 [facility] [id number] [place] [address] 19590 2540 13 Nov, 2016 Other chronic pain G89.29 [facility] [id number] [place] [address] 62034- 5707 13 Oct, 2016 Arthritis M19.90 [facility] [address] 95891- 3812 Aug, [facility] [id number] [place] [address] 76739- 1375 Aug, [facility] [address] 17959- 1755 Jul, Acquired hypothyroidism E03.9 [facility] [id number] [place] [address] 24772- 3297 Jul, [facility] [id number] [place] [address] 48082- 7780 Jul, [facility] [id number] [place] [address] 57307- 7716 Jul, [facility] [id number] [place] [address] 08589- 1905 Jun, [facility] [id number] [place] [address] 01220- 4412 Jun, Encounter for immunization Z23 [facility] [id number] [place] [address] 40298- 7930 30 May, 2016 [facility] [id number] [place] [address] 33817- 7279 May, [facility] [address] [place] [address] 19 May, 2016 Acute non-recurrent maxillary sinusitis J01.00 and Bilateral acute serous otitis media, recurrence not specified H65.03 [facility] [id number] [place] [address] 40016- 1241 16 May, 2016 Rheumatoid arthritis 714.0 and Osteoarthritis, unspecified osteoarthritis type, unspecified site M19.90 [facility] [id number] [place] [address] 09204- 9795 May, [facility] [id number] [place] [address] 31154- 4083 Apr, [facility] [id number] [place] [address] 15797- 8788 Apr, OAB (overactive bladder) N32.81 ; Encounter for well woman exam with routine gynecological exam Z01.419 and Encounter for screening mammogram for breast cancer Z12.31 [place] [id number] [place] [address] 28993- 4221 Apr, [facility] [id number] [place] [address] 30200- 3296 Mar, [place] [id number] [place] [address] 83968- 9555 Feb, Acquired hypothyroidism E03.9 [place] [id number] [place] [address] 17193- 0357 Feb, [facility] [id number] [place] [address] 72513- 1523 January, [facility] [id number] [place] [address] 22068- 5791 January, [facility] [id number] [place] [address] 63048- 0447 Dec, [facility] [address] [place] [address] 07242- 5027 Nov, [place] [id number] [place] [address] 03711- 0200 Oct, [place] [address] 53419- 6141 Sep, Acquired hypothyroidism E03.9 [place] [address] 24533- 2855 Aug, Acquired hypothyroidism E03.9 ; Hiatal hernia K44.9 and Lumbar neuritis M54.16 [place] [address] 37833- 4952 Jul, [place] [address] 40876- 8706 Jul, Major depressive disorder, single episode, moderate F32.1 [place] [address] 15747- 1787 Jul, Acquired hypothyroidism E03.9 [place] [address] 75313- 7796 Jun, Major depressive disorder, single episode, moderate F32.1 [place] [address] 66198- 6568 Jun, [place] [address] 51852- 7096 Jun, Depression F32.9 ; Irritable bowel syndrome with diarrhea K58.0 and Other chronic pain G89.29 [place] [address] 95582- 4160 Jun, Family history of pinworm infection Z83.1 [place] [address] 62900- 9238 Jun, Acquired hypothyroidism E03.9 [place] [address] 09750- 2965 Jun, Unspecified hypothyroidism 244.9 [place] [address] 09495- 1426 Jun, [facility] [address] [address] 16 May, 2015 Unspecified hypothyroidism 244.9 [facility] [address] [address]- 6930 04 May, 2015 [facility] [address] [place] [address] 237001- 3008 Apr, [facility] [id number] [place] [address] 74439- 6872 Mar, [facility] [id number] [place] [address] 43397- 8746 Feb, Paronychia 681.9 and Hypothyroidism 244.9 [facility] [id number] [place] [address] 13087- 1162 January, [facility] [id number] [place] [address] 35352- 3029 14 Dec, 2014 [facility] [address] [address]- 2813 Dec, [facility] [address] [place] [address] 48715- 8458 Nov, [facility] [address] [address]- 9776 Nov, [facility] [address] [address]- 8775 Nov, [facility] [address] [address]- 9633 Nov, [facility] [address] [address]- 5019 Oct, [facility] [address] [address]- 4988 Oct, [facility] [address] [address]- 7507 Oct, [facility] [address] [id number] [place] [address]- 5089 Oct, [facility] [place] [facility] [address] [id number] [place] [address]- 7246 Sep, [facility] [place] [facility] [address] [id number] [place] [address]- 7508 Sep, [facility] [place] [facility] [address] [id number] [place] [address]- 6445 Sep, [facility] [address] [id number] [place] [address]- 0860 Sep, [facility] [place] [facility] [address] [id number] [place] [address]- 0198 Aug, [facility] [address] [facility] [id number] [place] [address]- 9213 Aug, [facility] [place] [facility] [address] [id number] [address]- 5259 Jul, [facility] [place] [facility] [address] [id number] [place] [address]- 1290 Jul, [facility] [place] [facility] [address] [facility] [id number] [place] [address]- 0521 Jun, [facility] [place] [facility] [address] [id number] [place] [address]- 5776 Jun, [facility] [place] [facility] [address] [id number] [place] [address]- 6191 May, [facility] [place] [facility] [address] [id number] [place] [address]- 4063 May, [facility] [place] [facility] [address] [facility] [id number] [place] [address]- 2884 May, [facility] [place] [facility] [address] [id number] [place] [address]- 7897 May, [facility] [place] [facility] [address] [facility] [id number] [place] [address]- 2853 16 May, 2014 [facility] [address] [facility] [id number] [address]- 8610 16 May, 2014 [facility] [address] [facility] [id number] [place] [address]- 4041 15 May, 2014 [facility] [address] [facility] [id number] [place] [address]- 9248 15 May, 2014 [facility] [address] [facility] [id number] [place] [address]- 5027 May, [facility] [address] [facility] [id number] [address]- 9156 May, [facility] [address] [address]- 8678 Apr, [facility] [address] [address]- 4130 Apr, [facility] [address] [address]- 3718 Apr, [facility] [address] [address]- 5448 Apr, [facility] [address] [address]- 9747 Apr, [facility] [id number] [address]- 2285 Apr, IMMUNIZATIONS No Known Immunizations SOCIAL HISTORY Never Assessed REASON FOR VISIT blood in urine, painful urination started yesterday REJItrasserRN PLAN OF CARE VITAL SIGNS Height 63 in 2017-07-14 Weight 146 lbs 2017-07-14 Temperature 98.2 degrees Fahrenheit 2017-07-14 Heart Rate 68 bpm 2017-07-14 Respiratory Rate 16 2017-07-14 BMI 25.86 kg/m2 2017-07-14 Blood pressure systolic 130 mmHg 2017-07-14 Blood pressure diastolic 72 mmHg 2017-07-14 MEDICATIONS Medication Instructions Dosage Frequency Start Date End Date Duration Status Amitriptyline HCl 50 mg Orally Once a day 1 tablet 24h Apr, Active Levothyroxine Sodium 100 MCG Oral Once a day 1 capsule 24h Active Myrbetriq 25 MG Orally Once a day 1 tablet 24h 30 Active Flonase 50 MCG/ACT Nasally Once a day 1 spray in each nostril 24h May, 30 day(s) Active Hydrocodone-Acetaminophen 10-325 MG Orally 4 times a day 1 tablet as needed 6h Jun, 28 days Active Bactrim DS 800-160 MG Orally Twice a day 1 tablet 12h Jul,Jul 10 day(s) Active Prozac 20 mg Orally Once a day 1 capsule in the morning 24h Active Ditropan XL 5 mg Orally Once a day 1 tablet 24h Jun, Aug, 30 day(s) Active RESULTS No Results PROCEDURES Procedure Date Ordered Result Body Site URINALYSIS, AUTO, W/O SCOPE Jul 14, 2017 [facility] Jul 14, 2017 INSTRUCTIONS MEDICATIONS ADMINISTERED No Known Medications [...]
--- OUTSIDE RECORDS SUMMARY | 2018-08-28 09:51 | XMS REPORT ---
Author Author CLARA ROCHA Organization [employer] Address Unknown Phone Unavailable Care Team Providers Care Health Service Worker Name Role Phone CLARA ROCHA CP Unavailable Allergies No Known Allergies Problems [...] Medications Procedures Procedure Coding System Code Date Psych diagnostic evaluation, established patient CPT-4 79743 Jul 11, 2015 Results No Known Results Summary Purpose [employer] Submission
--- OUTSIDE RECORDS SUMMARY | 2018-08-28 09:51 | XMS REPORT ---
Author MARIA INES Guerrero Organization [employer] Address Unknown Phone Unavailable Care Team Providers Care Gis Programmer Name Role Phone MARIA INES LEAL CP Unavailable Allergies No Known Allergies Problems Problem Type Condition Code Onset Dates Condition Status Problem Unspecified hypothyroidism 244.9 Active Problem Rheumatoid arthritis 714.0 Active Problem Major depressive disorder, single episode, moderate F32.1 Active Problem Obesity, unspecified 278.00 Active Problem Dysuria 788.1 Active Problem Other malaise and fatigue 780.79 Active Medications No Known Medications Results No Known Results Summary Purpose [employer] Submission
--- OUTSIDE RECORDS SUMMARY | 2018-08-28 09:51 | XMS REPORT ---
Author MARIA INES Guerrero Organization [employer] Address Unknown Phone Unavailable Care Team Providers Care Cable Systems Installer Name Role Phone MARIA INES LEAL CP [...] Start Date End Date Status Dosage Hydrocodone-Acetaminophen [facility] [address]-96 10-325 MG 4 times a day. PT MUST HAVE APPT FOR FURTHER REFILLS November 30, 2014 1 tablet as needed Results No Known Results Summary Purpose [employer] Submission
--- OUTSIDE RECORDS SUMMARY | 2018-08-28 09:51 | XMS REPORT ---
Author MARIA INES Guerrero Organization [employer] Address Unknown Phone Unavailable Care Team Providers Care Test Pilot Name Role Phone MARIA INES LEAL CP Unavailable Allergies No Known Allergies Problems Problem Type Condition Code Onset Dates Condition Status Problem Major depressive disorder, single episode, moderate F32.1 Active Medications Medication Code System Code Instructions Start Date End Date Status Dosage Hydrocodone-Acetaminophen [facility] [address]-81 10-325 MG Orally 4 times a day Jul 10, 2016 1 tablet as needed Results No Known Results Summary Purpose [employer] Submission
--- OUTSIDE RECORDS SUMMARY | 2018-08-28 09:51 | XMS REPORT ---
Author Author MARIA INES LEAL Organization [employer] Address Unknown Phone Unavailable Care Team Providers Care Marble Coper Name Role Phone MARIA INES LEAL CP [...] Date End Date Status Dosage Levothyroxine Sodium [facility] 55411877408 88 MCG Orally Once a day 1 tablet Results No Known Results Summary Purpose [employer] Submission
--- OUTSIDE RECORDS SUMMARY | 2018-08-28 09:51 | XMS REPORT ---
Author Author MARIA INES LEAL Organization [facility] Address [address] [place] [address] Care Team Providers Care Mobile Unit Assistant Name Role Phone MELMARIA INES Unavailable PROBLEMS Type Condition ICD9-CM Code [id number] Code Onset Dates Condition Status SNOMED Code Problem Acquired hypothyroidism E03.9 Active 617864370 Problem Other chronic pain G89.29 Active 63251851 Problem Arthritis M19.90 Active 6628608 Problem Major depressive disorder, single episode, moderate F32.1 Active 912455317 Problem Other chronic pain G89.29 Active 22204009 Problem Lumbago with sciatica, right side M54.41 Active 491206779978824 Problem Insomnia, unspecified type G47.00 Active 359292681 Problem Depression F32.9 Active 25241093 Problem Lumbago with sciatica, left side M54.42 Active 479305762 Problem Primary insomnia F51.01 Active 4811755 ALLERGIES No Information SOCIAL HISTORY Never Assessed PLAN OF CARE VITAL SIGNS MEDICATIONS Medication Instructions Dosage Frequency Start Date End Date Duration Status Meloxicam 7.5 MG Orally 2 times a day 1 tablet 12h 13 Oct, 2016 Apr, 90 days Active RESULTS No Results PROCEDURES No [...]
--- OUTSIDE RECORDS SUMMARY | 2018-08-28 09:51 | XMS REPORT ---
Author MARIA INES Guerrero Organization [employer] Address Unknown Phone Unavailable Care Team Providers Care Renewal Specialist Name Role Phone MARIA INES LEAL CP Unavailable Allergies No Known Allergies Problems Problem Type Condition Code Onset Dates Condition Status Problem Unspecified hypothyroidism 244.9 Active Problem Rheumatoid arthritis 714.0 Active Problem Major depressive disorder, single episode, moderate F32.1 Active Problem Obesity, unspecified 278.00 Active Assessment Acquired hypothyroidism E03.9 Active Problem Dysuria 788.1 Active Problem Other malaise and fatigue 780.79 Active Medications No Known Medications Procedures Procedure Coding System Code Date VENIPUNCT, ROUTINE* CPT-4 26611 Jul 26, 2015 ASSAY THYROID STIM HORMONE CPT-4 37381 Jul 26, 2015 Results Name Result Date Reference Range Unit Abnormality Flag ROUTINE VENIPUNCTURE Summary Purpose [employer] Submission
--- OUTSIDE RECORDS SUMMARY | 2018-08-28 09:51 | XMS REPORT ---
Author Author MARIA INES LEAL Organization [facility] Address [address] [place] [address] Care Team Providers Care Director Of Diagnostic Imaging Name Role Phone MELMARIA INES Unavailable PROBLEMS Type Condition ICD9-CM Code [id number]-CQ Code Onset Dates Condition Status SNOMED Code Problem Acquired hypothyroidism E03.9 Active 694589385 Problem Other chronic pain G89.29 Active 92293005 Problem Arthritis M19.90 Active 5984909 Problem Major depressive disorder, single episode, moderate F32.1 Active 030993468 Problem Other chronic pain G89.29 Active 07975317 Problem Lumbago with sciatica, right side M54.41 Active 119387019643572 Problem Insomnia, unspecified type G47.00 Active 678347172 Problem Depression F32.9 Active 32593022 Problem Lumbago with sciatica, left side M54.42 Active 826170616 Problem Primary insomnia F51.01 Active 2447555 ALLERGIES No Information SOCIAL HISTORY Never Assessed PLAN OF CARE VITAL SIGNS MEDICATIONS Medication Instructions Dosage Frequency Start Date End Date Duration Status Hydrocodone-Acetaminophen 10-325 MG Orally 4 times a day 1 tablet as needed 6h Feb, 28 days Active RESULTS No Results PROCEDURES [...]
--- OUTSIDE RECORDS SUMMARY | 2018-08-28 09:52 | XMS REPORT ---
Author MAEGAN Patino Organization [employer] Address Unknown Phone Unavailable Care Team Providers Care Wet Inspector Optical Glass Name Role Phone MAEGAN PICKETT CP Unavailable Allergies, Adverse Reactions, Alerts Substance Reaction Event Type N.K.D.A. Info Not Available Non Drug Allergy Problems Problem Type Condition Code Onset Dates Condition Status Assessment Encounter for well woman exam with routine gynecological exam Z01.419 Active Assessment Encounter for screening mammogram for breast cancer Z12.31 Active Problem Unspecified hypothyroidism 244.9 Active Problem Rheumatoid arthritis 714.0 Active Problem Major depressive disorder, single episode, moderate F32.1 Active Problem Obesity, unspecified 278.00 Active Assessment OAB (overactive bladder) N32.81 Active Problem Dysuria 788.1 Active Problem Other malaise and fatigue 780.79 Active Medications Medication Code System Code Instructions Start Date End Date Status Dosage Hydrocodone-Acetaminophen [facility] [address]-42 10-325 MG Orally 4 times a day November 30, 2014 1 tablet as needed Cymbalta [facility] [address]-05 60 mg Orally Once a day Jul 11, 2015 1 capsule Estradiol [facility] [address]-36 1 MG Once a day Apr 18, 2014 1 tablet Levothyroxine Sodium [facility] 80310269857 100 MCG Orally Once a day 1 tablet Myrbetriq [facility] [address]-74 25 MG Orally Once a day May 12, 2016 Jun 11, 2016 1 tablet Procedures Procedure Coding System Code Date Preventive Care Est Pt. Age 40-64 CPT-4 74704 May 12, 2016 Vital Signs Date/Time: May 12, 2016 Blood Pressure Systolic 118 mmHg Weight 155.2 lbs Height 63 in BMI 27.49 Index Blood Pressure Diastolic 70 mmHg Results No Known Results Summary Purpose [employer] Submission
--- OUTSIDE RECORDS SUMMARY | 2018-08-28 09:52 | XMS REPORT ---
Author Author HANSA LUKE Organization [employer] Address Unknown Phone Unavailable Care Team Providers Care Chin Strap Cutter Name Role Phone HANSA LUKE Unavailable Allergies No Known Allergies Problems Problem Type Condition Code Onset Dates Condition Status Problem Rheumatoid arthritis 714.0 Active Problem Dysuria 788.1 Active Problem Unspecified hypothyroidism 244.9 Active Assessment Acquired hypothyroidism E03.9 Active Problem Other malaise and fatigue 780.79 Active Problem Obesity, unspecified 278.00 Active Medications Medication Code System Code Instructions Start Date End Date Status Dosage Levothyroxine Sodium [facility] [id number] 112 MCG Orally Once a day 1 tablet Results No Known Results Summary Purpose [employer] Submission
--- OUTSIDE RECORDS SUMMARY | 2018-08-28 09:52 | XMS REPORT ---
Author Author MARIA INES LEAL Organization [facility] Address [address] [place] [address] Care Team Providers Care Gym Manager Name Role Phone MARIA INES LEAL Unavailable PROBLEMS Type Condition ICD9-CM Code IPC54-IO Code Onset Dates Condition Status SNOMED Code Problem Acquired hypothyroidism E03.9 Active 003447461 Problem Other chronic pain G89.29 Active 15913802 Problem Arthritis M19.90 Active 5369936 Problem Major depressive disorder, single episode, moderate F32.1 Active 596205869 Problem Other chronic pain G89.29 Active 77095492 Problem Lumbago with sciatica, right side M54.41 Active 591602669049420 Problem Insomnia, unspecified type G47.00 Active 212395963 Problem Depression F32.9 Active 80040209 Problem Lumbago with sciatica, left side M54.42 Active 637662602 Problem Primary insomnia F51.01 Active 0151408 ALLERGIES No Information ENCOUNTERS Encounter Location Date Diagnosis [place] [id number] [place] [address] 57958- 7739 Dec, [facility] [id number] [place] [address] 14201- 3498 Dec, Other chronic pain G89.29 [facility] [address] [address] Nov, Other chronic pain G89.29 ; Arthritis M19.90 ; Acquired hypothyroidism E03.9 ; Lumbago with sciatica, left side M54.42 ; Lumbago with sciatica, right side M54.41 and Major depressive disorder, single episode, moderate F32.1 [facility] [id number] [place] [address] 48196- 4850 Nov, Insomnia, unspecified type G47.00 [facility] [id number] [place] [address] 81386 -5096 Nov, Acute cystitis with hematuria N30.01 [place] [address] [address] Oct, Insomnia, unspecified type G47.00 [place] [address] 94861- 6998 Sep, Insomnia, unspecified type G47.00 [place] [address] 73742- 5740 Aug, Insomnia, unspecified type G47.00 [place] [address] 78946- 7172 Jul, Insomnia, unspecified type G47.00 [place] [id number] [place] [address] 88520- 8869 Jul, [facility] [place] [address] [address] Jul, Dysuria R30.0 and Acute cystitis with hematuria N30.01 [place] [address] 80094- 9685 Jun, Insomnia, unspecified type G47.00 [place] [id number] [place] [address] 38824- 0043 Jun, Encounter for immunization Z23 [place] [id number] [place] [address] 22666- 7113 May, [place] [id number] [place] [address] 40413- 0388 May, Insomnia, unspecified type G47.00 ; Lumbago with sciatica, left side M54.42 ; Lumbago with sciatica, right side M54.41 and Other chronic pain G89.29 [facility] [id number] [place] [address] 12461 -7985 May, Acute non-recurrent maxillary sinusitis J01.00 [facility] [address] [address] Apr, Other chronic pain G89.29 [facility] [address] [address] Apr, Primary insomnia F51.01 and Pain in right leg M79.604 [facility] [id number] [place] [address] 40604- 5201 Mar, Other chronic pain G89.29 [facility] [id number] [place] [address] 70515- 5156 Feb, Other chronic pain G89.29 [facility] [id number] [place] [address] 94463- 2916 Feb, Depression F32.9 and Insomnia, unspecified type G47.00 [facility] [id number] [place] [address] 22430- 5023 Feb, Other chronic pain G89.29 [facility] [id number] [place] [address] 34716- 9059 January, Arthritis M19.90 [facility] [id number] [place] [address] 14682- 3781 January, [facility] [address] [address] 2084 January, Other chronic pain G89.29 [facility] [address] [address]- 6568 Dec, Other chronic pain G89.29 [facility] [id number] [place] [address] 89996- 2431 Nov, Depression F32.9 [facility] [address] [address]- 4036 Nov, Other chronic pain G89.29 [facility] [id number] [place] [address] 31709- 2167 Oct, Arthritis M19.90 [facility] [address] 70062- 9540 Aug, [facility] [id number] [place] [address] 47915- 4582 Aug, [facility] [address] 12369- 3501 Jul, Acquired hypothyroidism E03.9 [facility] [address] 55735- 9867 Jul, [facility] [address] 90593- 8243 Jul, [facility] [id number] [place] [address] 86895- 0998 Jul, [facility] [id number] [place] [address] 37306- 8644 Jun, [facility] [id number] [place] [address] 76320- 7106 Jun, Encounter for immunization Z23 [facility] [id number] [place] [address] 15674- 3511 May, [facility] [id number] [place] [address] 69065- 1741 May, [facility] [id number] [place] [address] 42403 -3700 May, Acute non-recurrent maxillary sinusitis J01.00 and Bilateral acute serous otitis media, recurrence not specified H65.03 [facility] [address] 35412- 5706 16 May, 2016 Rheumatoid arthritis 714.0 and Osteoarthritis, unspecified osteoarthritis type, unspecified site M19.90 [facility] [id number] [place] [address] 24391- 1703 May, [facility] [address] [address]- 0616 Apr, [facility] [id number] [place] [address] 16525- 7175 Apr, OAB (overactive bladder) N32.81 ; Encounter for well woman exam with routine gynecological exam Z01.419 and Encounter for screening mammogram for breast cancer Z12.31 [facility] [id number] [place] [address] 22054- 0877 Apr, [facility] [id number] [place] [address] 03226- 2911 Mar, [facility] [id number] [place] [address] 19474- 6687 Feb, Acquired hypothyroidism E03.9 [place] [id number] [place] [address] 97920- 0694 Feb, [facility] [id number] [place] [address] 51944- 5076 January, [facility] [id number] [place] [address] 29085- 2003 January, [facility] [id number] [place] [address] 83500- 5487 Dec, [facility] [id number] [place] [address] 47952- 8267 Nov, [facility] [id number] [place] [address] 85004- 1449 Oct, [facility] [id number] [place] [address] 21699- 6494 Sep, Acquired hypothyroidism E03.9 [facility] [id number] [place] [address] 61490- 0368 Aug, Acquired hypothyroidism E03.9 ; Hiatal hernia K44.9 and Lumbar neuritis M54.16 [facility] [id number] [place] [address] 97349- 4382 Jul, [facility] [id number] [place] [address] 92767- 6562 Jul, Major depressive disorder, single episode, moderate F32.1 [facility] [id number] [place] [address] 45333- 4676 Jul, Acquired hypothyroidism E03.9 [facility] [address] 80917- 0995 Jun, Major depressive disorder, single episode, moderate F32.1 [facility] [address] 66699- 1783 Jun, [facility] [id number] [place] [address] 22498- 5936 Jun, Depression F32.9 ; Irritable bowel syndrome with diarrhea K58.0 and Other chronic pain G89.29 [facility] [id number] [place] [address] 64799- 2063 Jun, Family history of pinworm infection Z83.1 [facility] [id number] [place] [address] 82541- 4022 Jun, Acquired hypothyroidism E03.9 [facility] [id number] [place] [address] 21857- 5556 Jun, Unspecified hypothyroidism 244.9 [facility] [id number] [place] [address] 69175- 7525 Jun, [facility] [id number] [place] [address] 61500- 7924 May, Unspecified hypothyroidism 244.9 [facility] [id number] [place] [address] May, [facility] [id number] [place] [address] 35083- 8292 Apr, [facility] [address] [place] [address]- 8790 08 Mar, 2015 [facility] [address] [facility] [id number] [address]- 6425 Feb, Paronychia 681.9 and Hypothyroidism 244.9 [facility] [address] [facility] [id number] [place] [address]- 8718 January, [facility] [place] [facility] [address] [facility] [id number] [place] [address] 42796- 2814 14 Dec, 2014 [facility] [address] [facility] [id number] [place] [address]- 0308 Dec, [facility] [address] [facility] [id number] [place] [address] 62182- 5175 Nov, [facility] [address] [address]- 2485 Nov, [facility] [id number] [place] [address] 81298- 6169 Nov, [facility] [id number] [address]- 7800 Nov, [facility] [address] [address]- 8569 Oct, [facility] [place] [facility] [address] [address]- 8218 Oct, [facility] [place] [facility] [address] [address]- 4030 Oct, [facility] [place] [facility] [address] [facility] [id number] [place] [address]- 4984 Oct, [facility] [place] [facility] [address] [facility] [id number] [place] [address]- 3396 Sep, [facility] [place] [facility] [address] [facility] [id number] [place] [address]- 3700 Sep, [facility] [place] [facility] [address] [address]- 6859 Sep, [facility] [place] [facility] [address] [id number] [place] [address]- 0007 Sep, [facility] [place] [facility] [address] [id number] [place] [address]- 1685 Aug, [facility] [place] [facility] [address] [id number] [place] [address]- 0420 Aug, [facility] [place] [facility] [address] [id number] [place] [address]- 0715 Jul, [facility] [place] [facility] [address] [id number] [place] [address]- 0407 Jul, [facility] [place] [facility] [address] [id number] [place] [address]- 5315 Jun, [facility] [place] [facility] [address] [id number] [place] [address]- 4984 Jun, [facility] [place] [facility] [address] [id number] [place] [address]- 5815 25 May, 2014 [facility] [place] [facility] [address] [id number] [place] [address]- 6706 25 May, 2014 [facility] [place] [facility] [address] [facility] [id number] [place] [address]- 8380 24 May, 2014 [facility] [place] [facility] [address] [id number] [place] [address]- 1056 24 May, 2013 [facility] [place] [facility] [address] [id number] [place] [address]- 2545 16 May, 2013 [facility] [place] [facility] [address] [id number] [place] [address]- 2545 16 May, 2014 [facility] [place] [facility] [address] [facility] [id number] [place] [address]- 1873 15 May, 2014 [facility] [place] [facility] [address] [id number] [place] [address]- 2280 15 May, 2013 [facility] [place] [facility] [address] [facility] [id number] [place] [address]- 5213 May, [facility] [id number] [address]- 9890 May, [facility] [id number] [address]- 7218 Apr, [facility] [id number] [address]- 4924 Apr, [facility] [id number] [address]- 2459 Apr, [facility] [address] [address]- 5937 Apr, [facility] [address] [address]- 3980 Apr, [facility] [id number] [address]- 4346 Apr, IMMUNIZATIONS No Known Immunizations SOCIAL HISTORY Never Assessed REASON FOR VISIT Controlled Med Refill 04/13/17 PLAN OF CARE VITAL SIGNS MEDICATIONS Medication [...]
--- OUTSIDE RECORDS SUMMARY | 2018-08-28 09:52 | XMS REPORT ---
Author MARIA INES Guerrero Organization [employer] Address Unknown Phone Unavailable Care Team Providers Care Medical Delivery Technician Name Role Phone MARIA INES LEAL CP Unavailable Allergies No Known Allergies Problems Problem Type Condition Code Onset Dates Condition Status Problem Major depressive disorder, single episode, moderate F32.1 Active Medications Medication Code System Code Instructions Start Date End Date Status Dosage Levothyroxine Sodium [facility] [place] [id number] 100 MCG Orally Once a day 1 tablet Results No Known Results Summary Purpose [employer] Submission
--- OUTSIDE RECORDS SUMMARY | 2018-08-28 09:52 | XMS REPORT ---
Author Author ERWIN RIVERA Organization [facility] Address [address] [place] [address] Care Team Providers Care Disc Recordist Name Role Phone ERWIN RIVERA Unavailable PROBLEMS Type Condition ICD9-CM Code [id number] Code Onset Dates Condition Status SNOMED Code Problem Acquired hypothyroidism E03.9 Active 957467365 Problem Other chronic pain G89.29 Active 11778693 Problem Arthritis M19.90 Active 5578957 Problem Major depressive disorder, single episode, moderate F32.1 Active 842401108 Problem Other chronic pain G89.29 Active 93152984 Problem Lumbago with sciatica, right side M54.41 Active 370118807774858 Problem Insomnia, unspecified type G47.00 Active 241467569 Problem Depression F32.9 Active 36022341 Problem Lumbago with sciatica, left side M54.42 Active 284162938 Problem Primary insomnia F51.01 Active 5234456 ALLERGIES No Known Allergies ENCOUNTERS Encounter Location Date Diagnosis [facility] [address] [address] Nov, [facility] [address] [address] Nov, Insomnia, unspecified type G47.00 [facility] [address] [address] Nov, Acute cystitis with hematuria N30.01 [facility] [address] [address] Oct, Insomnia, unspecified type G47.00 [facility] [address] [address] Sep, Insomnia, unspecified type G47.00 [facility] [id number] [place] [address]13- 4444 Aug, Insomnia, unspecified type G47.00 [facility] [id number] [place] [address] 84803- 1011 Jul, Insomnia, unspecified type G47.00 [place] [place] [id number] [place] [address] 91664- 8082 Jul, [facility] [address] [address] Jul, Dysuria R30.0 and Acute cystitis with hematuria N30.01 [place] [address] [address]- [address] Jun, Insomnia, unspecified type G47.00 [place] [place] [id number] [place] [address] 38951- 8618 Jun, Encounter for immunization Z23 [place] [address] [address] May, [facility] [facility] [address] [address] May, Insomnia, unspecified type G47.00 ; Lumbago with sciatica, left side M54.42 ; Lumbago with sciatica, right side M54.41 and Other chronic pain G89.29 [facility] [id number] [place] [address] May, Acute non-recurrent maxillary sinusitis J01.00 [facility] [id number] [place] [address] 35741- 9565 Apr, Other chronic pain G89.29 [facility] [id number] [place] [address] 54182- 5547 Apr, Primary insomnia F51.01 and Pain in right leg M79.604 [facility] [facility] [address] [address]- [address]86 Mar, Other chronic pain G89.29 [facility] [id number] [place] [address]17- 1946 Feb, Other chronic pain G89.29 [facility] [id number] [place] [address] 09476- 1006 Feb, Depression F32.9 and Insomnia, unspecified type G47.00 [facility] [id number] [place] [address] 55352- 1444 Feb, Other chronic pain G89.29 [facility] [id number] [place] [address] 29104- 1906 January, Arthritis M19.90 [facility] [id number] [place] [address] 56312- [address]496 January, [facility] [id number] [place] [address] 48161- 5011 January, Other chronic pain G89.29 [facility] [id number] [place] [address] 33368- 8870 Dec, Other chronic pain G89.29 [facility] [id number] [place] [address] 65055- 8225 Nov, Depression F32.9 [facility] [id number] [place] [address] 49566- 8826 Nov, Other chronic pain G89.29 [facility] [id number] [place] [address] 44351- 0320 Oct, Ar[address]ritis M19.90 [facility] [id number] [place] [address] 69830- 8056 Aug, [facility] [id number] [place] [address] 39336- 0506 Aug, [facility] [id number] [place] [address] 78829- 8649 Jul, Acquired hypothyroidism E03.9 [facility] [id number] [place] [address] 70455- 8497 Jul, [facility] [id number] [place] [address]02- 6383 Jul, [facility] [id number] [place] [address] 82122- 9859 Jul, [facility] [address] 7[address]57- [address] Jun, [facility] [id number] [place] [address] 43887- 6409 Jun, Encounter for immunization Z23 [place] [address] 65542- 1488 30 May, 2016 [facility] [id number] [place] [address] 05596- 4358 May, [facility] [id number] [place] [address] 85620 -[address]7 May, Acute non-recurrent maxillary sinusitis J01.00 and Bilateral acute serous otitis media, recurrence not specified H65.03 [place] [id number] [place] [address] 48424- 6926 16 May, 2016 Rheumatoid arthritis 714.0 and Osteoarthritis, unspecified osteoarthritis type, unspecified site M19.90 [place] [id number] [place] [address] 78664- 0790 May, [place] [id number] [place] [address] 21720- 4859 Apr, [facility] [address] 89970- 1899 Apr, OAB (overactive bladder) N32.81 ; Encounter for well woman exam with routine gynecological exam Z01.419 and Encounter for screening mammogram for breast cancer Z12.31 [place] [id number] [place] [address] 18635- 0764 Apr, [facility] [id number] [place] [address] 53808- 1823 Mar, [facility] [id number] [place] [address] 30035- 0803 Feb, Acquired hypothyroidism E03.9 [facility] [id number] [place] [address] 46053- 7185 Feb, [facility] [id number] [place] [address] 19002- 5315 January, [facility] [id number] [place] [address] 85242- 5976 January, [facility] [id number] [place] [address] 63698- 4246 Dec, [facility] [id number] [place] [address] 80421- 1121 Nov, [facility] [id number] [place] [address] 20316- 2985 Oct, [facility] [id number] [place] [address] 67472- 0438 Sep, Acquired hypothyroidism E03.9 [facility] [id number] [place] [address] 77284- 4588 Aug, Acquired hypothyroidism E03.9 ; Hiatal hernia K44.9 and Lumbar [address]itis M54.16 [facility] [id number] [place] [address] 22747- 4349 Jul, [facility] [id number] [place] [address] 70227- 7162 16 Jul, 2015 Major depressive disorder, single episode, moderate F32.1 [facility] [id number] [place] [address] 62647- 7302 Jul, Acquired hypothyroidism E03.9 [facility] [id number] [place] [address] 57541- 5346 Jun, Major depressive disorder, single episode, moderate F32.1 [facility] [id number] [place] [address] 21861- 3647 Jun, [facility] [address] 94621- 7042 Jun, Depression F32.9 ; Irritable bowel syndrome with diarrhea K58.0 and Other chronic pain G89.29 [facility] [address] 04341- 0874 Jun, Family history of pinworm infection Z83.1 [facility] [address] 69279- 6650 Jun, Acquired hypothyroidism E03.9 [facility] [id number] [place] [address] 76008- 2757 Jun, Unspecified hypothyroidism 244.9 [facility] [address] 69231- 9912 Jun, [facility] [id number] [place] [address] 07297- 3767 May, Unspecified hypothyroidism 244.9 [facility] [id number] [place] [address] 29858- 8321 May, [facility] [id number] [place] [address] 84134- 4237 Apr, [facility] [address] 80019- 9874 Mar, [facility] [id number] [place] [address] 68208- 8919 Feb, Paronychia 681.[address] [facility] [id number] [place] [address] 44363- 2198 January, [facility] [address] 44516- 8744 Dec, [facility] [place] [facility] [address] [id number] [place] [address]- 7956 13 Dec, 2014 [facility] [place] [facility] [address] [id number] [place] [address]- 8116 Nov, [facility] [place] [facility] [address] [id number] [place] [address]- 9717 Nov, [facility] [place] [facility] [address] [id number] [place] [address]- 5106 Nov, [facility] [place] [facility] [address] [id number] [place] [address]- 3415 Nov, [facility] [place] [facility] [address] [id number] [place] [address]- 2904 Oct, [facility] [place] [facility] [address] [id number] [place] [address]- 1956 Oct, [facility] [place] [facility] [address] [id number] [place] [address]- 2163 Oct, [facility] [place] [facility] [address] [id number] [place] [address]- 6724 Oct, [facility] [place] [facility] [address] [id number] [place] [address]- 1362 Sep, [facility] [place] [facility] [address] [id number] [place] [address]- 1047 Sep, [facility] [place] [facility] [address] [id number], [place] [address]- 6006 Sep, [facility] [place] [facility] [address] [id number] [place] [address]- 6436 Sep, [facility] [place] [facility] [address] [id number] [place] [address]- 2766 Aug, [facility] [place] [facility] [address] [id number] [place] [address]- 2326 Aug, [facility] [place] [facility] [address] [id number] [place] [address]- 9323 Jul, [facility] [place] [facility] [address] [id number] [place] [address]- 4658 Jul, [facility] [place] [facility] [address] [id number] [place] [address]- 4700 Jun, [facility] [place] [facility] [address] [id number] [place] [address]- 2992 Jun, [facility] [place] [facility] [address] [id number] [place] [address] 2547 May, [facility] [place] [facility] [address] [id number] [place] [address]- 6436 May, [facility] [place] [facility] [address] [id number] [place] [address]- 3019 24 May, 2014 [facility] [place] [facility] [address] [id number] [place] [address]- 3922 24 May, 2014 [facility] [place] [facility] [address] [id number] [place] [address]- 2549 16 May, 2014 [facility] [place] [facility] [address] [id number] [place] [address] 2541 16 May, 2014 [facility] [place] [facility] [address] [id number] [place] [address]- 2543 15 May, 2014 [facility] [place] [facility] [address] [id number] [place] [address] 2546 15 May, 2014 [facility] [place] [facility] [address] [id number] [place] [address]- 2548 May, [facility] [place] [facility] [address] [id number] [place] [address] 2540 May, [facility] [place] [facility] [address] [id number] [place] [address]- 254 Apr, [facility] [place] [facility] [address] [id number] [place] [address]- 2719 Apr, [facility] [address] [facility] [id number] [address] Apr, [facility] [address] [facility] [id number] [address] Apr, [facility] [address] [facility] [id number], [place] [address]- [address]193 Apr, [facility] [address] [facility] [id number], [place] [address]- 6862 Apr, IMMUNIZATIONS No Known Immunizations SOCIAL HISTORY Never Assessed REASON FOR VISIT Depression - Pt states she is here for a check up for being put on Prozac. States she thinks it is helping but she is still not sleeping. - Zeeshan, Right ear pain. PLAN OF CARE Activity Details Follow Up 4 Weeks Reason:Lj for insomnia VITAL SIGNS Height 63 in 2017-03-03 Weight 150.0 lbs 2017-03-03 Temperature 97.7 degrees Fahrenheit 2017-03-03 Heart Rate 80 bpm 2017-03-03 Respiratory Rate 20 2017-03-03 BMI 26.57 kg/m2 2017-03-03 Blood pressure systolic 134 mmHg 2017-03-03 Blood pressure diastolic 86 mmHg 2017-03-03 MEDICATIONS Medication Instructions Dosage Frequency Start Date End Date Duration Status Prozac 20 mg Orally Once a day 1 capsule in the morning 24h Nov, 30 day(s) Active Myrbetriq 25 MG Orally Once a day 1 tablet 24h 30 Active Trazodone HCl 50 mg Orally Once a day 1 tablet at bedtime as needed 24h Feb, 30 day(s) Active Meloxicam 7.5 MG Orally 2 times a day 1 tablet 12h Oct, Apr, 90 days Active Hydrocodone-Acetaminophen 10-325 MG Orally 4 times a day 1 tablet as needed 6h Feb, 28 days Active Levothyroxine Sodium 100 MCG TAKE ONE TABLET BY MOUTH ONCE DAILY 90 Active RESULTS No Results PROCEDURES No Known procedures INSTRUCTIONS MEDICATIONS ADMINISTERED No Known Medications MEDICAL (GENERAL) HISTORY Type Description Date Medical History rheumatoid arthritis Medical History Hypothyroidism Medical History osteoarthritis Surgical History EGD Surgical History Colonoscopy (fiberoptic) 2008 Surgical History Thyroidectomy-Dr. Lin d/t benign mass 2010 Surgical History Bladder Sling- Dr. Fide, has had repair and continues to have problems 2008 Surgical History Hysterectomy-total for endometriosis and prolapse 2008 Surgical History Cholecystectomy 02/2016 Hospitalization History for surgeries only
--- OUTSIDE RECORDS SUMMARY | 2018-08-28 09:52 | XMS REPORT ---
Author Author ODETTE VITALE Organization [employer] Address Unknown Phone Unavailable Care Team Providers Care Handbell Choir Director Name Role Phone ODETTE VITALE CP Unavailable Allergies No Known Allergies Problems Problem Type Condition Code Onset Dates Condition Status Problem Rheumatoid arthritis 714.0 Active Problem Dysuria 788.1 Active Problem Unspecified hypothyroidism 244.9 Active Assessment Family history of pinworm infection Z83.1 Active Problem Other malaise and fatigue 780.79 Active Problem Obesity, unspecified 278.00 Active Medications Medication Code System Code Instructions Start Date End Date Status Dosage Albenza [facility] [address]-57 200 MG Orally taken together once, then repeat dose in 2 weeks Jun 25, 2015 2 tablets Results No Known Results Summary Purpose [employer] Submission
--- OUTSIDE RECORDS SUMMARY | 2018-08-28 09:52 | XMS REPORT ---
Author Author MARIA INES LEAL Organization [facility] Address [address] [place] [address] Care Team Providers Care Nuclear Licensing Engineer Name Role Phone MARIA INES LEAL Unavailable PROBLEMS Type Condition ICD9-CM Code [id number] Code Onset Dates Condition Status SNOMED Code Problem Acquired hypothyroidism E03.9 Active 933902222 Problem Other chronic pain G89.29 Active 39303620 Problem Arthritis M19.90 Active 4539950 Problem Major depressive disorder, single episode, moderate F32.1 Active 849865354 Problem Other chronic pain G89.29 Active 78769163 Problem Lumbago with sciatica, right side M54.41 Active [id number] Problem Insomnia, unspecified type G47.00 Active 321781918 Problem Depression F32.9 Active 22499369 Problem Lumbago with sciatica, left side M54.42 Active 385861858 Problem Primary insomnia F51.01 Active 7435763 ALLERGIES No Information ENCOUNTERS Encounter Location Date Diagnosis [facility] [id number] [place] [address] 98997- 3663 Nov, [facility] [address] [address]- [address] Nov, Insomnia, unspecified type G47.00 [facility] [id number] [place] [address] 12185 -8625 Nov, Acute cystitis with hematuria N30.01 [facility] [address] 42832- 2746 Oct, Insomnia, unspecified type G47.00 [facility] [id number] [place] [address] 94836- 5971 Sep, Insomnia, unspecified type G47.00 [facility] [address] [place] [address] Aug, Insomnia, unspecified type G47.00 [place] [address] 12115- 6393 Jul, Insomnia, unspecified type G47.00 [facility] [id number] [place] [address] 78773- 1914 Jul, [facility] [address] [address]457 Jul, Dysuria R30.0 and Acute cystitis with hematuria N30.01 [place] [address] 60203- 3281 Jun, Insomnia, unspecified type G47.00 [place] [address] 71760- 0991 Jun, Encounter for immunization Z23 [place] [address] 92435- 7614 May, [facility] [id number] [place] [address] 15580- 0921 May, Insomnia, unspecified type G47.00 ; Lumbago with sciatica, left side M54.42 ; Lumbago with sciatica, right side M54.41 and Other chronic pain G89.29 [facility] [id number] [place] [address] 96814 -8178 14 May, 2017 Acute non-recurrent maxillary sinusitis J01.00 [place] [id number] [place] [address] 25156- 0615 Apr, Other chronic pain G89.29 [place] [id number] [place] [address] 35228- 8965 Apr, Primary insomnia F51.01 and Pain in right leg M79.604 [place] [id number] [place] [address] 52667- 3948 Mar, Other chronic pain G89.29 [facility] [address] [address] Feb, Other chronic pain G89.29 [facility] [id number] [place] [address] 53695- 5446 Feb, Depression F32.9 and Insomnia, unspecified type G47.00 [facility] [id number] [place] [address] 10081- 2166 Feb, Other chronic pain G89.29 [facility] [id number] [place] [address] 96426- 1706 January, Arthritis M19.90 [facility] [id number] [place] [address] 73457- 2176 January, [facility] [id number] [place] [address] 77671- 7261 January, Other chronic pain G89.29 [facility] [id number] [place] [address] 45174- 5263 Dec, Other chronic pain G89.29 [facility] [id number] [place] [address] 37690- 9006 Nov, Depression F32.9 [facility] [address] [address] 378[address] Nov, Other chronic pain G89.29 [facility] [address] [address] 9772 Oct, Arthritis M19.90 [facility] [address] [address] 8[address] Aug, [facility] [id number] [place] [address] 818913- 9486 Aug, [facility] [address] [address] Jul, Acquired hypothyroidism E03.9 [facility] [address] [address] 1546 Jul, [facility] [id number] [place] [address] 58547- 7576 Jul, [facility] [id number] [place] [address] 62343- 3808 Jul, [facility] [id number] [place] [address] 39158- 7519 Jun, [facility] [id number] [place] [address] 93330- 9754 Jun, Encounter for immunization Z23 [facility] [address] 51030- 9980 30 May, 2016 [facility] [id number] [place] [address] 19432- 9782 26 May, 2016 [facility] [id number] [place] [address] 49746 -5498 May, Acute non-recurrent maxillary sinusitis J01.00 and Bilateral acute serous otitis media, recurrence not specified H65.03 [facility] [id number] [place] [address] 98463- 7833 16 May, 2016 Rheumatoid arthritis 714.0 and Osteoarthritis, unspecified osteoarthritis type, unspecified site M19.90 [place] [id number] [place] [address] 86557- 4604 May, [facility] [id number] [place] [address] 63600- 8486 Apr, [facility] [id number] [place] [address] 26681- 6854 Apr, OAB (overactive bladder) N32.81 ; Encounter for well woman exam with routine gynecological exam Z01.419 and Encounter for screening mammogram for breast cancer Z12.31 [place] [id number] [place] [address] 14267- 7073 Apr, [facility] [id number] [place] [address] 23571- 8622 Mar, [facility] [id number] [place] [address] 09918- 7037 Feb, Acquired hypothyroidism E03.9 [facility] [id number] [place] [address] 80321- 7431 Feb, [facility] [id number] [place] [address] 22835- 3649 January, [facility] [id number] [place] [address] 05278- 7886 January, [facility] [id number] [place] [address] 31266- 0726 Dec, [facility] [id number] [place] [address] 87789- 2112 Nov, [facility] [id number] [place] [address] 41542- 8288 Oct, [facility] [id number] [place] [address] 24122- 0724 Sep, Acquired hypothyroidism E03.9 [facility] [id number] [place] [address] 06576- 0501 Aug, Acquired hypothyroidism E03.9 ; Hiatal hernia K44.9 and Lumbar neuritis M54.16 [facility] [id number] [place] [address] 38062- 8413 Jul, [facility] [id number] [place] [address] 67833- 4000 16 Jul, 2015 Major depressive disorder, single episode, moderate F32.1 [facility] [id number] [place] [address] 59489- 4443 Jul, Acquired hypothyroidism E03.9 [facility] [id number] [place] [address] 17946- 9225 Jun, Major depressive disorder, single episode, moderate F32.1 [facility] [id number] [place] [address] 30656- 8643 Jun, [facility] [address] 20029- 6833 Jun, Depression F32.9 ; Irritable bowel syndrome with diarrhea K58.0 and Other chronic pain G89.29 [facility] [address] 84334- 9711 Jun, Family history of pinworm infection Z83.1 [facility] [address] 13850- 9150 Jun, Acquired hypothyroidism E03.9 [facility] [address] 35944- 3739 Jun, Unspecified hypothyroidism 244.9 [facility] [address] 32435- 0237 Jun, [facility] [address] 78053- 9720 May, Unspecified hypothyroidism 244.9 [facility] [address] 38257- 3462 May, [facility] [id number] [place] [address] 85692- 3088 Apr, [facility] [address] 23177- 4412 Mar, [facility] [id number] [place] [address] 20578- 6211 Feb, Paronychia 681.9 and Hypothyroidism 244.9 [facility] [address] 17912- 3675 January, [facility] [id number] [place] [address] 82757- 9854 Dec, [facility] [place] [facility] [address] [id number] [place] [address]- 0986 Dec, [facility] [place] [facility] [address] [id number] [place] [address]- 7489 Nov, [facility] [place] [facility] [address] [id number] [place] [address]- 0166 Nov, [facility] [place] [facility] [address] [id number] [place] [address]- 0593 Nov, [facility] [place] [facility] [address] [id number] [place] [address]- 2393 Nov, [facility] [place] [facility] [address] [id number] [place] [address]- 5377 Oct, [facility] [place] [facility] [address] [id number] [place] [address]- 2913 Oct, [facility] [place] [facility] [address] [id number] [place] [address]- 8729 Oct, [facility] [place] [facility] [address] [id number] [place] [address]- 1286 Oct, [facility] [place] [facility] [address] [id number] [place] [address]- 8757 Sep, [facility] [place] [facility] [address] [id number] [place] [address]- 9922 Sep, [facility] [place] [facility] [address] [id number] [place] [address]- 0556 Sep, [facility] [place] [facility] [address] [id number] [place] [address]- 6737 Sep, [facility] [place] [facility] [address] [id number] [place] [address]- 0456 Aug, [facility] [place] [facility] [address] [id number] [place] [address]- 8742 Aug, [facility] [place] [facility] [address] [id number] [place] [address]- 4684 Jul, [facility] [place] [facility] [address] [id number] [place] [address]- 9443 Jul, [facility] [place] [facility] [address] [id number] [place] [address]- 3146 Jun, [facility] [place] [facility] [address] [id number] [place] [address]- 1195 Jun, [facility] [place] [facility] [address] [id number] [place] [address]- 2853 May, [facility] [place] [facility] [address] [id number] [place] [address]- 2721 May, [facility] [place] [facility] [address] [id number] [place] [address]- 5717 May, [facility] [place] [facility] [address] [id number] [place] [address]- 8207 May, [facility] [place] [facility] [address] [id number] [place] [address]- 2962 16 May, 2014 [facility] [place] [facility] [address] [id number] [place] [address]- 1579 16 May, 2014 [facility] [place] [facility] [address] [id number] [place] [address]- 6448 15 May, 2014 [facility] [place] [facility] [address] [id number] [place] [address]- 8271 15 May, 2014 [facility] [place] [facility] [address] [id number] [address]- 3714 May, [facility] [place] [facility] [address] [id number] [place] [address]- 2543 May, [facility] [place] [facility] [address] [id number] [place] [address]- 6487 Apr, [facility] [place] [facility] [address] [id number] [place] [address]- 2799 Apr, [facility] [place] [facility] [address] [id number] [place] [address]- 5062 Apr, [facility] [address] [id number] [place] [address]- 0972 Apr, [facility] [address] [id number] [place] [address]- 2848 Apr, [facility] [address] [id number] [place] [address]- 3291 Apr, IMMUNIZATIONS No Known Immunizations SOCIAL HISTORY Never Assessed REASON FOR VISIT Controlled Med Refill 03/16 PLAN OF CARE VITAL SIGNS MEDICATIONS Medication Instructions Dosage Frequency Start Date End Date Duration Status Hydrocodone-Acetaminophen 10-325 MG Orally 4 times a day 1 tablet as needed 6h Mar, 28 days Active RESULTS No Results PROCEDURES [...]
--- OUTSIDE RECORDS SUMMARY | 2018-08-28 09:53 | XMS REPORT ---
Author Author MARIA INES LEAL Organization [facility] Address [address] [place] [address] Care Team Providers Care Treatment Technician Name Role Phone MARIA INES LEAL Unavailable PROBLEMS Type Condition ICD9-CM Code GOW59-CD Code Onset Dates Condition Status SNOMED Code Problem Acquired hypothyroidism E03.9 Active 946418192 Problem Other chronic pain G89.29 Active 16836492 Problem Arthritis M19.90 Active 9735803 Problem Major depressive disorder, single episode, moderate F32.1 Active 482247321 Problem Seasonal allergic rhinitis due to other allergic trigger J30.89 Active 687643255 Problem Other chronic pain G89.29 Active 58388454 Problem Primary insomnia F51.01 Active 0010984 Problem Depression F32.9 Active 53281569 Problem Lumbago with sciatica, right side M54.41 Active 602218174199386 Problem Lumbago with sciatica, left side M54.42 Active 204468865 ALLERGIES No Known Allergies ENCOUNTERS Encounter Location Date Diagnosis [place] [id number] [place] [address] 50570- 6696 May, Insomnia, unspecified type G47.00 [place] [id number] [place] [address] 80680- 1401 May, Seasonal allergic rhinitis due to other allergic trigger J30.89 and Arthritis M19.90 [place] [id number] [place] [address] 49367- 3483 Apr, Insomnia, unspecified type G47.00 [place] [id number] [place] [address] 21309- 1775 Mar, Insomnia, unspecified type G47.00 [place] [id number] [place] [address] 82463- 5796 Mar, Insomnia, unspecified type G47.00 [place] [id number] [place] [address] 52608- 5358 Feb, Insomnia, unspecified type G47.00 [place] [id number] [place] [address] 43942- 1224 January, Acute non-recurrent maxillary sinusitis J01.00 and Depression F32.9 [facility] [place] [address] [address]85 January, Seasonal allergic rhinitis, unspecified trigger J30.2 [place] [address] 57445- 0624 January, Insomnia, unspecified type G47.00 [place] [address] 29539- 1892 Dec, Insomnia, unspecified type G47.00 [place] [address] 43745- 5319 Dec, Other chronic pain G89.29 [place] [address] 41083- 8883 Nov, Other chronic pain G89.29 ; Arthritis M19.90 ; Acquired hypothyroidism E03.9 ; Lumbago with sciatica, left side M54.42 ; Lumbago with sciatica, right side M54.41 and Major depressive disorder, single episode, moderate F32.1 [place] [id number] [place] [address] 37855- 7038 Nov, Insomnia, unspecified type G47.00 [facility] [id number] [place] [address] 84708 -9670 Nov, Acute cystitis with hematuria N30.01 [place] [id number] [place] [address] 81140- 9486 Oct, Insomnia, unspecified type G47.00 [place] [address] 36821- 8115 Sep, Insomnia, unspecified type G47.00 [place] [id number] [place] [address] 89687- 9722 Aug, Insomnia, unspecified type G47.00 [place] [id number] [place] [address] 23099- 0448 15 Jul, 2017 Insomnia, unspecified type G47.00 [place] [address] 44373- 8991 Jul, [facility] [address] 9[address] -5333 Jul, Dysuria R30.0 and Acute cystitis with hematuria N30.01 [place] [id number] [place] [address] 75777- 4204 Jun, Insomnia, unspecified type G47.00 [place] [address] 73307- 5353 Jun, Encounter for immunization Z23 [place] [address] 37973- 3418 May, [place] [address] 64155- 8731 May, Insomnia, unspecified type G47.00 ; Lumbago with sciatica, left side M54.42 ; Lumbago with sciatica, right side M54.41 and Other chronic pain G89.29 [facility] [id number] [place] [address] 25162 -4854 14 May, 2017 Acute non-recurrent maxillary sinusitis J01.00 [place] [id number] [place] [address] 49877- 5075 28 Apr, 2017 Other chronic pain G89.29 [facility] [id number] [place] [address] 99133- 9736 14 Apr, 2017 Primary insomnia F51.01 and Pain in right leg M79.604 [facility] [address] [address] 69[address] Mar, Other chronic pain G89.29 [facility] [id number] [place] [address] 14197- 0646 Feb, Other chronic pain G89.29 [facility] [id number] [place] [address] 73483- 5216 Feb, Depression F32.9 and Insomnia, unspecified type G47.00 [facility] [id number] [place] [address] 44613- 4089 Feb, Other chronic pain G89.29 [facility] [id number] [place] [address] 13614- 7766 January, Arthritis M19.90 [facility] [id number] [place] [address] 25111- 4326 January, [facility] [id number] [place] [address] 91450- 6822 January, Other chronic pain G89.29 [facility] [id number] [place] [address] 74497- 2385 Dec, Other chronic pain G89.29 [facility] [address], [place] [address] 3743 Nov, Depression F32.9 [facility] [address] [place] [address] 58442 2546 Nov, Other chronic pain G89.29 [facility] [address], [place] [address]- 8276 Oct, Arthritis M19.90 [facility] [id number] [place] [address] 48351 2546 Aug, [facility] [address] [place] [address]- 0486 Aug, [facility] [id number] [place] [address] 78690- 3286 Jul, Acquired hypothyroidism E03.9 [facility] [id number] [place] [address] 43785- 6097 Jul, [facility] [id number] [place] [address] 19978- 6834 Jul, [facility] [address] 40156- 0931 Jul, [facility] [id number] [place] [address] 29848- 4986 Jun, [facility] [id number] [place] [address] 47571- 9137 Jun, Encounter for immunization Z23 [place] [id number] [place] [address] 48452- 7438 May, [facility] [id number] [place] [address] 65149- 0829 May, [facility] [id number] [place] [address] 65367 -6654 May, Acute non-recurrent maxillary sinusitis J01.00 and Bilateral acute serous otitis media, recurrence not specified H65.03 [facility] [id number] [place] [address] 10137- 0723 16 May, 2016 Rheumatoid arthritis 714.0 and Osteoarthritis, unspecified osteoarthritis type, unspecified site M19.90 [facility] [address] [place] [address] 52873- 9190 May, [place] [id number] [place] [address] 32083- 2105 Apr, [facility] [id number] [place] [address] 51639- 0003 Apr, OAB (overactive bladder) N32.81 ; Encounter for well woman exam with routine gynecological exam Z01.419 and Encounter for screening mammogram for breast cancer Z12.31 [facility] [address] [address]- 1303 Apr, [facility] [address] [place] [address] 25791- 2828 Mar, [facility] [address] [place] [address] 35096- 2134 Feb, Acquired hypothyroidism E03.9 [facility] [id number] [place] [address] 46967- 7178 Feb, [facility] [address] [place] [address] 14653- 9713 January, [facility] [id number] [place] [address] 13215- 4644 January, [facility] [id number] [place] [address] 31168- 2978 Dec, [facility] [address] [place] [address] 98286- 9517 Nov, [facility] [address] [place] [address] 24480- 7250 Oct, [facility] [address] [place] [address] 44146- 3404 Sep, Acquired hypothyroidism E03.9 [facility] [address] [place] [address] 57174- 1133 Aug, Acquired hypothyroidism E03.9 ; Hiatal hernia K44.9 and Lumbar neuritis M54.16 [facility] [address], [place] [address]- 8099 Jul, [facility] [id number] [place] [address] 17144- 2183 16 Jul, 2015 Major depressive disorder, single episode, moderate F32.1 [facility] [address] [place] [address] 29542- 2532 Jul, Acquired hypothyroidism E03.9 [facility] [address] [place] [address] 30953- 4959 Jun, Major depressive disorder, single episode, moderate F32.1 [facility] [id number] [place] [address] 74745- 5140 Jun, [facility] [id number] [place] [address] 03603- 1675 Jun, Depression F32.9 ; Irritable bowel syndrome with diarrhea K58.0 and Other chronic pain G89.29 [facility] [id number] [place] [address] 66318- 0434 Jun, Family history of pinworm infection Z83.1 [facility] [id number] [place] [address] 94988- 1535 Jun, Acquired hypothyroidism E03.9 [facility] [id number] [place] [address] 63742- 0348 Jun, Unspecified hypothyroidism 244.9 [facility] [id number] [place] [address] 47260- 0203 Jun, [facility] [id number] [place] [address] 81927- 4311 May, Unspecified hypothyroidism 244.9 [facility] [id number] [place] [address] 29815- 3102 May, [facility] [id number] [place] [address] 08222- 5472 Apr, [facility] [id number] [place] [address] 62099- 6924 Mar, [facility] [id number] [place] [address] 34880- 5191 Feb, Paronychia 681.9 and Hypothyroidism 244.9 [facility] [id number] [place] [address] 23063- 3521 January, [facility] [place] [facility] [address] [id number] [place] [address]- 5599 14 Dec, 2014 [facility] [place] [facility] [address] [id number] [place] [address]- 7737 Dec, [facility] [place] [facility] [address] [id number] [place] [address]- 2719 Nov, [facility] [place] [facility] [address] [id number] [place] [address]- 0657 Nov, [facility] [place] [facility] [address] [id number] [place] [address]- 6963 Nov, [facility] [place] [facility] [address] [id number] [place] [address]- 1831 Nov, [facility] [place] [facility] [address] [id number] [place] [address]- 4859 Oct, [facility] [place] [facility] [address] [id number] [place] [address]- 4221 Oct, [facility] [place] [facility] [address] [id number] [place] [address]- 7652 Oct, [facility] [place] [facility] [address] [facility] [id number] [place] [address]- 4276 Oct, [facility] [place] [facility] [address] [id number] [place] [address]- 6400 Sep, [facility] [place] [facility] [address] [id number] [place] [address]- 8358 Sep, [facility] [place] [facility] [address] [id number] [place] [address]- 1121 Sep, [facility] [place] [facility] [address] [id number] [place] [address]- 4346 Sep, [facility] [place] [facility] [address] [id number] [place] [address]- 5418 Aug, [facility] [place] [facility] [address] [id number], [place] [address]- 6181 Aug, [facility] [place] [facility] [address] [id number] [place] [address]- 5418 Jul, [facility] [place] [facility] [address] [id number] [place] [address]- 9957 Jul, [facility] [place] [facility] [address] [id number] [place] [address]- 9914 Jun, [facility] [place] [facility] [address] [id number] [place] [address]- 1909 Jun, [facility] [place] [facility] [address] [id number] [place] [address]- 4993 May, [facility] [place] [facility] [address] [id number] [place] [address]- 9631 May, [facility] [place] [facility] [address] [id number] [place] [address]- 9466 May, [facility] [place] [facility] [address] [id number] [place] [address]- 4595 24 May, 2014 [facility] [place] [facility] [address] [id number] [place] [address]- 7066 16 May, 2014 [facility] [place] [facility] [address] [id number] [place] [address]- 9526 16 May, 2014 [facility] [place] [facility] [address] [id number], [place] [address]- 5923 15 May, 2014 [facility] [place] [facility] [address] [id number], [place] [address]- 2542 15 May, 2014 [facility] [place] [facility] [address] [id number], [place] [address]- 7116 02 May, 2014 [facility] [place] [facility] [address] [id number] [place] [address]- 9967 02 May, 2014 [facility] [place] [facility] [address] [id number] [place] [address]- 9418 15 Apr, 2014 [facility] [place] [facility] [address] [facility] [id number] [place] [address]- 0041 Apr, [facility] [address] [facility] [id number], [place] [address]- 7154 Apr, [facility] [address] [facility] [id number], [place] [address]- 7545 Apr, [facility] [address] [facility] [id number], [place] [address]- 9049 Apr, [facility] [address] [facility] [id number], [place] [address]- 3935 Apr, IMMUNIZATIONS No Known Immunizations SOCIAL HISTORY Never Assessed REASON FOR VISIT Pain management (chronic) -Eldon JUNG , PT states for the last 3 days she has been expiriencing a sore throat along with some fluid in her ear and headaches. Denies diarrhea, denies change of appetite -Eldon JUNG PLAN OF CARE VITAL SIGNS Height 63 in 2018-05-26 Weight 128.0 lbs 2018-05-26 Temperature 98.5 degrees Fahrenheit 2018-05-26 Heart Rate 89 bpm 2018-05-26 Respiratory Rate 20 2018-05-26 Oximetry 98 % 2018-05-26 BMI 22.67 kg/m2 2018-05-26 Blood pressure systolic 120 mmHg 2018-05-26 Blood pressure diastolic 70 mmHg 2018-05-26 MEDICATIONS Medication Instructions Dosage Frequency Start Date End Date Duration Status PredniSONE 20 mg Orally Once a day 2 tablets 24h 13 May, 2018 May, 5 days Active Diclofenac Sodium 75 MG Orally Twice a day 1 tablet with food or milk 12h 13 May, 2018 Sep, 30 day(s) Active Levothyroxine Sodium 100 MCG 1 tablet on an empty stomach in the morning 24h 90 Active Hydrocodone-Acetaminophen 10-325 MG Orally 4 times a day 1 tablet as needed 6h 27 Apr, 2018 28 days Active Flonase 50 MCG/ACT Nasally Once a day 1 spray in each nostril 24h 14 May, 2017 Active Cymbalta 60 mg Orally Once a day 1 capsule 24h Dec, 30 day(s) Active Ditropan XL 5 MG TAKE ONE TABLET BY MOUTH ONCE DAILY 30 Active RESULTS No Results PROCEDURES No Known [...]
--- OUTSIDE RECORDS SUMMARY | 2018-08-28 09:53 | XMS REPORT ---
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 Name Role Phone MARIA INES LEAL Unavailable PROBLEMS Type Condition ICD9-CM Code IVT17-XW Code Onset Dates Condition Status SNOMED Code Problem Acquired hypothyroidism E03.9 Active 020277562 Problem Other chronic pain G89.29 Active 39482914 Problem Arthritis M19.90 Active 4795204 Problem Major depressive disorder, single episode, moderate F32.1 Active 476822177 Problem Seasonal allergic rhinitis due to other allergic trigger J30.89 Active 272536767 Problem Other chronic pain G89.29 Active 39057996 Problem Primary insomnia F51.01 Active 4517761 Problem Depression F32.9 Active 14228985 Problem Lumbago with sciatica, right side M54.41 Active 895901677414625 Problem Lumbago with sciatica, left side M54.42 Active 103709926 ALLERGIES No Information ENCOUNTERS Encounter Location Date Diagnosis [place] [id number] [place] [address] 52983- 2271 May, Insomnia, unspecified type G47.00 [place] [id number] [place] [address] 65855- 2015 May, Seasonal allergic rhinitis due to other allergic trigger J30.89 and Arthritis M19.90 [place] [id number] [place] [address] 97220- 8227 Apr, Insomnia, unspecified type G47.00 [place] [id number] [place] [address] 48930- 1360 Mar, Insomnia, unspecified type G47.00 [place] [id number] [place] [address] 12900- 5005 Mar, Insomnia, unspecified type G47.00 [place] [id number] [place] [address] 37552- 0811 Feb, Insomnia, unspecified type G47.00 [place] [id number] [place] [address] 63186- 0377 January, Acute non-recurrent maxillary sinusitis J01.00 and Depression F32.9 [facility] [place] [address] [address] January, Seasonal allergic rhinitis, unspecified trigger J30.2 [place] [address] 20683- 8423 January, Insomnia, unspecified type G47.00 [place] [address] 78096- 8595 Dec, Insomnia, unspecified type G47.00 [place] [address] 98175- 9853 Dec, Other chronic pain G89.29 [place] [id number] [place] [address] 12201- 7460 Nov, Other chronic pain G89.29 ; Arthritis M19.90 ; Acquired hypothyroidism E03.9 ; Lumbago with sciatica, left side M54.42 ; Lumbago with sciatica, right side M54.41 and Major depressive disorder, single episode, moderate F32.1 [place] [id number] [place] [address] 77384- 0845 Nov, Insomnia, unspecified type G47.00 [facility] [id number] [place] [address] 84733 -6095 Nov, Acute cystitis with hematuria N30.01 [place] [id number] [place] [address] 10480- 9714 Oct, Insomnia, unspecified type G47.00 [place] [address] 60471- 2780 Sep, Insomnia, unspecified type G47.00 [place] [id number] [place] [address] 62170- 9703 Aug, Insomnia, unspecified type G47.00 [place] [address] 61299- 4136 Jul, Insomnia, unspecified type G47.00 [place] [address] 66649- 7434 Jul, [facility] [address] 24749 -5690 Jul, Dysuria R30.0 and Acute cystitis with hematuria N30.01 [place] [address] 90805- 3052 Jun, Insomnia, unspecified type G47.00 [place] [address] 35203- 5249 Jun, Encounter for immunization Z23 [place] [address] 94041- 3625 May, [place] [address] 11870- 4074 May, Insomnia, unspecified type G47.00 ; Lumbago with sciatica, left side M54.42 ; Lumbago with sciatica, right side M54.41 and Other chronic pain G89.29 [facility] [id number] [place] [address] 50942 -5753 14 May, 2017 Acute non-recurrent maxillary sinusitis J01.00 [place] [address] 93971- 0771 28 Apr, 2017 Other chronic pain G89.29 [facility] [id number] [place] [address] 30960- 6619 14 Apr, 2017 Primary insomnia F51.01 and Pain in right leg M79.604 [facility] [address] [address] 2566 Mar, Other chronic pain G89.29 [facility] [id number] [place] [address] 24534- 9776 Feb, Other chronic pain G89.29 [facility] [address] [address] 4576 Feb, Depression F32.9 and Insomnia, unspecified type G47.00 [facility] [id number] [place] [address] 35928- 3191 Feb, Other chronic pain G89.29 [facility] [id number] [place] [address] 37943- 8686 January, Arthritis M19.90 [facility] [id number] [place] [address] 73118- 5846 January, [facility] [id number] [place] [address] 04719- 2096 January, Other chronic pain G89.29 [facility] [id number] [place] [address] 00815- 0121 Dec, Other chronic pain G89.29 [facility] [address] [address] 3280 Nov, Depression F32.9 [facility] [address] [place] [address] 03174 2546 Nov, Other chronic pain G89.29 [facility] [address] [address]- 2306 Oct, Arthritis M19.90 [facility] [id number] [place] [address] 81160- 7216 Aug, [facility] [address] [address]- 8206 Aug, [facility] [id number] [address] 3400 Jul, Acquired hypothyroidism E03.9 [facility] [id number] [place] [address] 71035- 4065 Jul, [facility] [id number] [place] [address] 78803- 5895 Jul, [facility] [id number] [place] [address] 67556- 9185 Jul, [facility] [id number] [place] [address] 39200- 3266 Jun, [facility] [id number] [place] [address] 93621- 0261 Jun, Encounter for immunization Z23 [facility] [id number] [place] [address] 22223- 9038 May, [facility] [id number] [place] [address] 27820- 6272 May, [facility] [address] [place] [address] 78572 -8057 May, Acute non-recurrent maxillary sinusitis J01.00 and Bilateral acute serous otitis media, recurrence not specified H65.03 [facility] [address] [place] [address] 85784- 5281 16 May, 2016 Rheumatoid arthritis 714.0 and Osteoarthritis, unspecified osteoarthritis type, unspecified site M19.90 [facility] [address] [address]- 6378 May, [facility] [id number] [place] [address] 04440- 6280 Apr, [facility] [id number] [place] [address] 14819- 6335 Apr, OAB (overactive bladder) N32.81 ; Encounter for well woman exam with routine gynecological exam Z01.419 and Encounter for screening mammogram for breast cancer Z12.31 [facility] [address] [address]- 5573 Apr, [facility] [id number] [place] [address] 69551- 2296 Mar, [facility] [address] [place] [address] 91128- 4203 Feb, Acquired hypothyroidism E03.9 [facility] [id number] [place] [address] 17003- 2805 Feb, [facility] [id number] [place] [address] 27881- 9364 January, [facility] [id number] [place] [address] 03697- 4092 January, [facility] [id number] [place] [address] 56647- 3404 Dec, [facility] [id number] [place] [address] 43931- 9394 Nov, [facility] [id number] [place] [address] 34967- 9930 Oct, [facility] [address] [place] [address] 13835- 8454 Sep, Acquired hypothyroidism E03.9 [facility] [address] [place] [address] 91269- 5108 Aug, Acquired hypothyroidism E03.9 ; Hiatal hernia K44.9 and Lumbar neuritis M54.16 [facility] [address] [address]- 6455 Jul, [facility] [id number] [place] [address] 49705- 1946 Jul, Major depressive disorder, single episode, moderate F32.1 [facility] [address] [place] [address] 66998- 2536 Jul, Acquired hypothyroidism E03.9 [facility] [address] [place] [address] 70367- 9178 Jun, Major depressive disorder, single episode, moderate F32.1 [facility] [id number] [place] [address] 93935- 5820 Jun, [facility] [id number] [place] [address] 28827- 0235 Jun, Depression F32.9 ; Irritable bowel syndrome with diarrhea K58.0 and Other chronic pain G89.29 [facility] [id number] [place] [address] 94277- 4719 Jun, Family history of pinworm infection Z83.1 [facility] [id number] [place] [address] 44356- 1786 Jun, Acquired hypothyroidism E03.9 [facility] [id number] [place] [address] 99119- 5454 Jun, Unspecified hypothyroidism 244.9 [facility] [id number] [place] [address] 72964- 8950 Jun, [facility] [id number] [place] [address] 00258- 0135 May, Unspecified hypothyroidism 244.9 [facility] [id number] [place] [address] 01949- 9203 May, [facility] [id number] [place] [address] 05406- 6381 Apr, [facility] [id number] [place] [address] 82406- 1408 Mar, [facility] [id number] [place] [address] 84588- 4512 Feb, Paronychia 681.9 and Hypothyroidism 244.9 [facility] [id number] [place] [address] 97427- 1420 January, [facility] [place] [facility] [address] [id number] [place] [address]- 9727 14 Dec, 2014 [facility] [place] [facility] [address] [id number] [place] [address]- 2340 13 Dec, 2014 [facility] [place] [facility] [address] [id number] [place] [address]- 9885 Nov, [facility] [place] [facility] [address] [id number] [place] [address]- 7351 Nov, [facility] [place] [facility] [address] [id number] [place] [address]- 6102 Nov, [facility] [place] [facility] [address] [id number] [place] [address]- 7621 Nov, [facility] [place] [facility] [address] [id number] [place] [address]- 6046 Oct, [facility] [place] [facility] [address] [id number] [place] [address]- 2309 Oct, [facility] [place] [facility] [address] [id number] [place] [address]- 2028 Oct, [facility] [place] [facility] [address] [id number] [place] [address]- 8846 Oct, [facility] [place] [facility] [address] [id number] [place] [address]- 1041 Sep, [facility] [place] [facility] [address] [id number] [place] [address]- 1471 Sep, [facility] [place] [facility] [address] [id number] [place] [address]- 8652 Sep, [facility] [place] [facility] [address] [id number] [place] [address]- 4346 Sep, [facility] [place] [facility] [address] [id number] [place] [address]- 8910 Aug, [facility] [place] [facility] [address] [id number] [place] [address]- 5983 Aug, [facility] [place] [facility] [address] [id number] [place] [address]- 3769 Jul, [facility] [place] [facility] [address] [id number] [place] [address]- 8570 Jul, [facility] [place] [facility] [address] [id number] [place] [address]- 8150 Jun, [facility] [place] [facility] [address] [id number] [place] [address]- 8167 Jun, [facility] [place] [facility] [address] [id number] [place] [address]- 4861 May, [facility] [place] [facility] [address] [id number] [place] [address]- 0187 May, [facility] [place] [facility] [address] [id number] [place] [address]- 8187 May, [facility] [place] [facility] [address] [id number] [place] [address]- 3244 24 May, 2014 [facility] [place] [facility] [address] [id number] [place] [address]- 6561 16 May, 2014 [facility] [place] [facility] [address] [id number] [place] [address]- 1915 16 May, 2014 [facility] [place] [facility] [address] [id number] [place] [address]- 0201 15 May, 2014 [facility] [place] [facility] [address] [id number] [place] [address]- 4516 15 May, 2014 [facility] [place] [facility] [address] [id number] [place] [address]- 9184 02 May, 2014 [facility] [place] [facility] [address] [id number] [place] [address]- 1392 02 May, 2014 [facility] [place] [facility] [address] [id number] [place] [address]- 9501 Apr, [facility] [place] [facility] [address] [facility] [id number] [place] [address]- 8629 Apr, [facility] [address] [facility] [id number] [place] [address]- 4571 Apr, [facility] [address] [facility] [id number] [place] [address]- 8371 Apr, [facility] [address] [facility] [id number] [place] [address]- 4374 Apr, [facility] [address] [facility] [id number] [place] [address]- 8004 Apr, IMMUNIZATIONS No Known Immunizations SOCIAL HISTORY Never Assessed REASON FOR VISIT Controlled Med Refill 05/09/18 PLAN OF CARE VITAL SIGNS MEDICATIONS Medication [...]
--- OUTSIDE RECORDS SUMMARY | 2018-08-28 09:53 | XMS REPORT ---
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 Info Not Available Non Drug Allergy Problems Problem Type Condition Code Onset Dates Condition Status Assessment Hiatal hernia K44.9 Active Assessment Lumbar neuritis M54.16 Active Problem Unspecified hypothyroidism 244.9 Active Problem Rheumatoid arthritis 714.0 Active Problem Major depressive disorder, single episode, moderate F32.1 Active Problem Obesity, unspecified 278.00 Active Assessment Acquired hypothyroidism E03.9 Active Problem Dysuria 788.1 Active Problem Other malaise and fatigue 780.79 Active Medications Medication Code System Code Instructions Start Date End Date Status Dosage Cymbalta [facility] [address]-67 60 MG Orally Once a day Jul 11, 2015 1 capsule Vitamin D3 [facility] 82172-71626 5,000 unit Apr 18, 2014 1 Tablet 1 time per day Levothyroxine Sodium [facility] [address]-20 100 MCG Orally Once a day Sep 02, 2015 1 tablet Estradiol [facility] [address]-12 1 MG Once a day Apr 18, 2014 1 tablet Hydrocodone-Acetaminophen [facility] [address]-58 10-325 MG 4 times a day November 30, 2014 1 tablet as needed Procedures Procedure Coding System Code Date Office Visit, Est Pt., Level 3 CPT-4 42102 Sep 02, 2015 CHEST X-RAY CPT-4 33793 Sep 02, 2015 Vital Signs Date/Time: Sep 02, 2015 Temperature 97.8 F Weight 153.5 lbs Height 63 in BMI 27.19 Index Blood Pressure Diastolic 70 mmHg Blood Pressure Systolic 130 mmHg Cardiac Monitoring Heart Rate 88 bpm Results No Known Results Summary Purpose [employer] Submission
--- OUTSIDE RECORDS SUMMARY | 2018-08-28 09:53 | XMS REPORT ---
Author Author MARIA INES LEAL Organization [facility] Address [address] [place] [address] Care Team Providers Care Hub Bander Name Role Phone MARIA INES LEAL Unavailable PROBLEMS Type Condition ICD9-CM Code CXE04-XS Code Onset Dates Condition Status SNOMED Code Problem Major depressive disorder, single episode, moderate F32.1 Active 561802984 Problem Arthritis M19.90 Active 5279332 Problem Acquired hypothyroidism E03.9 Active 382559349 Problem Other chronic pain G89.29 Active 44501853 Problem Lumbago with sciatica, right side M54.41 Active 895024636227828 Problem Depression F32.9 Active 31010688 Problem Other chronic pain G89.29 Active 82700776 Problem Lumbago with sciatica, left side M54.42 Active 029383302 Problem Primary insomnia F51.01 Active 1099356 ALLERGIES No Information ENCOUNTERS Encounter Location Date Diagnosis [place] [id number] [address] January, Acute non-recurrent maxillary sinusitis J01.00 and Depression F32.9 [facility] [address] [place] [id number] [place] [address]459 January, Seasonal allergic rhinitis, unspecified trigger J30.2 [facility] [id number] [place] [address] 84405- 1805 January, Insomnia, unspecified type G47.00 [facility] [address] [address] Dec, Insomnia, unspecified type G47.00 [facility] [id number] [place] [address] 20301- 0106 Dec, Other chronic pain G89.29 [facility] [id number] [place] [address] Nov, Other chronic pain G89.29 ; Arthritis M19.90 ; Acquired hypothyroidism E03.9 ; Lumbago with sciatica, left side M54.42 ; Lumbago with sciatica, right side M54.41 and Major depressive disorder, single episode, moderate F32.1 [place] [address] [address] Nov, Insomnia, unspecified type G47.00 [facility] [address] [address] Nov, Acute cystitis with hematuria N30.01 [place] [address] [address]30- 0778 Oct, Insomnia, unspecified type G47.00 [place] [address] 08245- 1296 Sep, Insomnia, unspecified type G47.00 [place] [address] 09148- 2602 Aug, Insomnia, unspecified type G47.00 [place] [address] 28761- 7468 Jul, Insomnia, unspecified type G47.00 [place] [address] [id number] [place] [address] 50819- 8749 Jul, [facility] [address] [address] Jul, Dysuria R30.0 and Acute cystitis with hematuria N30.01 [place] [address] [address]25- 5931 Jun, Insomnia, unspecified type G47.00 [place] [address] [place] [id number] [place] [address] 85195- 2677 Jun, Encounter for immunization Z23 [place] [address] [place] [place] [address] May, [facility] [id number] [place] [address] 85838- 9576 May, Insomnia, unspecified type G47.00 ; Lumbago with sciatica, left side M54.42 ; Lumbago with sciatica, right side M54.41 and Other chronic pain G89.29 [facility] [id number] [place] [address] 83436 -0064 14 May, 2017 Acute non-recurrent maxillary sinusitis J01.00 [facility] [id number] [place] [address] 07635- 4863 Apr, Other chronic pain G89.29 [facility] [address] [id number] [place] [address] 57610- 5602 Apr, Primary insomnia F51.01 and Pain in right leg M79.604 [facility] [address] [id number] [place] [address] 40591- 5426 Mar, Other chronic pain G89.29 [facility] [id number] [place] [address] 14613- 3030 Feb, Other chronic pain G89.29 [facility] [id number] [place] [address] 53285- 7628 Feb, Depression F32.9 and Insomnia, unspecified type G47.00 [facility] [id number] [place] [address] 67094- 4007 Feb, Other chronic pain G89.29 [facility] [id number] [place] [address] 61876- 5932 January, Arthritis M19.90 [facility] [id number] [place] [address] 33339- 7028 January, [facility] [id number] [place] [address] 25151- 8400 January, Other chronic pain G89.29 [facility] [address] [address] 10 Dec, 2016 Other chronic pain G89.29 [facility] [id number] [place] [address] 90306- 0132 29 Nov, 2016 Depression F32.9 [facility] [id number] [place] [address] 24738 2546 13 Nov, 2016 Other chronic pain G89.29 [facility] [id number] [place] [address] 73110 2544 13 Oct, 2016 Arthritis M19.90 [facility] [id number] [place] [address] 89701- 2296 Aug, [facility] [id number] [place] [address] 59156- 5542 Aug, [facility] [id number] [place] [address] 73204- 5205 Jul, Acquired hypothyroidism E03.9 [facility] [address] [id number] [place] [address] 02525- 7769 Jul, [facility] [id number] [place] [address] 67455- 9646 Jul, [facility] [id number] [place] [address] 98347- 4049 Jul, [facility] [id number] [place] [address] 38951- 4082 Jun, [facility] [address] [id number] [place] [address] 99584- 7844 Jun, Encounter for immunization Z23 [facility] [id number] [place] [address] 44631- 4844 30 May, 2016 [facility] [id number] [place] [address] 46626- 1994 May, [facility] [address] [place] [address] 19 May, 2016 Acute non-recurrent maxillary sinusitis J01.00 and Bilateral acute serous otitis media, recurrence not specified H65.03 [facility] [id number] [place] [address] 44235- 3313 16 May, 2016 Rheumatoid arthritis 714.0 and Osteoarthritis, unspecified osteoarthritis type, unspecified site M19.90 [place] [address] [id number] [place] [address] 99851- 1023 May, [facility] [id number] [place] [address] 03579- 4935 Apr, [facility] [address] [id number] [place] [address] 55260- 2896 Apr, OAB (overactive bladder) N32.81 ; Encounter for well woman exam with routine gynecological exam Z01.419 and Encounter for screening mammogram for breast cancer Z12.31 [place] [address] [id number] [place] [address] 61253- 6944 Apr, [facility] [address] [place] [id number] [place] [address] 14031- 5677 Mar, [place] [address] [id number] [place] [address] 45782- 1066 Feb, Acquired hypothyroidism E03.9 [place] [address] [id number] [place] [address] 02538- 2185 Feb, [facility] [address] [id number] [place] [address] 21961- 0801 January, [facility] [address] [id number] [place] [address] 18825- 1050 January, [facility] [address] [place] [id number] [place] [address] 14755- 0243 Dec, [facility] [address] [place] [address] 20366- 3780 Nov, [place] [address] [place] [id number] [place] [address] 75914- 3488 Oct, [place] [address] 79337- 1493 Sep, Acquired hypothyroidism E03.9 [place] [address] 52163- 8784 Aug, Acquired hypothyroidism E03.9 ; Hiatal hernia K44.9 and Lumbar neuritis M54.16 [place] [address] 27583- 7235 Jul, [place] [address] 05103- 9798 Jul, Major depressive disorder, single episode, moderate F32.1 [place] [address] 03360- 0082 Jul, Acquired hypothyroidism E03.9 [place] [address] 71735- 3197 Jun, Major depressive disorder, single episode, moderate F32.1 [place] [address] 80877- 1375 Jun, [place] [address] 25829- 9619 Jun, Depression F32.9 ; Irritable bowel syndrome with diarrhea K58.0 and Other chronic pain G89.29 [place] [address] [id number] [place] [address] 05036- 7916 Jun, Family history of pinworm infection Z83.1 [place] [address] 39377- 5408 Jun, Acquired hypothyroidism E03.9 [place] [address] 35734- 8196 Jun, Unspecified hypothyroidism 244.9 [place] [address] 68392- 8688 Jun, [facility] [address] [address] May, Unspecified hypothyroidism 244.9 [facility] [address] [place] [address] 88862- 1436 04 May, 2015 [facility] [id number] [place] [address] 60896- 4937 Apr, [facility] [id number] [place] [address] 23341- 3531 Mar, [facility] [id number] [place] [address] 43803- 3112 Feb, Paronychia 681.9 and Hypothyroidism 244.9 [facility] [id number] [place] [address] 90968- 5294 January, [facility] [id number] [place] [address] 86705- 8603 14 Dec, 2014 [facility] [id number] [place] [address] 96947- 4141 Dec, [facility] [id number] [place] [address] 47948- 4786 Nov, [facility] [address] [address]- 0488 Nov, [facility] [address] [address]- 5764 Nov, [facility] [address] [address] Nov, [facility] [id number] [place] [address] 93562- 1872 Oct, [facility] [address] [address] 8800 Oct, [facility] [id number] [place] [address] 30583- 7253 Oct, [facility] [place] [facility] [address] [id number] [place] [address]- 5558 Oct, [facility] [place] [facility] [address] [id number] [address]- 8879 Sep, [facility] [place] [facility] [address] [facility] [id number] [place] [address]- 1137 Sep, [facility] [place] [facility] [address] [id number] [place] [address]- 1586 Sep, [facility] [place] [facility] [address] [id number] [place] [address]- 2277 Sep, [facility] [place] [facility] [address] [facility] [id number] [place] [address]- 3192 Aug, [facility] [address] [facility] [id number] [address]- 0653 Aug, [facility] [place] [facility] [address] [facility] [id number] [address]- 6162 Jul, [facility] [place] [facility] [address] [facility] [id number] [place] [address]- 5534 Jul, [facility] [place] [facility] [address] [facility] [id number] [address]- 8949 Jun, [facility] [place] [facility] [address] [id number] [address]- 1740 Jun, [facility] [place] [facility] [address] [id number] [address]- 5436 May, [facility] [place] [facility] [address] [id number] [address]- 8206 May, [facility] [place] [facility] [address] [facility] [id number] [address]- 8300 May, [facility] [place] [facility] [address] [facility] [id number] [address]- 9901 May, [facility] [place] [facility] [address] [address]- 2081 16 May, 2014 [facility] [address] [facility] [id number] [address]- 0119 16 May, 2014 [facility] [address] [facility] [id number] [place] [address]- 4077 May, [facility] [address] [facility] [id number] [address]- 2209 May, [facility] [address] [facility] [id number] [place] [address]- 3491 May, [facility] [address] [address]- 9058 May, [facility] [address] [address]- 2933 Apr, [facility] [address] [address]- 0442 Apr, [facility] [address] [address]- 7339 Apr, [facility] [address] [address]- 5598 Apr, [facility] [address] [address]- 0478 Apr, [facility] [id number] [address]- 1765 Apr, IMMUNIZATIONS No Known Immunizations SOCIAL HISTORY Never Assessed REASON FOR VISIT PLAN OF CARE VITAL SIGNS MEDICATIONS Medication Instructions Dosage Frequency Start Date End Date Duration Status Cipro 500 mg Orally Twice a day 1 tablet 12h Jul, Jul, 10 day(s) Active RESULTS No Results PROCEDURES No [...]
--- OUTSIDE RECORDS SUMMARY | 2018-08-28 09:54 | XMS REPORT ---
Author Author MARIA INES LEAL Organization [facility] Address [address] [place] [address] Care Team Providers Care Product Evangelist Name Role Phone MARIA INES LEAL Unavailable PROBLEMS Type Condition ICD9-CM Code RCU38-IP Code Onset Dates Condition Status SNOMED Code Problem Major depressive disorder, single episode, moderate F32.1 Active 827451009 Problem Arthritis M19.90 Active 4550573 Problem Acquired hypothyroidism E03.9 Active 097466971 Problem Other chronic pain G89.29 Active 23517678 Problem Lumbago with sciatica, right side M54.41 Active 910430250595274 Problem Depression F32.9 Active 43063082 Problem Other chronic pain G89.29 Active 06809656 Problem Lumbago with sciatica, left side M54.42 Active 473915130 Problem Primary insomnia F51.01 Active 3127988 ALLERGIES No Information ENCOUNTERS Encounter Location Date Diagnosis [place] [address] [address] May, [place] [address] [address]703 Apr, Insomnia, unspecified type G47.00 [place] [address] 0[address]36- [address]11 Mar, Insomnia, unspecified type G47.00 [place] [address] 51662- 9080 Mar, Insomnia, unspecified type G47.00 [place] [address] 85721- 8389 Feb, Insomnia, unspecified type G47.00 [place] [address] 17531- 8[address] January, Acute non-recurrent maxillary sinusitis J01.00 and Depression F32.9 [facility] [address] [place] [id number] [place] [address]306 -4417 January, Seasonal allergic rhinitis, unspecified trigger J30.2 [place] [address] 51614- 1797 January, Insomnia, unspecified type G47.00 [place] [address] 83843- 4049 Dec, Insomnia, unspecified type G47.00 [place] [address] 01640- 1543 Dec, Other chronic pain G89.29 [place] [address] 47220- 2592 Nov, Other chronic pain G89.29 ; Arthritis M19.90 ; Acquired hypothyroidism E03.9 ; Lumbago with sciatica, left side M54.42 ; Lumbago with sciatica, right side M54.41 and Major depressive disorder, single episode, moderate F32.1 [place] [address] 13232- 8532 Nov, Insomnia, unspecified type G47.00 [facility] [address] [place] [id number] [place] [address]73 -4068 Nov, Acute cystitis with hematuria N30.01 [place] [address] [place] [id number] [place] [address] 64916- 3346 Oct, Insomnia, unspecified type G47.00 [place] [address] [place] [id number] [place] [address] 55764- 0081 Sep, Insomnia, unspecified type G47.00 [place] [address] [place] [id number] [place] [address] 71938- 8232 Aug, Insomnia, unspecified type G47.00 [place] [address] [place] [address] Jul, Insomnia, unspecified type G47.00 [place] [address] 35971- 3799 Jul, [facility] [address] [place] [id number] [place] [address] 06971 -6832 Jul, Dysuria R30.0 and Acute cystitis with hematuria N30.01 [place] [address] 52634- 7806 Jun, Insomnia, unspecified type G47.00 [place] [address] 76409- 9057 Jun, Encounter for immunization Z23 [place] [address] 32477- 0850 May, [place] [address] 26367- 7702 May, Insomnia, unspecified type G47.00 ; Lumbago with sciatica, left side M54.42 ; Lumbago with sciatica, right side M54.41 and Other chronic pain G89.29 [facility] [address] [place] [id number] [place] [address] 75990 -4251 May, Acute non-recurrent maxillary sinusitis J01.00 [place] [address] [place] [id number] [place] [address] 06632- 1673 Apr, Other chronic pain G89.29 [place] [address] [place] [id number] [place] [address] 41508- 8729 Apr, Primary insomnia F51.01 and Pain in right leg M79.604 [place] [address] [place] [id number] [place] [address] 12707- 0923 Mar, Other chronic pain G89.29 [place] [address] [place] [id number] [place] [address] 16536- 6680 Feb, Other chronic pain G89.29 [facility] [address] [address] Feb, Depression F32.9 and Insomnia, unspecified type G47.00 [facility] [address] [place] [id number] [place] [address] 90265- 0486 Feb, Other chronic pain G89.29 [facility] [address] [place] [id number] [place] [address] 77914- 9836 January, Arthritis M19.90 [facility] [address] [id number] [place] [address] 19466 2546 January, [facility] [address] [place] [id number] [place] [address] 88714- 0696 January, Other chronic pain G89.29 [facility] [address] [place] [id number] [place] [address] 30297- 4151 Dec, Other chronic pain G89.29 [facility] [address] [place] [id number] [place] [address] 96408- 1217 Nov, Depression F32.9 [facility] [address] [place] [id number] [place] [address] 07470- 6086 Nov, Other chronic pain G89.29 [facility] [address] [place] [id number] [place] [address] 00196- 7628 Oct, Arthritis M19.90 [facility] [address] [place] [id number] [place] [address] 22680- 0866 Aug, [facility] [address] [place] [id number] [place] [address] 87093- 6993 Aug, [facility] [address] [place] [id number] [place] [address] 02643 2546 Jul, Acquired hypothyroidism E03.9 [facility] [address] [place] [id number] [place] [address] 85933 2546 Jul, [facility] [address] [place] [id number] [place] [address] 61055- 7398 Jul, [facility] [address] [address] 7718 Jul, [facility] [address] [place] [id number] [place] [address] 94125- 8232 Jun, [facility] [address] [place] [id number] [place] [address] 78102- 7317 Jun, Encounter for immunization Z23 [facility] [address] [place] [id number] [place] [address] 77486- 1829 30 May, 2016 [facility] [address] [place] [id number] [place] [address] 36687- 8477 May, [facility] [address] [address] May, Acute non-recurrent maxillary sinusitis J01.00 and Bilateral acute serous otitis media, recurrence not specified H65.03 [facility] [address] [place] [id number] [place] [address] 02698- 7530 16 May, 2016 Rheumatoid arthritis 714.0 and Osteoarthritis, unspecified osteoarthritis type, unspecified site M19.90 [place] [address] [place] [address] 59509- 3579 May, [facility] [address] [address]- 5542 Apr, [facility] [address] [place] [id number] [place] [address] 99428- 2121 Apr, OAB (overactive bladder) N32.81 ; Encounter for well woman exam with routine gynecological exam Z01.419 and Encounter for screening mammogram for breast cancer Z12.31 [facility] [address] [address]- 2561 05 Apr, 2016 [facility] [address] [address]- 4333 Mar, [facility] [address] [id number] [address]- 0735 30 Feb, 2016 Acquired hypothyroidism E03.9 [facility] [address] [place] [id number] [place] [address] 04217- 6851 Feb, [facility] [address] [place] [id number] [place] [address] 81944- 9137 January, [facility] [address] [place] [id number] [place] [address] 73468- 3166 January, [facility] [address] [place] [id number] [place] [address] 42989- 5733 Dec, [facility] [address] [place] [id number] [place] [address] 40666- 9435 Nov, [facility] [address] [place] [id number] [place] [address] 87958- 7373 Oct, [facility] [address] [place] [id number] [place] [address] 32090- 5947 Sep, Acquired hypothyroidism E03.9 [facility] [address] [place] [address] 01527- 7930 Aug, Acquired hypothyroidism E03.9 ; Hiatal hernia K44.9 and Lumbar neuritis M54.16 [facility] [address] [place] [id number] [address]- 4486 Jul, [facility] [address] [place] [address] 47955- 1316 Jul, Major depressive disorder, single episode, moderate F32.1 [facility] [address] [place] [address] 00362- 8065 Jul, Acquired hypothyroidism E03.9 [facility] [address] [place] [address] 72140- 1639 Jun, Major depressive disorder, single episode, moderate F32.1 [facility] [address] [place] [address] 04774- 5942 Jun, [facility] [address] [place] [id number] [place] [address] 69129- 4820 Jun, Depression F32.9 ; Irritable bowel syndrome with diarrhea K58.0 and Other chronic pain G89.29 [facility] [address] [place] [id number] [place] [address] 65050- 7080 Jun, Family history of pinworm infection Z83.1 [facility] [address] 67341- 8381 Jun, Acquired hypothyroidism E03.9 [facility] [address] 85409- 5611 Jun, Unspecified hypothyroidism 244.9 [facility] [address] [place] [id number] [place] [address] 79258- 7081 Jun, [facility] [address] 30299- 1067 May, Unspecified hypothyroidism 244.9 [facility] [address] [place] [id number] [place] [address] 73010- 6848 May, [facility] [address] [place] [id number] [place] [address] 17994- 0075 Apr, [facility] [address] [place] [id number] [place] [address] 13501- 0950 Mar, [facility] [address] [place] [id number] [place] [address] 52878- 2548 Feb, Paronychia 681.9 and Hypothyroidism 244.9 [facility] [address] [place] [id number] [place] [address] 15402- 0545 January, [facility] [address] 32966- 5472 14 Dec, 2014 [facility] [address] [place] [id number] [place] [address] 73961- 1045 Dec, [facility] [address] 89252- 2761 Nov, [facility] [place] [facility] [address] [id number] [place] [address]- 7414 Nov, [facility] [place] [facility] [address] [id number] [place] [address]- 3048 Nov, [facility] [place] [facility] [address] [id number] [place] [address]- 1928 Nov, [facility] [place] [facility] [address] [id number] [place] [address]- 9512 Oct, [facility] [place] [facility] [address] [id number] [place] [address]- 3993 Oct, [facility] [place] [facility] [address] [facility] [id number] [place] [address]- 9949 Oct, [facility] [place] [facility] [address] [id number] [place] [address]- 7894 Oct, [facility] [place] [facility] [address] [id number] [place] [address]- 2234 Sep, [facility] [place] [facility] [address] [id number] [place] [address]- 2559 Sep, [facility] [place] [facility] [address] [facility] [id number] [place] [address]- 8090 Sep, [facility] [place] [facility] [address] [facility] [id number] [place] [address]- 9060 Sep, [facility] [place] [facility] [address] [id number] [place] [address]- 9055 Aug, [facility] [place] [facility] [address] [id number] [place] [address]- 7777 Aug, [facility] [place] [facility] [address] [facility] [id number] [place] [address]- 2040 Jul, [facility] [place] [facility] [address] [id number] [place] 1484 Jul, [facility] [place] [facility] [address] [id number] [place] [address]- 4686 Jun, [facility] [place] [facility] [address] [id number] [place] [address]- 6593 Jun, [facility] [place] [facility] [address] [id number] [place] [address]- 2083 May, [facility] [place] [facility] [address] [id number] [place] [address]- 7445 May, [facility] [place] [facility] [address] [id number] [place] [address]- 4513 May, [facility] [place] [facility] [address] [id number] [place] [address]- 8547 24 May, 2014 [facility] [place] [facility] [address] [id number] [place] [address]- 6202 16 May, 2014 [facility] [place] [facility] [address] [id number] [place] [address]- 3672 16 May, 2014 [facility] [place] [facility] [address] [id number] [place] [address]- 8653 15 May, 2014 [facility] [place] [facility] [address] [id number] [place] [address]- 9795 15 May, 2014 [facility] [place] [facility] [address] [id number] [place] [address]- 8351 May, [facility] [place] [facility] [address] [id number] [place] [address]- 2545 May, [facility] [place] [facility] [address] [id number] [place] [address]- 3859 Apr, [facility] [place] [facility] [address] [id number] [place] [address]- 0467 Apr, [facility] [place] [facility] [address] [id number] [place] [address]- 7262 Apr, [facility] [place] [facility] [address] [id number] [place] [address]- 6384 Apr, [facility] [address] [facility] [id number] [place] [address]- 1307 Apr, [facility] [address] [facility] [id number] [place] [address]- 1766 Apr, IMMUNIZATIONS No Known Immunizations SOCIAL HISTORY [...]
--- OUTSIDE RECORDS SUMMARY | 2018-08-28 09:54 | XMS REPORT ---
Author Author MARIA INES LEAL Organization [facility] Address [address] [place] [address] Care Team Providers Care Physician Allergist Immunologist Name Role Phone MARIA INES LEAL Unavailable PROBLEMS Type Condition ICD9-CM Code NHU93-AG Code Onset Dates Condition Status SNOMED Code Problem Major depressive disorder, single episode, moderate F32.1 Active 626820259 Problem Arthritis M19.90 Active 3311369 Problem Acquired hypothyroidism E03.9 Active 079791500 Problem Other chronic pain G89.29 Active 75060873 Problem Lumbago with sciatica, right side M54.41 Active 709853769998171 Problem Depression F32.9 Active 93382330 Problem Other chronic pain G89.29 Active 12138192 Problem Lumbago with sciatica, left side M54.42 Active 976698479 Problem Primary insomnia F51.01 Active 5826983 ALLERGIES No Information ENCOUNTERS Encounter Location Date Diagnosis [facility] [id number] [place] [address] 42923- 4414 Mar, Insomnia, unspecified type G47.00 [facility] [id number] [place] [address] 87225- 5448 Mar, Insomnia, unspecified type G47.00 [facility] [id number] [place] [address] 58197- 2073 Feb, Insomnia, unspecified type G47.00 [facility] [id number] [place] [address] 68292- 7026 January, Acute non-recurrent maxillary sinusitis J01.00 and Depression F32.9 [facility] [id number] [place] [address] 78906 -0068 January, Seasonal allergic rhinitis, unspecified trigger J30.2 [facility] [id number] [place] [address] 37070- 8634 January, Insomnia, unspecified type G47.00 [place] [id number] [place] [address] 71643- 1905 Dec, Insomnia, unspecified type G47.00 [place] [id number] [place] [address] 43861- 4543 Dec, Other chronic pain G89.29 [place] [address] 99860- 9730 Nov, Other chronic pain G89.29 ; Arthritis M19.90 ; Acquired hypothyroidism E03.9 ; Lumbago with sciatica, left side M54.42 ; Lumbago with sciatica, right side M54.41 and Major depressive disorder, single episode, moderate F32.1 [place] [address] 12791- 0784 Nov, Insomnia, unspecified type G47.00 [facility] [id number] [place] [address] 82711 -2635 Nov, Acute cystitis with hematuria N30.01 [place] [id number] [place] [address] 51716- 4425 Oct, Insomnia, unspecified type G47.00 [place] [id number] [place] [address] 29176- 3330 Sep, Insomnia, unspecified type G47.00 [place] [id number] [place] [address] 89097- 9244 Aug, Insomnia, unspecified type G47.00 [place] [id number] [place] [address] 75874- 5870 Jul, Insomnia, unspecified type G47.00 [place] [id number] [place] [address] 41056- 8179 Jul, [facility] [address] 12530 -3314 Jul, Dysuria R30.0 and Acute cystitis with hematuria N30.01 [place] [address] 49368- 6425 Jun, Insomnia, unspecified type G47.00 [place] [address] 57911- 6178 Jun, Encounter for immunization Z23 [place] [address] 64634- 5811 May, [place] [address] 18114- 0682 May, Insomnia, unspecified type G47.00 ; Lumbago with sciatica, left side M54.42 ; Lumbago with sciatica, right side M54.41 and Other chronic pain G89.29 [facility] [address] 25341 -7740 May, Acute non-recurrent maxillary sinusitis J01.00 [place] [address] 10052- 5543 Apr, Other chronic pain G89.29 [place] [address] 73837- 6308 Apr, Primary insomnia F51.01 and Pain in right leg M79.604 [place] [address] 67209- 4986 Mar, Other chronic pain G89.29 [place] [address] 19023- 6721 Feb, Other chronic pain G89.29 [facility] [address] 32204- 6801 Feb, Depression F32.9 and Insomnia, unspecified type G47.00 [place] [address] 06922- 3126 Feb, Other chronic pain G89.29 [facility] [address] [facility] [id number] [place] [address] 8916 January, Arthritis M19.90 [facility] [address] [facility] [id number] [place] [address] 2546 January, [facility] [address] [facility] [id number] [address] 2546 January, Other chronic pain G89.29 [facility] [address] [facility] [id number] [place] [address] 2546 Dec, Other chronic pain G89.29 [facility] [address] [facility] [id number] [place] [address], [place] [address] 2546 Nov, Depression F32.9 [facility] [address] [id number] [address] 2546 Nov, Other chronic pain G89.29 [facility] [id number] [place] [address]- 0126 Oct, Arthritis M19.90 [facility] [id number] [place] [address]- 1856 Aug, [facility] [address] [id number] [address] 2546 Aug, [facility] [id number] [address] 2546 Jul, Acquired hypothyroidism E03.9 [facility] [address] [facility] [id number] [address] 2546 Jul, [facility] [address] [address] 2546 Jul, [facility] [address] [id number] [address] 2546 Jul, [facility] [address] [address]- 4806 Jun, [facility] [id number] [place] [address] 06173- 5132 Jun, Encounter for immunization Z23 [facility] [id number] [place] [address] 75475- 4584 30 May, 2016 [facility] [id number] [place] [address] 07775- 4208 May, [facility] [id number] [place] [address] 20441 -0014 May, Acute non-recurrent maxillary sinusitis J01.00 and Bilateral acute serous otitis media, recurrence not specified H65.03 [facility] [id number] [place] [address] 98995- 8734 16 May, 2016 Rheumatoid arthritis 714.0 and Osteoarthritis, unspecified osteoarthritis type, unspecified site M19.90 [facility] [id number] [place] [address] 56229- 0389 May, [facility] [id number] [place] [address] 80124- 8034 Apr, [facility] [id number] [place] [address] 86101- 1736 Apr, OAB (overactive bladder) N32.81 ; Encounter for well woman exam with routine gynecological exam Z01.419 and Encounter for screening mammogram for breast cancer Z12.31 [place] [id number] [place] [address] 19743- 6424 05 Apr, 2016 [facility] [id number] [place] [address] 21514- 2566 Mar, [facility] [id number] [place] [address] 86440- 9151 Feb, Acquired hypothyroidism E03.9 [facility] [id number] [place] [address] 53176- 5851 Feb, [place] [address] [place] [address]- 2937 January, [facility] [id number] [place] [address] 58094- 1783 January, [facility] [id number] [place] [address] 06891- 3571 Dec, [facility] [id number] [place] [address] 42343- 8546 Nov, [facility] [id number] [place] [address] 78477- 5312 Oct, [facility] [address] 81750- 2391 Sep, Acquired hypothyroidism E03.9 [facility] [address] 98476- 3312 Aug, Acquired hypothyroidism E03.9 ; Hiatal hernia K44.9 and Lumbar neuritis M54.16 [facility] [id number] [place] [address] 82497- 6769 Jul, [facility] [address] 61004- 5043 Jul, Major depressive disorder, single episode, moderate F32.1 [facility] [id number] [place] [address] 72932- 5393 Jul, Acquired hypothyroidism E03.9 [facility] [id number] [place] [address] 85465- 7407 Jun, Major depressive disorder, single episode, moderate F32.1 [facility] [id number] [place] [address] 05533- 5214 Jun, [facility] [address] 24487- 6856 Jun, Depression F32.9 ; Irritable bowel syndrome with diarrhea K58.0 and Other chronic pain G89.29 [facility] [address] [place] [address]- 4738 Jun, Family history of pinworm infection Z83.1 [facility] [id number] [place] [address] 64463- 5025 Jun, Acquired hypothyroidism E03.9 [facility] [id number] [place] [address] 58287- 3865 Jun, Unspecified hypothyroidism 244.9 [facility] [address] 24235- 4493 Jun, [facility] [id number] [place] [address] 06956- 7657 May, Unspecified hypothyroidism 244.9 [facility] [id number] [place] [address] 65672- 2776 May, [facility] [address] 84454- 9772 Apr, [facility] [address] 56268- 6673 Mar, [facility] [id number] [place] [address] 96340- 2570 Feb, Paronychia 681.9 and Hypothyroidism 244.9 [facility] [id number] [place] [address] 40630- 5568 January, [facility] [id number] [place] [address] 81943- 3551 14 Dec, 2014 [facility] [id number] [place] [address] 58289- 5439 Dec, [facility] [address] 642155- 8311 Nov, [facility] [id number] [place] [address] 596883- 5758 Nov, [facility] [id number] [place] [address] [id number]- 0877 Nov, [facility] [place] [facility] [address] [id number] [place] 2264 Nov, [facility] [place] [facility] [address] [id number] [place] [address]- 2268 Oct, [facility] [place] [facility] [address] [id number] [place] [address]- 4899 Oct, [facility] [place] [facility] [address] [id number] [place] [address]- 5272 Oct, [facility] [place] [facility] [address] [id number] [place] [address]- 0615 Oct, [facility] [place] [facility] [address] [id number] [place] [address]- 4830 Sep, [facility] [place] [facility] [address] [id number] [place] [address]- 0323 Sep, [facility] [place] [facility] [address] [id number] [place] [address]- 2712 Sep, [facility] [place] [facility] [address] [id number] [place] [address]- 3789 Sep, [facility] [place] [facility] [address] [id number] [place] [address]- 2150 Aug, [facility] [place] [facility] [address] [id number] [place] [address]- 3692 Aug, [facility] [place] [facility] [address] [id number] [place] [address]- 6155 Jul, [facility] [place] [facility] [address] [id number] [place] [address]- 9523 Jul, [facility] [place] [facility] [address] [facility] [id number] [place] [address]- 4966 Jun, [facility] [place] [facility] [address] [id number] [place] [address]- 8784 Jun, [facility] [place] [facility] [address] [id number] [place] [address]- 5035 25 May, 2013 [facility] [address] [id number] [place] [address] 2546 25 May, 2013 [facility] [address] [id number] [place] [address] 2546 24 May, 2013 [facility] [address] [id number] [place] [address] 2546 24 May, 2013 [facility] [address] [id number] [place] [address] 2546 16 May, 2013 [facility] [address] [id number] [place] [address]- 1353 16 May, 2013 [facility] [address] [id number] [place] [address]- 7272 15 May, 2014 [facility] [address] [id number] [place] [address]- 2203 15 May, 2013 [facility] [address] [id number] [place] [address]- 1662 02 May, 2014 [facility] [address] [id number] [place] [address]- 0400 02 May, 2014 [facility] [address] [id number] [place] [address]- 2229 Apr, [facility] [place] [facility] [address] [id number] [place] [address]- 2547 Apr, [facility] [address] [id number] [place] [address]- 254 Apr, [facility] [place] [facility] [address] [id number] [place] [address]- 7462 Apr, [facility] [address] [id number] [place] [address]- 9641 Apr, [facility] [address] [id number] [place] [address]- 4362 Apr, IMMUNIZATIONS No Known Immunizations SOCIAL HISTORY Never Assessed REASON FOR VISIT Controlled Med Refill 02/14/18 PLAN OF CARE VITAL SIGNS MEDICATIONS Medication [...]
--- OUTSIDE RECORDS SUMMARY | 2018-08-28 09:54 | XMS REPORT ---
Author Author MARIA INES LEAL Organization [facility] Address [address] [place] [address] Care Team Providers Care Hand Loom Weaver Name Role Phone MARIA INES LEAL Unavailable PROBLEMS Type Condition ICD9-CM Code [id number] Code Onset Dates Condition Status SNOMED Code Problem Major depressive disorder, single episode, moderate F32.1 Active 243494104 Problem Arthritis M19.90 Active 0909289 Problem Acquired hypothyroidism E03.9 Active 317496045 Problem Other chronic pain G89.29 Active 51039191 Problem Lumbago with sciatica, right side M54.41 Active 600372424685794 Problem Depression F32.9 Active 61164625 Problem Other chronic pain G89.29 Active 70465918 Problem Lumbago with sciatica, left side M54.42 Active 171328284 Problem Primary insomnia F51.01 Active 8127343 ALLERGIES No Information ENCOUNTERS Encounter Location Date Diagnosis [place] [address] [address] May, [place] [address] [address]- [address] Apr, Insomnia, unspecified type G47.00 [place] [address] [address]- 4784 Mar, Insomnia, unspecified type G47.00 [place] [address] [address]- 5506 Mar, Insomnia, unspecified type G47.00 [place] [address] [address]- 28[address] Feb, Insomnia, unspecified type G47.00 [place] [address] [address]- 8041 January, Acute non-recurrent maxillary sinusitis J01.00 and Depression F32.9 [facility] [address] [place] [id number] [place] [address]26 January, Seasonal allergic rhinitis, unspecified trigger J30.2 [place] [address] 8[address]35- 0174 January, Insomnia, unspecified type G47.00 [place] [address] 17347- 2339 Dec, Insomnia, unspecified type G47.00 [place] [address] 81073- 1427 Dec, Other chronic pain G89.29 [place] [address] 58[address]- 3096 Nov, Other chronic pain G89.29 ; Arthritis M19.90 ; Acquired hypothyroidism E03.9 ; Lumbago with sciatica, left side M54.42 ; Lumbago with sciatica, right side M54.41 and Major depressive disorder, single episode, moderate F32.1 [place] [address] [address]- 6407 Nov, Insomnia, unspecified type G47.00 [facility] [address] [id number] [place] [address]46 -3893 Nov, Acute cystitis with hematuria N30.01 [place] [address] [place] [id number] [place] [address] 49812- 7403 Oct, Insomnia, unspecified type G47.00 [place] [address] [place] [id number] [place] [address] 72390- 8976 Sep, Insomnia, unspecified type G47.00 [place] [address] [place] [id number] [place] [address] 30511- 9943 Aug, Insomnia, unspecified type G47.00 [place] [address] [place] [address] 2004 Jul, Insomnia, unspecified type G47.00 [place] [address] 39574- 6608 Jul, [facility] [address] [id number] [place] [address] 23648 -7753 Jul, Dysuria R30.0 and Acute cystitis with hematuria N30.01 [place] [address] 85567- 2469 Jun, Insomnia, unspecified type G47.00 [place] [address] 50494- 8830 Jun, Encounter for immunization Z23 [place] [address] 62809- 9495 May, [place] [address] 76754- 6943 May, Insomnia, unspecified type G47.00 ; Lumbago with sciatica, left side M54.42 ; Lumbago with sciatica, right side M54.41 and Other chronic pain G89.29 [facility] [address] [id number] [place] [address]381 -8954 May, Acute non-recurrent maxillary sinusitis J01.00 [place] [address] [place] [id number] [place] [address] 25835- 3445 Apr, Other chronic pain G89.29 [place] [address] [place] [id number] [place] [address] 54528- 5050 Apr, Primary insomnia F51.01 and Pain in right leg M79.604 [place] [address] [place] [id number] [place] [address] 38146- 5261 Mar, Other chronic pain G89.29 [place] [address] [place] [id number] [place] [address] 72528- 2710 Feb, Other chronic pain G89.29 [facility] [address] [address] Feb, Depression F32.9 and Insomnia, unspecified type G47.00 [facility] [address] [place] [id number] [place] [address] 45717- 9116 Feb, Other chronic pain G89.29 [facility] [address] [place] [id number] [place] [address] 09644- 4986 January, Arthritis M19.90 [facility] [address] [place] [id number] [place] [address] 36560 2546 January, [facility] [address] [place] [id number] [place] [address] 12958- 9796 January, Other chronic pain G89.29 [facility] [address] [place] [id number] [place] [address] 26497- 8859 Dec, Other chronic pain G89.29 [facility] [address] [place] [id number] [place] [address] 52317- 4104 Nov, Depression F32.9 [facility] [address] [place] [id number] [place] [address] 14728- 7256 Nov, Other chronic pain G89.29 [facility] [address] [place] [id number] [place] [address] 54747- 9696 Oct, Arthritis M19.90 [facility] [address] [place] [id number] [place] [address] 01641- 6596 Aug, [facility] [address] [place] [id number] [place] [address] 76568- 1870 Aug, [facility] [address] [place] [id number] [place] [address] 91713 2546 Jul, Acquired hypothyroidism E03.9 [facility] [address] [place] [id number] [place] [address] 88633 2546 Jul, [facility] [address] [place] [id number] [place] [address] 90577- 7007 Jul, [facility] [address] [address] 9141 Jul, [facility] [address] [place] [id number] [place] [address] 93813- 0484 Jun, [facility] [address] [place] [id number] [place] [address] 88238- 8687 Jun, Encounter for immunization Z23 [facility] [address] [place] [id number] [place] [address] 86267- 9914 30 May, 2016 [facility] [address] [place] [id number] [place] [address] 70046- 5986 May, [facility] [address] [address] May, Acute non-recurrent maxillary sinusitis J01.00 and Bilateral acute serous otitis media, recurrence not specified H65.03 [facility] [address] [place] [id number] [place] [address] 08955- 3738 16 May, 2016 Rheumatoid arthritis 714.0 and Osteoarthritis, unspecified osteoarthritis type, unspecified site M19.90 [place] [address] [place] [address] 81947- 1309 May, [facility] [address] [address]- 7106 Apr, [facility] [address] [place] [id number] [place] [address] 03541- 0322 Apr, OAB (overactive bladder) N32.81 ; Encounter for well woman exam with routine gynecological exam Z01.419 and Encounter for screening mammogram for breast cancer Z12.31 [facility] [address] [address]- 3397 05 Apr, 2016 [facility] [address] [address]- 9975 Mar, [facility] [address] [id number] [address]- 3060 30 Feb, 2016 Acquired hypothyroidism E03.9 [facility] [address] [place] [id number] [place] [address] 65417- 4018 Feb, [facility] [address] [place] [id number] [place] [address] 08673- 7983 January, [facility] [address] [place] [id number] [place] [address] 99808- 4237 January, [facility] [address] [place] [id number] [place] [address] 81913- 2731 Dec, [facility] [address] [place] [id number] [place] [address] 79155- 3628 Nov, [facility] [address] [place] [id number] [place] [address] 49323- 7217 Oct, [facility] [address] [place] [id number] [place] [address] 55804- 6734 Sep, Acquired hypothyroidism E03.9 [facility] [address] [place] [address] 34931- 5343 Aug, Acquired hypothyroidism E03.9 ; Hiatal hernia K44.9 and Lumbar neuritis M54.16 [facility] [address] [place] [id number] [address]- 2607 Jul, [facility] [address] [place] [address] 68913- 4070 Jul, Major depressive disorder, single episode, moderate F32.1 [facility] [address] [place] [address] 22446- 7068 Jul, Acquired hypothyroidism E03.9 [facility] [address] [place] [address] 24748- 1060 Jun, Major depressive disorder, single episode, moderate F32.1 [facility] [address] [place] [address] 55650- 8740 Jun, [facility] [address] [place] [id number] [place] [address] 50250- 1028 Jun, Depression F32.9 ; Irritable bowel syndrome with diarrhea K58.0 and Other chronic pain G89.29 [facility] [address] [place] [id number] [place] [address] 70670- 3425 Jun, Family history of pinworm infection Z83.1 [facility] [address] 39600- 8090 Jun, Acquired hypothyroidism E03.9 [facility] [address] 46628- 4473 Jun, Unspecified hypothyroidism 244.9 [facility] [address] [place] [id number] [place] [address] 62774- 4444 Jun, [facility] [address] 69732- 7235 May, Unspecified hypothyroidism 244.9 [facility] [address] [place] [id number] [place] [address] 91872- 3935 May, [facility] [address] [place] [id number] [place] [address] 11928- 3523 Apr, [facility] [address] [place] [id number] [place] [address] 44310- 4341 Mar, [facility] [address] [place] [id number] [place] [address] 13226- 0917 Feb, Paronychia 681.9 and Hypothyroidism 244.9 [facility] [address] [place] [id number] [place] [address] 38005- 5413 January, [facility] [address] 69921- 1522 14 Dec, 2014 [facility] [address] [place] [id number] [place] [address] 63878- 2338 Dec, [facility] [address] 94145- 0797 Nov, [facility] [place] [facility] [address] [id number] [place] [address]- 0665 Nov, [facility] [place] [facility] [address] [id number] [place] [address]- 7466 Nov, [facility] [place] [facility] [address] [id number] [place] [address]- 6910 Nov, [facility] [place] [facility] [address] [id number] [place] [address]- 6339 Oct, [facility] [place] [facility] [address] [id number] [place] [address]- 8724 Oct, [facility] [place] [facility] [address] [facility] [id number] [place] [address]- 8525 Oct, [facility] [place] [facility] [address] [id number] [place] [address]- 6614 Oct, [facility] [place] [facility] [address] [id number] [place] [address]- 2564 Sep, [facility] [place] [facility] [address] [id number] [place] [address]- 5486 Sep, [facility] [place] [facility] [address] [facility] [id number] [place] [address]- 6039 Sep, [facility] [place] [facility] [address] [facility] [id number] [place] [address]- 6970 Sep, [facility] [place] [facility] [address] [id number] [place] [address]- 6561 Aug, [facility] [place] [facility] [address] [id number] [place] [address]- 1408 Aug, [facility] [place] [facility] [address] [facility] [id number] [place] [address]- 6139 Jul, [facility] [place] [facility] [address] [id number] [place] [address] Jul, [facility] [place] [facility] [address] [id number] [place] [address]- 9893 Jun, [facility] [place] [facility] [address] [id number] [place] [address]- 5220 Jun, [facility] [place] [facility] [address] [id number] [place] [address]- 2276 May, [facility] [place] [facility] [address] [id number] [place] [address]- 2198 May, [facility] [place] [facility] [address] [id number] [place] [address]- 6987 May, [facility] [place] [facility] [address] [id number] [place] [address]- 8234 24 May, 2014 [facility] [place] [facility] [address] [id number] [place] [address]- 6884 16 May, 2014 [facility] [place] [facility] [address] [id number] [place] [address]- 8764 16 May, 2014 [facility] [place] [facility] [address] [id number] [place] [address]- 7770 15 May, 2014 [facility] [place] [facility] [address] [id number] [place] [address]- 8289 15 May, 2014 [facility] [place] [facility] [address] [id number] [place] [address]- 0742 May, [facility] [place] [facility] [address] [id number] [place] [address]- 2543 May, [facility] [place] [facility] [address] [id number] [place] [address]- 8298 Apr, [facility] [place] [facility] [address] [id number] [place] [address]- 6131 Apr, [facility] [place] [facility] [address] [id number] [place] [address]- 4861 Apr, [facility] [place] [facility] [address] [id number] [place] [address]- 6259 Apr, [facility] [address] [facility] [id number] [place] [address]- 8096 Apr, [facility] [address] [facility] [id number] [place] [address]- 9666 Apr, IMMUNIZATIONS No Known Immunizations SOCIAL HISTORY [...]
--- OUTSIDE RECORDS SUMMARY | 2018-08-28 09:55 | XMS REPORT ---
Author Author MARIA INES LEAL Organization [facility] Address [address] [place] [address] Care Team Providers Care Brake Lining [employer]isher [employer] Name Role Phone MARIA INES LEAL Unavailable PROBLEMS Type Condition ICD9-CM Code LBF81-KE Code Onset Dates Condition Status SNOMED Code Problem Major depressive disorder, single episode, moderate F32.1 Active 857233918 Problem Arthritis M19.90 Active 4545566 Problem Acquired hypothyroidism E03.9 Active 910645513 Problem Other chronic pain G89.29 Active 27492261 Problem Lumbago with sciatica, right side M54.41 Active 292818288354165 Problem Depression F32.9 Active 58655307 Problem Other chronic pain G89.29 Active 02973863 Problem Lumbago with sciatica, left side M54.42 Active 766007356 Problem Primary insomnia F51.01 Active 1440799 ALLERGIES No Known Allergies ENCOUNTERS Encounter Location Date Diagnosis [facility] [address] [address] Mar, Insomnia, unspecified type G47.00 [facility] [id number] [place] [address] 66509- 6214 Mar, Insomnia, unspecified type G47.00 [facility] [id number] [place] [address] 58534- 6515 Feb, Insomnia, unspecified type G47.00 [facility] [address] [address]- [address] January, Acute non-recurrent maxillary sinusitis J01.00 and Depression F32.9 [facility] [id number] [place] [address] 47222 -6293 January, Seasonal allergic rhinitis, unspecified trigger J30.2 [facility] [id number] [place] [address] 08814- 8072 January, Insomnia, unspecified type G47.00 [place] [id number] [place] [address] 62715- 7382 Dec, Insomnia, unspecified type G47.00 [place] [id number] [place] [address] 90419- 0301 Dec, Other chronic pain G89.29 [place] [address] [address]- 5307 Nov, Other chronic pain G89.29 ; Arthritis M19.90 ; Acquired hypothyroidism E03.9 ; Lumbago with sciatica, left side M54.42 ; Lumbago with sciatica, right side M54.41 and Major depressive disorder, single episode, moderate F32.1 [place] [address] [address]- [address] Nov, Insomnia, unspecified type G47.00 [facility] [id number] [place] [address] 90002 -5656 Nov, Acute cystitis with hematuria N30.01 [place] [id number] [place] [address] 30979- 7172 Oct, Insomnia, unspecified type G47.00 [place] [id number] [place] [address] 95807- 3728 Sep, Insomnia, unspecified type G47.00 [place] [id number] [place] [address] 39201- 0388 Aug, Insomnia, unspecified type G47.00 [place] [id number] [place] [address] 56612- 8713 Jul, Insomnia, unspecified type G47.00 [place] [id number] [place] [address] 15355- 3829 Jul, [facility] [address] [place] [address] Jul, Dysuria R30.0 and Acute cystitis with hematuria N30.01 [facility] [address] 83004- 1164 Jun, Insomnia, unspecified type G47.00 [facility] [address] [address]16- [address]3 Jun, Encounter for immunization Z23 [place] [address] [address]- 6316 May, [place] [address] 6[address]22- 6437 May, Insomnia, unspecified type G47.00 ; Lumbago with sciatica, left side M54.42 ; Lumbago with sciatica, right side M54.41 and Other chronic pain G89.29 [facility] [id number] [place] [address] 52527 -5814 May, Acute non-recurrent maxillary sinusitis J01.00 [place] [address] 49783- 1361 Apr, Other chronic pain G89.29 [place] [address] 87969- 8524 Apr, Primary insomnia F51.01 and Pain in right leg M79.604 [place] [id number] [place] [address] 21684- 9911 Mar, Other chronic pain G89.29 [facility] [id number] [place] [address] 70377- 8041 Feb, Other chronic pain G89.29 [facility] [address] [address]23- 2674 Feb, Depression F32.9 and Insomnia, unspecified type G47.00 [place] [address] 93192- 5853 Feb, Other chronic pain G89.29 [facility] [address] [facility] [id number], [place] [address] January, Arthritis M19.90 [facility] [address] [facility] [id number], [place] [address] 2546 January, [facility] [address] [facility] [id number] [place] [address] 61307- 8696 January, Other chronic pain G89.29 [facility] [address] [facility] [id number], [place] [address] 2546 Dec, Other chronic pain G89.29 [facility] [address] [facility] [id number] [place] [address] 03010- 0426 Nov, Depression F32.9 [facility] [address] [id number] [address] 2546 Nov, Other chronic pain G89.29 [facility] [address] [facility] [id number], [place] [address] 2546 Oct, Arthritis M19.90 [facility] [id number] [place] [address] 86678- 8936 Aug, [facility] [address] [id number], [place] [address] 2546 Aug, [facility] [address], [place] [address] 2546 Jul, Acquired hypothyroidism E03.9 [facility] [address] [facility] [id number], [place] [address] 2546 Jul, [facility] [address] [id number], [place] [address] 2546 Jul, [facility] [address] [facility] [id number], [place] [address] 2546 Jul, [facility] [address], [place] [address]- 9[address] Jun, [facility] [id number] [place] [address] 08531- 7536 Jun, Encounter for immunization Z23 [facility] [id number] [place] [address] 19946- 3717 30 May, 2016 [facility] [id number] [place] [address] 12210- 8094 May, [facility] [id number] [place] [address] 76206 -1554 May, Acute non-recurrent maxillary sinusitis J01.00 and Bilateral acute serous otitis media, recurrence not specified H65.03 [facility] [id number] [place] [address] 13803- 6966 16 May, 2016 Rheumatoid arthritis 714.0 and Osteoarthritis, unspecified osteoarthritis type, unspecified site M19.90 [facility] [id number] [place] [address] 24689- 5827 May, [facility] [id number] [place] [address] 89076- 5437 Apr, [facility] [id number] [place] [address] 37334- 2488 Apr, OAB (overactive bladder) N32.81 ; Encounter for well woman exam with routine gynecological exam Z01.419 and Encounter for screening mammogram for breast cancer Z12.31 [place] [id number] [place] [address] 31183- 7488 05 Apr, 2016 [facility] [id number] [place] [address] 36971- 5226 Mar, [facility] [id number] [place] [address] 83781- 9447 Feb, Acquired hypothyroidism E03.9 [facility] [id number] [place] [address] 92061- 6860 Feb, [place] [address] [place] [address]- 3743 January, [facility] [id number] [place] [address] 42523- 0351 January, [facility] [id number] [place] [address] 82921- 2585 Dec, [facility] [id number] [place] [address] 12200- 8335 Nov, [facility] [id number] [place] [address] 23985- 0697 Oct, [facility] [address] 16826- 7861 Sep, Acquired hypothyroidism E03.9 [facility] [id number] [place] [address] 72468- 7507 Aug, Acquired hypothyroidism E03.9 ; Hiatal hernia K44.9 and Lumbar neuritis M54.16 [facility] [id number] [place] [address] 05359- 0371 Jul, [facility] [id number] [place] [address] 10780- 5587 Jul, Major depressive disorder, single episode, moderate F32.1 [facility] [id number] [place] [address] 28689- 6089 Jul, Acquired hypothyroidism E03.9 [facility] [id number] [place] [address] 25219- 9603 Jun, Major depressive disorder, single episode, moderate F32.1 [facility] [id number] [place] [address] 97017- 8582 Jun, [facility] [id number] [place] [address] 69160- 2912 Jun, Depression F32.9 ; Irritable bowel syndrome with diarrhea K58.0 and Other chronic pain G89.29 [facility] [address] [place] [address]- 4856 13 Jun, 2015 Family history of pinworm infection Z83.1 [facility] [id number] [place] [address] 69432- 4685 Jun, Acquired hypothyroidism E03.9 [facility] [id number] [place] [address] 54466- 4372 Jun, Unspecified hypothyroidism 244.9 [facility] [id number] [place] [address] 44533- 6160 Jun, [facility] [id number] [place] [address] 34571- 8748 16 May, 2015 Unspecified hypothyroidism 244.9 [facility] [id number] [place] [address] 539675- 2364 May, [facility] [id number] [place] [address] 61598- 8079 Apr, [facility] [id number] [place] [address] 73688- 4835 Mar, [facility] [id number] [place] [address] 88528- 5189 Feb, Paronychia 681.9 and Hypothyroidism 244.9 [facility] [id number] [place] [address] 29198- 5461 January, [facility] [id number] [place] [address] 26326- 0479 14 Dec, 2014 [facility] [id number] [place] [address] 11757- 5613 13 Dec, 2014 [facility] [id number] [place] [address] 016490- 3205 Nov, [facility] [id number] [place] [address] 415958- 5378 Nov, [facility] [id number] [place] [address] 17023- 3439 Nov, [facility] [place] [facility] [address] [id number] [place] [address]- 0150 Nov, [facility] [place] [facility] [address] [id number] [place] [address]- 5724 Oct, [facility] [place] [facility] [address] [id number] [place] [address]- 6049 Oct, [facility] [place] [facility] [address] [id number] [place] [address]- 0143 Oct, [facility] [place] [facility] [address] [id number] [place] [address]- 8884 Oct, [facility] [place] [facility] [address] [id number] [place] [address]- 4111 Sep, [facility] [place] [facility] [address] [id number] [place] [address]- 5125 Sep, [facility] [place] [facility] [address] [id number] [place] [address]- 9303 Sep, [facility] [place] [facility] [address] [id number] [place] [address]- 4038 Sep, [facility] [place] [facility] [address] [id number] [place] [address]- 7765 Aug, [facility] [place] [facility] [address] [id number] [place] [address]- 5640 Aug, [facility] [place] [facility] [address] [id number] [place] [address]- 9504 Jul, [facility] [place] [facility] [address] [id number] [place] [address]- 4359 Jul, [facility] [place] [facility] [address] [id number] [place] [address]- 8056 Jun, [facility] [place] [facility] [address] [id number] [place] [address]- 9189 Jun, [facility] [place] [facility] [address] [id number] [place] [address]- 3018 25 May, 2013 [facility] [place] [facility] [address] [id number] [place] [address] 2546 25 May, 2013 [facility] [place] [facility] [address] [id number] [place] [address]- 2546 24 May, 2013 [facility] [place] [facility] [address] [id number] [place] [address]- 7716 24 May, 2013 [facility] [place] [facility] [address] [id number] [place] [address]- 2544 16 May, 2013 [facility] [place] [facility] [address] [id number] [place] [address]- 5629 16 May, 2013 [facility] [place] [facility] [address] [id number] [place] [address]- 3853 15 May, 2013 [facility] [place] [facility] [address] [id number] [place] [address]- 3064 15 May, 2013 [facility] [place] [facility] [address] [id number] [place] [address]- 0304 02 May, 2014 [facility] [place] [facility] [address] [id number] [place] [address]- 6155 02 May, 2013 [facility] [place] [facility] [address] [id number] [place] [address]- 9861 15 Apr, 2014 [facility] [place] [facility] [address] [id number] [place] [address]- 254 Apr, [facility] [place] [facility] [address] [id number] [place] [address]- 2540 Apr, [facility] [place] [facility] [address] [id number] [place] [address]- 3239 Apr, [facility] [place] [facility] [address] [id number] [place] [address]- 1072 Apr, [facility] [place] [facility] [address] [id number] [place] [address]- 9766 Apr, IMMUNIZATIONS No Known Immunizations SOCIAL HISTORY Never Assessed REASON FOR VISIT Depression, PT reports she is here for Ruben landry/maria c [place] PLAN OF CARE VITAL SIGNS Height 63 in 2018-01-28 Weight 135.6 lbs 2018-01-28 Temperature 97.7 degrees Fahrenheit 2018-01-28 Heart Rate 80 bpm 2018-01-28 Respiratory Rate 20 2018-01-28 BMI 24.02 kg/m2 2018-01-28 Blood pressure systolic 118 mmHg 2018-01-28 Blood pressure diastolic 72 mmHg 2018-01-28 MEDICATIONS Medication Instructions Dosage Frequency Start Date End Date Duration Status Levothyroxine Sodium 100 MCG TAKE ONE TABLET BY MOUTH ONCE DAILY 90 Active Hydrocodone-Acetaminophen 10-325 MG Orally 4 times a day 1 tablet as needed 6h January, 28 days Active PredniSONE 20 mg Orally Once a day 2 tablets 24h January, January, 05 days Active Ditropan XL 5 MG TAKE ONE TABLET BY MOUTH ONCE DAILY 30 Active Cymbalta 60 mg Orally Once a day 1 capsule 24h Dec, 30 day(s) Active Amoxicillin 500 mg Orally every 8 hrs 1 capsule 8h January, Feb, 14 days Active Flonase 50 MCG/ACT Nasally Once a day 1 spray in each nostril 24h May, Active RESULTS No Results PROCEDURES No Known [...]
--- OUTSIDE RECORDS SUMMARY | 2018-08-28 09:55 | XMS REPORT ---
Author Author KENNA RG [facility] Address [address] [place] [address] Care Team Providers Care Currency Exchange Specialist Name Role Phone KENNA RG Unavailable PROBLEMS Type Condition ICD9-CM Code [id number] Code Onset Dates Condition Status SNOMED Code Problem Major depressive disorder, single episode, moderate F32.1 Active 322457869 Problem Arthritis M19.90 Active 5662783 Problem Acquired hypothyroidism E03.9 Active 143511963 Problem Other chronic pain G89.29 Active 06411697 Problem Lumbago with sciatica, right side M54.41 Active 598792546200172 Problem Depression F32.9 Active 06448983 Problem Other chronic pain G89.29 Active 48850848 Problem Lumbago with sciatica, left side M54.42 Active 328582517 Problem Primary insomnia F51.01 Active 6660165 ALLERGIES No Known Allergies ENCOUNTERS Encounter Location Date Diagnosis [facility] [address] [address] Mar, Insomnia, unspecified type G47.00 [facility] [address] [address] Mar, Insomnia, unspecified type G47.00 [facility] [address] [address] Feb, Insomnia, unspecified type G47.00 [place] [id number] [address] January, Acute non-recurrent maxillary sinusitis J01.00 and Depression F32.9 [facility] [address] [address] January, Seasonal allergic rhinitis, unspecified trigger J30.2 [facility] [place] [id number] [place] [address]608- 1243 January, Insomnia, unspecified type G47.00 [place] [id number] [place] [address] 84420- 1070 Dec, Insomnia, unspecified type G47.00 [place] [id number] [place] [address] 17559- 4176 Dec, Other chronic pain G89.29 [place] [address] [address] Nov, Other chronic pain G89.29 ; Arthritis M19.90 ; Acquired hypothyroidism E03.9 ; Lumbago with sciatica, left side M54.42 ; Lumbago with sciatica, right side M54.41 and Major depressive disorder, single episode, moderate F32.1 [place] [id number] [place] [address] 05475- 5744 Nov, Insomnia, unspecified type G47.00 [facility] [address] [id number] [place] [address] -[address]53 Nov, Acute cystitis with hematuria N30.01 [place] [id number] [place] [address] 88054- 6477 Oct, Insomnia, unspecified type G47.00 [place] [id number] [place] [address]10- 2205 Sep, Insomnia, unspecified type G47.00 [place] [id number] [place] [address] 47473- 6201 Aug, Insomnia, unspecified type G47.00 [place] [id number] [place] [address] 02162- 9997 Jul, Insomnia, unspecified type G47.00 [place] [id number] [place] [address] 24315- 7934 Jul, [facility] [id number] [place] [address]241 -2745 Jul, Dysuria R30.0 and Acute cystitis with hematuria N30.01 [place] [address] [address]- [address] Jun, Insomnia, unspecified type G47.00 [place] [address] [address]- [address] Jun, Encounter for immunization Z23 [place] [address] [address]- [address] May, [place] [address] [address] May, Insomnia, unspecified type G47.00 ; Lumbago with sciatica, left side M54.42 ; Lumbago with sciatica, right side M54.41 and Other chronic pain G89.29 [facility] [address] [address] May, Acute non-recurrent maxillary sinusitis J01.00 [place] [address] [address]58- [address] Apr, Other chronic pain G89.29 [place] [address] 10616- 9923 Apr, Primary insomnia F51.01 and Pain in right leg M79.604 [place] [id number] [place] [address] 97998- 7290 Mar, Other chronic pain G89.29 [place] [address] 7[address]85- [address]39 Feb, Other chronic pain G89.29 [place] [id number] [place] [address] 51496- 9015 Feb, Depression F32.9 and Insomnia, unspecified type G47.00 [place] [address] [address]- 59[address] Feb, Other chronic pain G89.29 [facility] [address] [address] January, Arthritis M19.90 [facility] [address] [place] [address] January, [facility] [address] [place] [address] 62904- 3837 January, Other chronic pain G89.29 [facility] [address] [address] Dec, Other chronic pain G89.29 [facility] [address] [place] [address] 741225- 9224 Nov, Depression F32.9 [facility] [address] [place] [address] 07090- 9576 Nov, Other chronic pain G89.29 [facility] [address] [place] [address] Oct, Arthritis M19.90 [facility] [address] [place] [address] Aug, [facility] [address] [place] [address] Aug, [facility] [address] [place] [address] Jul, Acquired hypothyroidism E03.9 [facility] [address] [place] [address] 2546 Jul, [facility] [address] [place] [address] Jul, [facility] [address] [address] Jul, [facility] [address] [place] [address] Jun, [facility] [address] [place] [address] Jun, Encounter for immunization Z23 [facility] [id number] [place] [address] 89829- 9862 30 May, 2016 [facility] [id number] [place] [address] 22446- 3536 May, [facility] [address] [place] [address]679 [address] May, Acute non-recurrent maxillary sinusitis J01.00 and Bilateral acute serous otitis media, recurrence not specified H65.03 [facility] [id number] [place] [address] 86012- 9436 16 May, 2016 Rheumatoid arthritis 714.0 and Osteoarthritis, unspecified osteoarthritis type, unspecified site M19.90 [place] [id number] [place] [address] 60367- 8758 May, [facility] [id number] [place] [address] 65988- 7612 Apr, [place] [id number] [place] [address] 72075- 2198 Apr, OAB (overactive bladder) N32.81 ; Encounter for well woman exam with routine gynecological exam Z01.419 and Encounter for screening mammogram for breast cancer Z12.31 [place] [address] [place] [address] 75788- 2799 05 Apr, 2016 [place] [id number] [place] [address] 33514- 4863 Mar, [place] [id number] [place] [address] 54635- 6332 Feb, Acquired hypothyroidism E03.9 [place] [id number] [place] [address] 80869- 4733 Feb, [place] [address] [address]- [address] January, [facility] [id number] [place] [address] 76008- 4614 January, [facility] [id number] [place] [address] 28591- 6747 Dec, [facility] [id number] [place] [address] 55024- 1397 Nov, [facility] [id number] [place] [address] 36570- 9184 Oct, [facility] [id number] [place] [address] 85500- 3072 Sep, Acquired hypothyroidism E03.9 [place] [id number] [place] [address] 45109- 7851 Aug, Acquired hypothyroidism E03.9 ; Hiatal hernia K44.9 and Lumbar neuritis M54.16 [facility] [id number] [place] [address] 28578- 1840 Jul, [facility] [id number] [place] [address] 41829- 0133 Jul, Major depressive disorder, single episode, moderate F32.1 [place] [id number] [place] [address] 95565- 7023 Jul, Acquired hypothyroidism E03.9 [facility] [address] [place] [address] 93962- 9040 Jun, Major depressive disorder, single episode, moderate F32.1 [facility] [id number] [place] [address] 59273- 6570 Jun, [facility] [id number] [place] [address] 20275- 2640 Jun, Depression F32.9 ; Irritable bowel syndrome with diarrhea K58.0 and Other chronic pain G89.29 [facility] [id number] [place] [address] 84929- 8642 Jun, Family history of pinworm infection Z83.1 [facility] [id number] [place] [address] 14517- 5297 Jun, Acquired hypothyroidism E03.9 [facility] [id number] [place] [address] 09895- 6914 Jun, Unspecified hypothyroidism 244.9 [facility] [address] 42624- 2863 Jun, [facility] [id number] [place] [address] 22287- 6797 May, Unspecified hypothyroidism 244.9 [facility] [id number] [place] [address] 26364- 9264 May, [facility] [id number] [place] [address] 64116- 5988 Apr, [facility] [id number] [place] [address] 94133- 0990 Mar, [facility] [id number] [place] [address] 37632- 2694 Feb, Paronychia 681.9 and Hypothyroidism 244.9 [facility] [id number] [place] [address] 20807- 2334 January, [facility] [id number] [place] [address] 99311- 2270 14 Dec, 2014 [facility] [id number] [place] [address] 81749- 3584 Dec, [facility] [id number] [place] [address] 621068- 0180 Nov, [facility] [id number] [place] [address] 638233- 4373 Nov, [facility] [id number] [place] [address] 28850- 4150 Nov, [facility] [place] [facility] [address] [id number] [place] [address]- 5323 Nov, [facility] [place] [facility] [address] [id number] [place] [address]- 7923 Oct, [facility] [place] [facility] [address] [id number] [place] [address]- 1486 Oct, [facility] [place] [facility] [address] [id number] [place] [address]- 8189 Oct, [facility] [place] [facility] [address] [id number] [place] [address]- 9786 Oct, [facility] [place] [facility] [address] [id number] [place] [address]- 5526 Sep, [facility] [place] [facility] [address] [facility] [id number] [place] [address]- 8102 Sep, [facility] [place] [facility] [address] [facility] [id number] [place] [address]- 2639 Sep, [facility] [place] [facility] [address] [facility] [id number] [place] [address]- 3202 Sep, [facility] [place] [facility] [address] [facility] [id number] [place] [address]- 9338 Aug, [facility] [place] [facility] [address] [id number] [place] [address]- 4589 Aug, [facility] [place] [facility] [address] [id number] [address]- 1979 Jul, [facility] [place] [facility] [address] [id number] [place] [address]- 3237 Jul, [facility] [place] [facility] [address] [id number] [place] [address]- 8451 Jun, [facility] [place] [facility] [address] [id number] [place] [address]- 2202 Jun, [facility] [place] [facility] [address] [id number] [place] [address]- 6465 25 May, 2013 [facility] [place] [facility] [address] [id number] [place] [address] 2546 25 May, 2013 [facility] [place] [facility] [address] [id number] [place] [address] 2546 24 May, 2013 [facility] [place] [facility] [address] [id number] [place] [address] 2545 24 May, 2013 [facility] [place] [facility] [address] [id number] [place] [address] 2542 16 May, 2013 [facility] [place] [facility] [address] [id number] [place] [address]- 0504 16 May, 2013 [facility] [place] [facility] [address] [id number] [place] [address]- 0249 15 May, 2013 [facility] [place] [facility] [address] [id number] [place] [address]- 1900 15 May, 2013 [facility] [place] [facility] [address] [id number] [place] [address]- 7548 02 May, 2014 [facility] [place] [facility] [address] [id number] [place] [address]- 2645 02 May, 2013 [facility] [place] [facility] [address] [id number] [place] [address]- 6036 15 Apr, 2014 [facility] [place] [facility] [address] [id number] [place] [address]- 7296 Apr, [facility] [place] [facility] [address] [id number] [place] [address]- 2334 Apr, [facility] [place] [facility] [address] [id number] [place] [address]- 2307 Apr, [facility] [place] [facility] [address] [id number] [place] [address]- 5434 Apr, [facility] [place] [facility] [address] [id number] [place] [address]- 8101 Apr, IMMUNIZATIONS No Known Immunizations SOCIAL HISTORY Never Assessed REASON FOR VISIT bilateral earache, sinus pressure, sinus drainage since this am. wm PLAN OF CARE Activity Details Follow Up Wednesday with Lj Ashton Reason:routine visit VITAL SIGNS Height 63 in 2018-01-24 Weight 136.2 lbs 2018-01-24 Temperature 97.8 degrees Fahrenheit 2018-01-24 Heart Rate 80 bpm 2018-01-24 Respiratory Rate 20 2018-01-24 BMI 24.12 kg/m2 2018-01-24 Blood pressure systolic 120 mmHg 2018-01-24 Blood pressure diastolic 76 mmHg 2018-01-24 MEDICATIONS Medication Instructions Dosage Frequency Start Date End Date Duration Status Levothyroxine Sodium 100 MCG Oral Once a day 1 capsule 24h Active Flonase 50 MCG/ACT Nasally Once a day 1 spray in each nostril 24h 14 May, 2017 Active Hydrocodone-Acetaminophen 10-325 MG Orally 4 times a day 1 tablet as needed 6h January, 28 days Active Ditropan XL 5 MG [...]
--- OUTSIDE RECORDS SUMMARY | 2018-08-28 09:56 | XMS REPORT ---
Author Author MARIA INES LEAL Organization [facility] Address [address] [place] [address] Care Team Providers Care Financial Processing Clerk Name Role Phone MARIA INES LEAL Unavailable PROBLEMS Type Condition ICD9-CM Code VRZ19-EI Code Onset Dates Condition Status SNOMED Code Problem Major depressive disorder, single episode, moderate F32.1 Active 425683997 Problem Arthritis M19.90 Active 0879001 Problem Acquired hypothyroidism E03.9 Active 755241165 Problem Other chronic pain G89.29 Active 89687531 Problem Lumbago with sciatica, right side M54.41 Active 564173940529272 Problem Depression F32.9 Active 62924323 Problem Other chronic pain G89.29 Active 49548326 Problem Lumbago with sciatica, left side M54.42 Active 579719049 Problem Primary insomnia F51.01 Active 5700167 ALLERGIES No Information ENCOUNTERS Encounter Location Date Diagnosis [facility] [address] [address] Apr, [facility] [address] [address] Mar, Insomnia, unspecified type G47.00 [facility] [address] [address] Feb, Insomnia, unspecified type G47.00 [place] [address] [address] January, Acute non-recurrent maxillary sinusitis J01.00 and Depression F32.9 [facility] [address] [address] January, Seasonal allergic rhinitis, unspecified trigger J30.2 [facility] [address] [address]- [address] January, Insomnia, unspecified type G47.00 [place] [address] [place] [id number] [place] [address]22- 4414 Dec, Insomnia, unspecified type G47.00 [place] [address] [place] [id number] [place] [address] 63738- 5755 Dec, Other chronic pain G89.29 [place] [address] [address]- [address] Nov, Other chronic pain G89.29 ; Arthritis M19.90 ; Acquired hypothyroidism E03.9 ; Lumbago with sciatica, left side M54.42 ; Lumbago with sciatica, right side M54.41 and Major depressive disorder, single episode, moderate F32.1 [place] [address] [place] [address] [id number] [place] [address] 81152- 5103 Nov, Insomnia, unspecified type G47.00 [facility] [address] [place] [id number] [place] [address]378 -[address]806 Nov, Acute cystitis with hematuria N30.01 [place] [address] [place] [address] [id number] [place] [address] 92525- 5548 Oct, Insomnia, unspecified type G47.00 [place] [address] [place] [address] [id number] [place] [address] 40446- 5326 Sep, Insomnia, unspecified type G47.00 [place] [address] [place] [address] [id number] [place] [address] 48566- 3501 Aug, Insomnia, unspecified type G47.00 [place] [address] [place] [address] [id number] [place] [address] 69476- 2122 Jul, Insomnia, unspecified type G47.00 [place] [address] [place] [address] [id number] [place] [address] 31667- 8673 Jul, [facility] [id number] [place] [address]97 -1762 Jul, Dysuria R30.0 and Acute cystitis with hematuria N30.01 [place] [address] 15306- 0094 Jun, Insomnia, unspecified type G47.00 [place] [address] [place] [id number] [place] [address] 78393- 4647 Jun, Encounter for immunization Z23 [place] [address] [address]- [address] May, [place] [address] 83952- 1879 May, Insomnia, unspecified type G47.00 ; Lumbago with sciatica, left side M54.42 ; Lumbago with sciatica, right side M54.41 and Other chronic pain G89.29 [facility] [address] [address] May, Acute non-recurrent maxillary sinusitis J01.00 [place] [address] 27188- 7583 Apr, Other chronic pain G89.29 [place] [address] 33264- 75[address] Apr, Primary insomnia F51.01 and Pain in right leg M79.604 [place] [address] [place] [id number] [place] [address] 07995- 6004 Mar, Other chronic pain G89.29 [place] [address] [place] [id number] [place] [address] 89944- 4114 Feb, Other chronic pain G89.29 [facility] [address] [address]- [address] Feb, Depression F32.9 and Insomnia, unspecified type G47.00 [place] [address] 02498- 6734 Feb, Other chronic pain G89.29 [facility] [id number] [address] January, Arthritis M19.90 [facility] [id number] [address] January, [facility] [id number] [address] 2546 January, Other chronic pain G89.29 [facility] [address] [facility] [id number] [address] 2546 Dec, Other chronic pain G89.29 [facility] [id number] [place] [address] 89208 2546 Nov, Depression F32.9 [facility] [address] [address] 2546 Nov, Other chronic pain G89.29 [facility] [id number] [address] Oct, Arthritis M19.90 [facility] [id number] [place] [address] 07160- 4306 Aug, [facility] [address] [address] Aug, [facility] [address] [address] Jul, Acquired hypothyroidism E03.9 [facility] [id number] [address]49 Jul, [facility] [id number] [address] 2541 Jul, [facility] [address] [address]- [address] Jul, [facility] [address] [address]- 7698 Jun, [facility] [id number] [place] [address] 14932- 7842 Jun, Encounter for immunization Z23 [facility] [address] [place] [id number] [place] [address] 85033- 6998 30 May, 2016 [facility] [address] [place] [id number] [place] [address] 50553- 5836 May, [facility] [id number] [place] [address]659 [address]31 May, Acute non-recurrent maxillary sinusitis J01.00 and Bilateral acute serous otitis media, recurrence not specified H65.03 [place] [address] [place] [id number] [place] [address] 80161- 6810 May, Rheumatoid arthritis 714.0 and Osteoarthritis, unspecified osteoarthritis type, unspecified site M19.90 [place] [address] [place] [id number] [place] [address] 77229- 0482 May, [facility] [address] [place] [id number] [place] [address] 10023- 4253 Apr, [place] [address] [place] [address] [id number] [place] [address] 91283- 9389 Apr, OAB (overactive bladder) N32.81 ; Encounter for well woman exam with routine gynecological exam Z01.419 and Encounter for screening mammogram for breast cancer Z12.31 [place] [address] [place] [address] [id number] [place] [address] 62897- 6771 Apr, [place] [address] [place] [id number] [place] [address] 92370- 0454 Mar, [place] [address] [place] [address] [id number] [place] [address] 24034- 3934 Feb, Acquired hypothyroidism E03.9 [place] [address] [place] [address] [id number] [place] [address] 48754- 9607 Feb, [place] [address] [place] [id number] [place] [address] 36411- 8018 January, [facility] [id number] [place] [address] 72102- 9978 January, [facility] [address] [place] [id number] [place] [address] 49138- 3038 Dec, [facility] [address] [place] [id number] [place] [address] 93291- 4894 Nov, [facility] [address] [place] [id number] [place] [address] 60077- 8159 Oct, [facility] [address] [place] [id number] [place] [address] 92200- 1640 Sep, Acquired hypothyroidism E03.9 [facility] [address] [place] [id number] [place] [address] 81640- 5135 Aug, Acquired hypothyroidism E03.9 ; Hiatal hernia K44.9 and Lumbar neuritis M54.16 [facility] [address] [place] [id number] [place] [address] 32424- 1881 Jul, [facility] [address] [place] [id number] [place] [address] 23507- 0054 Jul, Major depressive disorder, single episode, moderate F32.1 [place] [address] [place] [address] [id number] [place] [address] 79083- 3230 Jul, Acquired hypothyroidism E03.9 [facility] [address] [place] [id number] [place] [address] 94283- 5969 Jun, Major depressive disorder, single episode, moderate F32.1 [facility] [address] [place] [id number] [place] [address] 94057- 2290 Jun, [facility] [address] [place] [id number] [place] [address] 22610- 5737 Jun, Depression F32.9 ; Irritable bowel syndrome with diarrhea K58.0 and Other chronic pain G89.29 [facility] [address] [place] [id number] [place] [address] 13344- 8348 Jun, Family history of pinworm infection Z83.1 [facility] [address] [place] [address] [id number] [place] [address] 95419- 5960 Jun, Acquired hypothyroidism E03.9 [facility] [address] [place] [id number] [place] [address] 16368- 6058 Jun, Unspecified hypothyroidism 244.9 [facility] [address] 18581- 2188 Jun, [facility] [address] [place] [id number] [place] [address] 05016- 4490 May, Unspecified hypothyroidism 244.9 [facility] [address] 27753- 4905 May, [facility] [address] [place] [address] [id number] [place] [address] 95179- 7538 Apr, [facility] [address] 24049- 0034 Mar, [facility] [address] [place] [id number] [place] [address] 81709- 8823 Feb, Paronychia 681.9 and Hypothyroidism 244.9 [facility] [address] [place] [id number] [place] [address] 56109- 2371 January, [facility] [address] [place] [id number] [place] [address] 07007- 9412 14 Dec, 2014 [facility] [address] [place] [id number] [place] [address] 21723- 9934 Dec, [facility] [address] [place] [id number] [place] [address] 39090- 3413 Nov, [facility] [address] [place] [id number] [place] [address] 66928- 4784 Nov, [facility] [address] [place] [id number] [place] [address] 52008- 6415 Nov, [facility] [place] [facility] [address] [id number] [place] [address]- 8285 Nov, [facility] [place] [facility] [address] [id number] [place] [address]- 6466 Oct, [facility] [place] [facility] [address] [id number] [place] [address]- 4597 Oct, [facility] [place] [facility] [address] [id number] [place] [address]- 4079 Oct, [facility] [place] [facility] [address] [id number] [place] [address]- 6462 Oct, [facility] [place] [facility] [address] [id number] [place] [address]- 7818 Sep, [facility] [place] [facility] [address] [id number] [place] [address]- 6074 Sep, [facility] [place] [facility] [address] [id number] [place] [address]- 5930 Sep, [facility] [place] [facility] [address] [id number] [place] [address]- 1339 Sep, [facility] [place] [facility] [address] [facility] [id number] [place] [address]- 8741 Aug, [facility] [place] [facility] [address] [id number] [place] [address]- 5779 Aug, [facility] [place] [facility] [address] [id number] [address]- 5982 Jul, [facility] [place] [facility] [address] [id number] [place] [address]- 1307 Jul, [facility] [place] [facility] [address] [id number] [place] [address]- 6557 Jun, [facility] [place] [facility] [address] [id number] [place] [address]- 5298 Jun, [facility] [place] [facility] [address] [id number] [address]- 2295 25 May, 2013 [facility] [address] [id number], [place] [address] 2546 25 May, 2013 [facility] [address] [id number] [address] 2546 24 May, 2014 [facility] [address] [id number], [place] [address]- 6386 24 May, 2014 [facility] [address] [id number] [address]- 3866 16 May, 2014 [facility] [address] [id number] [place] [address]- 8337 16 May, 2014 [facility] [address] [id number] [address]- 6897 15 May, 2014 [facility] [address] [facility] [id number] [address]- 2744 15 May, 2014 [facility] [address] [facility] [id number] [address]- 9255 May, [facility] [address] [id number][place] [address]- 1375 May, [facility] [address] [facility] [id number] [address]- 8734 Apr, [facility] [address] [id number][place] [address]- 5564 Apr, [facility] [address] [id number], [place] [address]- 0745 Apr, [facility] [address] [id number], [place] [address]- 0265 Apr, [facility] [address] [facility] [id number], [place] [address]- 0299 Apr, [facility] [address] [facility] [id number], [place] [address]- 3133 Apr, IMMUNIZATIONS No Known Immunizations SOCIAL HISTORY Never Assessed REASON FOR VISIT Controlled Med Refill 12/20 PLAN OF CARE VITAL SIGNS MEDICATIONS Medication Instructions Dosage Frequency Start Date End Date Duration Status Hydrocodone-Acetaminophen 10-325 MG Orally 4 times a day 1 tablet as needed 6h Dec, 28 days Active RESULTS No Results PROCEDURES [...]
--- OUTSIDE RECORDS SUMMARY | 2018-08-28 09:56 | XMS REPORT ---
Author MARIA INES Guerrero Organization [employer] Address Unknown Phone Unavailable Care Team Providers Care Wax Pattern Coater Name Role Phone MARIA INES LEAL CP Unavailable Allergies No Known Allergies Problems Problem Type Condition Code Onset Dates Condition Status Problem Major depressive disorder, single episode, moderate F32.1 Active Medications Medication Code System Code Instructions Start Date End Date Status Dosage Hydrocodone-Acetaminophen [facility] [id number] 10-325 MG Orally 4 times a day Jul 10, 2016 1 tablet as needed Results No Known Results Summary Purpose [employer] Submission
--- OUTSIDE RECORDS SUMMARY | 2018-08-28 09:56 | XMS REPORT ---
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 Role Phone MARIA INES LEAL Unavailable PROBLEMS Type Condition ICD9-CM Code OUP91-MI Code Onset Dates Condition Status SNOMED Code Problem Major depressive disorder, single episode, moderate F32.1 Active 093184302 Problem Arthritis M19.90 Active 6407776 Problem Acquired hypothyroidism E03.9 Active 532750949 Problem Other chronic pain G89.29 Active 09727947 Problem Lumbago with sciatica, right side M54.41 Active 245165333775305 Problem Depression F32.9 Active 86068976 Problem Other chronic pain G89.29 Active 03997185 Problem Lumbago with sciatica, left side M54.42 Active 265883493 Problem Primary insomnia F51.01 Active 3150561 ALLERGIES No Information ENCOUNTERS Encounter Location Date Diagnosis [facility] [address] [address] Feb, Insomnia, unspecified type G47.00 [facility] [id number] [place] [address] 76576- 6561 January, Acute non-recurrent maxillary sinusitis J01.00 and Depression F32.9 [facility] [id number] [place] [address] 85513 -5006 January, Seasonal allergic rhinitis, unspecified trigger J30.2 [facility] [address] [address]- [address] January, Insomnia, unspecified type G47.00 [facility] [id number] [place] [address] 77608- 9788 Dec, Insomnia, unspecified type G47.00 [facility] [id number] [place] [address] 37730- 0186 Dec, Other chronic pain G89.29 [place] [address] [address]- [address] Nov, Other chronic pain G89.29 ; Arthritis M19.90 ; Acquired hypothyroidism E03.9 ; Lumbago with sciatica, left side M54.42 ; Lumbago with sciatica, right side M54.41 and Major depressive disorder, single episode, moderate F32.1 [place] [id number] [place] [address] 16049- 0812 Nov, Insomnia, unspecified type G47.00 [facility] [place] [address] [address] Nov, Acute cystitis with hematuria N30.01 [place] [address] 64108- 4098 Oct, Insomnia, unspecified type G47.00 [place] [id number] [place] [address] 78055- 2160 Sep, Insomnia, unspecified type G47.00 [place] [id number] [place] [address] 63694- 4481 Aug, Insomnia, unspecified type G47.00 [place] [id number] [place] [address] 88014- 7727 Jul, Insomnia, unspecified type G47.00 [place] [id number] [place] [address] 33350- 5635 Jul, [facility] [place] [address] [address]604 Jul, Dysuria R30.0 and Acute cystitis with hematuria N30.01 [place] [id number] [place] [address] 23070- 3307 Jun, Insomnia, unspecified type G47.00 [place] [id number] [place] [address] 99181- 5175 18 Jun, 2017 Encounter for immunization Z23 [facility] [id number] [place] [address] 83024- 4668 May, [facility] [id number] [place] [address] 39935- 4584 May, Insomnia, unspecified type G47.00 ; Lumbago with sciatica, left side M54.42 ; Lumbago with sciatica, right side M54.41 and Other chronic pain G89.29 [facility] [id number] [place] [address] 16196 -0796 14 May, 2017 Acute non-recurrent maxillary sinusitis J01.00 [facility] [id number] [place] [address] 70184- 2040 Apr, Other chronic pain G89.29 [place] [id number] [place] [address] 39695- 1929 Apr, Primary insomnia F51.01 and Pain in right leg M79.604 [place] [id number] [place] [address] 38992- 4980 Mar, Other chronic pain G89.29 [facility] [id number] [place] [address] 59288- 0738 Feb, Other chronic pain G89.29 [facility] [id number] [place] [address] 83184- 8764 Feb, Depression F32.9 and Insomnia, unspecified type G47.00 [facility] [id number] [place] [address] 97940- 7732 Feb, Other chronic pain G89.29 [facility] [id number] [place] [address] 39083- 1543 January, Arthritis M19.90 [facility] [id number] [place] [address] 10450- 9332 January, [facility] [address] [address] January, Other chronic pain G89.29 [facility] [id number] [place] [address] 54230- 0916 Dec, Other chronic pain G89.29 [facility] [id number] [place] [address] 33785- 4466 Nov, Depression F32.9 [facility] [address] 30978- 2546 13 Nov, 2016 Other chronic pain G89.29 [facility] [id number] [place] [address] 89105- 7806 Oct, Arthritis M19.90 [facility] [id number] [place] [address] 38889- 8666 Aug, [facility] [id number] [place] [address] 93877- 0296 Aug, [facility] [id number] [place] [address] 87174- 6218 Jul, Acquired hypothyroidism E03.9 [facility] [id number] [place] [address] 52561- 2593 Jul, [facility] [id number] [place] [address] 43559- 1620 Jul, [facility] [id number] [place] [address] 81863 2546 Jul, [facility] [id number] [place] [address] 60233- 4364 Jun, [facility] [id number] [place] [address] 84330- 0046 Jun, Encounter for immunization Z23 [facility] [id number] [place] [address] 65050- 9986 30 May, 2016 [facility] [address] [address]- 9232 26 May, 2016 [facility] [id number] [place] [address] 85701 -4758 19 May, 2016 Acute non-recurrent maxillary sinusitis J01.00 and Bilateral acute serous otitis media, recurrence not specified H65.03 [facility] [address] [place] [address] 58627- 2355 16 May, 2016 Rheumatoid arthritis 714.0 and Osteoarthritis, unspecified osteoarthritis type, unspecified site M19.90 [facility] [id number] [place] [address] 49994- 7399 May, [facility] [id number] [place] [address] 82325- 8099 Apr, [facility] [id number] [place] [address] 96549- 3403 Apr, OAB (overactive bladder) N32.81 ; Encounter for well woman exam with routine gynecological exam Z01.419 and Encounter for screening mammogram for breast cancer Z12.31 [place] [id number] [place] [address] 13920- 6716 Apr, [facility] [id number] [place] [address] 17085- 7714 Mar, [facility] [address] [place] [address] 11002- 6474 Feb, Acquired hypothyroidism E03.9 [facility] [address] [place] [address] 83579- 7617 Feb, [facility] [id number] [place] [address] 27804- 1248 January, [facility] [id number] [place] [address] 46218- 4771 January, [facility] [address] [place] [address] 40954- 7145 Dec, [facility] [id number] [place] [address] 55806- 0359 Nov, [facility] [address] 55225- 5766 Oct, [facility] [address] 44639- 0148 Sep, Acquired hypothyroidism E03.9 [facility] [address] 10037- 5909 Aug, Acquired hypothyroidism E03.9 ; Hiatal hernia K44.9 and Lumbar neuritis M54.16 [place] [address] 27518- 8930 Jul, [place] [address] 09250- 6726 Jul, Major depressive disorder, single episode, moderate F32.1 [place] [address] 88051- 1426 Jul, Acquired hypothyroidism E03.9 [place] [address] 69086- 3362 Jun, Major depressive disorder, single episode, moderate F32.1 [place] [address] [place] [id number] [place] [address] 34613- 0724 Jun, [facility] [address] 08436- 5487 Jun, Depression F32.9 ; Irritable bowel syndrome with diarrhea K58.0 and Other chronic pain G89.29 [place] [id number] [place] [address] 49388- 8876 Jun, Family history of pinworm infection Z83.1 [place] [id number] [place] [address] 72135- 9763 Jun, Acquired hypothyroidism E03.9 [facility] [address] 49404- 8368 Jun, Unspecified hypothyroidism 244.9 [facility] [address] [place] [address] 45044- 4208 Jun, [facility] [id number] [place] [address] 043515- 7136 16 May, 2015 Unspecified hypothyroidism 244.9 [facility] [id number] [place] [address] 79718- 6161 04 May, 2015 [facility] [id number] [place] [address] 13768- 3250 Apr, [facility] [id number] [place] [address] 75503- 0580 08 Mar, 2015 [facility] [id number] [place] [address] 65142- 1763 Feb, Paronychia 681.9 and Hypothyroidism 244.9 [facility] [id number] [place] [address] 61516- 0465 January, [facility] [id number] [place] [address] 04482- 0603 14 Dec, 2014 [facility] [id number] [address]- 6032 Dec, [facility] [address] [address]- 1785 Nov, [facility] [address] [address]- 7961 Nov, [facility] [address] [address]- 0531 Nov, [facility] [address] [address]- 4419 Nov, [facility] [address] [address]- 0630 Oct, [facility] [id number] [address]- 7924 Oct, [facility] [address] [id number] [place] [address]- 9713 Oct, [facility] [place] [facility] [address] [id number] [place] [address]- 5466 Oct, [facility] [place] [facility] [address] [id number] [place] [address]- 7227 Sep, [facility] [place] [facility] [address] [id number] [place] [address]- 1672 Sep, [facility] [place] [facility] [address] [id number] [place] [address]- 9264 Sep, [facility] [place] [facility] [address] [id number] [place] [address]- 5921 Sep, [facility] [place] [facility] [address] [id number] [place] [address]- 4909 Aug, [facility] [place] [facility] [address] [id number] [place] [address]- 1966 Aug, [facility] [place] [facility] [address] [id number] [place] [address]- 1018 Jul, [facility] [place] [facility] [address] [id number] [place] [address]- 3588 Jul, [facility] [place] [facility] [address] [id number] [place] [address]- 1317 Jun, [facility] [place] [facility] [address] [id number] [place] [address]- 7707 Jun, [facility] [place] [facility] [address] [id number] [place] [address]- 0409 May, [facility] [place] [facility] [address] [id number] [place] [address] May, [facility] [place] [facility] [address] [id number] [place]- 9657 May, [facility] [address] [facility] [id number] [address]- 9747 May, [facility] [address] [facility] [id number] [address]- 5445 May, [facility] [address] [facility] [id number] [address]- 0511 May, [facility] [address] [facility] [id number] [address]- 0064 May, [facility] [address] [facility] [id number] [address]- 9622 May, [facility] [address] [facility] [id number] [address]- 0945 May, [facility] [address] [facility] [id number] [address]- 0422 May, [facility] [address] [address]- 5642 Apr, [facility] [address] [facility] [id number] [address]- 8667 Apr, [facility] [address] [address]- 3810 Apr, [facility] [address] [facility] [id number] [address]- 1427 Apr, [facility] [id number] [address]- 4854 Apr, [facility] [address] [facility] [id number] [address]- 6941 Apr, IMMUNIZATIONS No Known Immunizations SOCIAL HISTORY Never Assessed REASON FOR VISIT Controlled Med Refill 09/24/17 PLAN OF CARE VITAL SIGNS MEDICATIONS Medication Instructions Dosage Frequency Start Date End Date Duration Status Hydrocodone-Acetaminophen 10-325 MG Orally 4 times a day 1 tablet as needed Sep, 28 days Active RESULTS No Results PROCEDURES [...]
--- OUTSIDE RECORDS SUMMARY | 2018-08-28 09:56 | XMS REPORT ---
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 Role Phone MARIA INES LEAL Unavailable PROBLEMS Type Condition ICD9-CM Code [id number] Code Onset Dates Condition Status SNOMED Code Problem Major depressive disorder, single episode, moderate F32.1 Active 089819640 Problem Arthritis M19.90 Active 9853638 Problem Acquired hypothyroidism E03.9 Active 814913547 Problem Other chronic pain G89.29 Active 69752982 Problem Lumbago with sciatica, right side M54.41 Active 532032161970671 Problem Depression F32.9 Active 03156577 Problem Other chronic pain G89.29 Active 49602060 Problem Lumbago with sciatica, left side M54.42 Active 359064824 Problem Primary insomnia F51.01 Active 1558315 ALLERGIES No Information ENCOUNTERS Encounter Location Date Diagnosis [facility] [id number] [place] [address] 42928- 1688 Mar, Insomnia, unspecified type G47.00 [facility] [id number] [place] [address] 97284- 2250 Mar, Insomnia, unspecified type G47.00 [facility] [id number] [place] [address] 39140- 0381 Feb, Insomnia, unspecified type G47.00 [facility] [id number] [place] [address] 50088- 4708 January, Acute non-recurrent maxillary sinusitis J01.00 and Depression F32.9 [facility] [id number] [place] [address] 67273 -3778 January, Seasonal allergic rhinitis, unspecified trigger J30.2 [facility] [id number] [place] [address] 40582- 3040 January, Insomnia, unspecified type G47.00 [facility] [id number] [place] [address] 34896- 4384 Dec, Insomnia, unspecified type G47.00 [facility] [id number] [place] [address] 23484- 3127 Dec, Other chronic pain G89.29 [facility] [address] 85205- 1731 Nov, Other chronic pain G89.29 ; Arthritis M19.90 ; Acquired hypothyroidism E03.9 ; Lumbago with sciatica, left side M54.42 ; Lumbago with sciatica, right side M54.41 and Major depressive disorder, single episode, moderate F32.1 [facility] [address] 23376- 3025 Nov, Insomnia, unspecified type G47.00 [facility] [id number] [place] [address] 07786 -4667 Nov, Acute cystitis with hematuria N30.01 [facility] [id number] [place] [address] 08867- 1075 Oct, Insomnia, unspecified type G47.00 [facility] [id number] [place] [address] 92169- 9351 Sep, Insomnia, unspecified type G47.00 [facility] [id number] [place] [address] 97005- 5102 Aug, Insomnia, unspecified type G47.00 [facility] [id number] [place] [address] 35094- 5539 Jul, Insomnia, unspecified type G47.00 [facility] [id number] [place] [address] 94317- 3136 Jul, [facility] [address] 67960 -5349 Jul, Dysuria R30.0 and Acute cystitis with hematuria N30.01 [place] [place] [address] 27778- 3078 Jun, Insomnia, unspecified type G47.00 [facility] [address] 72695- 7328 Jun, Encounter for immunization Z23 [facility] [facility] [address] 01726- 3611 May, [facility] [address] 27891- 6863 May, Insomnia, unspecified type G47.00 ; Lumbago with sciatica, left side M54.42 ; Lumbago with sciatica, right side M54.41 and Other chronic pain G89.29 [facility] [address] 04285 -2897 May, Acute non-recurrent maxillary sinusitis J01.00 [place] [address] 14121- 4502 Apr, Other chronic pain G89.29 [facility] [address] 38315- 9891 Apr, Primary insomnia F51.01 and Pain in right leg M79.604 [facility] [facility] [address] 06434- 7290 Mar, Other chronic pain G89.29 [facility] [address] 04879- 1552 Feb, Other chronic pain G89.29 [facility] [address] 81835- 8180 Feb, Depression F32.9 and Insomnia, unspecified type G47.00 [place] [address] 56989- 1495 Feb, Other chronic pain G89.29 [facility] [address] [facility] [id number] [place] [address]- 1356 January, Arthritis M19.90 [facility] [address] [facility] [id number] [place] [address] 2546 January, [facility] [address] [facility] [id number] [address] 2546 January, Other chronic pain G89.29 [facility] [address] [facility] [id number] [place] [address] 2546 Dec, Other chronic pain G89.29 [facility] [address] [facility] [id number] [place] [address], [place] [address] 2546 Nov, Depression F32.9 [facility] [address] [id number] [address] 2546 Nov, Other chronic pain G89.29 [facility] [address] [place] [address]- 2816 Oct, Arthritis M19.90 [facility] [address] [place] [address]- 0196 Aug, [facility] [address] [id number] [address] 2546 Aug, [facility] [address] [address] 2546 Jul, Acquired hypothyroidism E03.9 [facility] [address] [facility] [id number], [place] [address] 2546 Jul, [facility] [address] [address] 2546 Jul, [facility] [address] [id number] [address] 2546 Jul, [facility] [address], [place] [address]- 5070 Jun, [facility] [id number] [place] [address] 36695- 0763 Jun, Encounter for immunization Z23 [facility] [id number] [place] [address] 30143- 7142 30 May, 2016 [facility] [id number] [place] [address] 54900- 9398 May, [facility] [id number] [place] [address] 68213 -9545 May, Acute non-recurrent maxillary sinusitis J01.00 and Bilateral acute serous otitis media, recurrence not specified H65.03 [facility] [id number] [place] [address] 43197- 4954 16 May, 2016 Rheumatoid arthritis 714.0 and Osteoarthritis, unspecified osteoarthritis type, unspecified site M19.90 [facility] [id number] [place] [address] 98964- 0704 May, [facility] [id number] [place] [address] 57291- 1614 Apr, [facility] [id number] [place] [address] 48167- 3868 Apr, OAB (overactive bladder) N32.81 ; Encounter for well woman exam with routine gynecological exam Z01.419 and Encounter for screening mammogram for breast cancer Z12.31 [facility] [id number] [place] [address] 14784- 3024 05 Apr, 2016 [facility] [id number] [place] [address] 17234- 6824 Mar, [facility] [id number] [place] [address] 56299- 9324 Feb, Acquired hypothyroidism E03.9 [facility] [id number] [place] [address] 85799- 1616 Feb, [place] [address] [place] [address]- 3325 January, [facility] [id number] [place] [address] 40647- 8867 January, [facility] [id number] [place] [address] 62663- 5437 Dec, [facility] [id number] [place] [address] 79719- 0937 Nov, [facility] [id number] [place] [address] 54881- 9820 Oct, [facility] [address] 45726- 6025 Sep, Acquired hypothyroidism E03.9 [facility] [address] 85132- 1485 Aug, Acquired hypothyroidism E03.9 ; Hiatal hernia K44.9 and Lumbar neuritis M54.16 [facility] [id number] [place] [address] 41745- 2180 Jul, [facility] [address] 21345- 7980 Jul, Major depressive disorder, single episode, moderate F32.1 [facility] [id number] [place] [address] 97081- 0647 Jul, Acquired hypothyroidism E03.9 [facility] [id number] [place] [address] 26869- 8452 Jun, Major depressive disorder, single episode, moderate F32.1 [facility] [id number] [place] [address] 80513- 9872 Jun, [facility] [address] 40451- 8131 Jun, Depression F32.9 ; Irritable bowel syndrome with diarrhea K58.0 and Other chronic pain G89.29 [facility] [address] [place] [address]- 7176 Jun, Family history of pinworm infection Z83.1 [facility] [id number] [place] [address] 52771- 2775 Jun, Acquired hypothyroidism E03.9 [facility] [id number] [place] [address] 32316- 4196 Jun, Unspecified hypothyroidism 244.9 [facility] [address] 91096- 1781 Jun, [facility] [id number] [place] [address] 78511- 2166 May, Unspecified hypothyroidism 244.9 [facility] [id number] [place] [address] 45604- 4298 May, [facility] [address] 10272- 1603 Apr, [facility] [address] 98377- 0442 Mar, [facility] [id number] [place] [address] 47429- 7695 Feb, Paronychia 681.9 and Hypothyroidism 244.9 [facility] [id number] [place] [address] 20079- 5309 January, [facility] [id number] [place] [address] 00167- 3281 14 Dec, 2014 [facility] [id number] [place] [address] 77340- 9524 Dec, [facility] [address] 995739- 1365 Nov, [facility] [id number] [place] [address] 493008- 0756 Nov, [facility] [id number] [place] [address] [id number]- 6283 Nov, [facility] [place] [facility] [address] [id number] [place] 2277 Nov, [facility] [place] [facility] [address] [id number] [place] [address]- 7712 Oct, [facility] [place] [facility] [address] [id number] [place] [address]- 4097 Oct, [facility] [place] [facility] [address] [id number] [place] [address]- 3653 Oct, [facility] [place] [facility] [address] [id number] [place] [address]- 7162 Oct, [facility] [place] [facility] [address] [id number] [place] [address]- 0645 Sep, [facility] [place] [facility] [address] [id number] [place] [address]- 5952 Sep, [facility] [place] [facility] [address] [id number] [place] [address]- 0864 Sep, [facility] [place] [facility] [address] [id number] [place] [address]- 1461 Sep, [facility] [place] [facility] [address] [id number] [place] [address]- 8138 Aug, [facility] [place] [facility] [address] [id number] [place] [address]- 2669 Aug, [facility] [place] [facility] [address] [id number] [place] [address]- 6228 Jul, [facility] [place] [facility] [address] [id number] [place] [address]- 8256 Jul, [facility] [place] [facility] [address] [facility] [id number] [place] [address]- 5097 Jun, [facility] [place] [facility] [address] [id number] [place] [address]- 6165 Jun, [facility] [place] [facility] [address] [id number] [place] [address]- 8038 25 May, 2013 [facility] [address] [id number] [place] [address] 2546 25 May, 2013 [facility] [address] [id number] [place] [address] 2546 24 May, 2013 [facility] [address] [id number] [place] [address] 2546 24 May, 2013 [facility] [address] [id number] [place] [address] 2546 16 May, 2013 [facility] [address] [id number] [place] [address]- 9724 16 May, 2013 [facility] [address] [id number] [place] [address]- 3792 15 May, 2014 [facility] [address] [id number] [place] [address]- 6559 15 May, 2013 [facility] [address] [id number] [place] [address]- 0826 02 May, 2014 [facility] [address] [id number] [place] [address]- 7169 02 May, 2014 [facility] [address] [id number] [place] [address]- 5372 Apr, [facility] [place] [facility] [address] [id number] [place] [address]- 254 Apr, [facility] [address] [id number] [place] [address]- 2549 Apr, [facility] [place] [facility] [address] [id number] [place] [address]- 0040 Apr, [facility] [address] [id number] [place] [address]- 6362 Apr, [facility] [address] [id number] [place] [address]- 1488 Apr, IMMUNIZATIONS No Known Immunizations SOCIAL HISTORY Never Assessed REASON FOR VISIT Controlled Med Refill PLAN OF CARE VITAL SIGNS MEDICATIONS Medication Instructions Dosage Frequency Start Date End Date Duration Status Hydrocodone-Acetaminophen 10-325 MG Orally 4 times a day 1 tablet as needed 6h January, 28 days Active RESULTS No Results PROCEDURES [...]
--- OUTSIDE RECORDS SUMMARY | 2018-08-28 09:57 | XMS REPORT ---
Author Author MARIA INES LEAL Organization [facility] Address [address] [place] [address] Care Team Providers Care Transportation Escort Name Role Phone MARIA INES LEAL Unavailable PROBLEMS Type Condition ICD9-CM Code QWQ73-CM Code Onset Dates Condition Status SNOMED Code Problem Acquired hypothyroidism E03.9 Active 130347060 Problem Other chronic pain G89.29 Active 70280394 Problem Arthritis M19.90 Active 8321580 Problem Major depressive disorder, single episode, moderate F32.1 Active 714586606 Problem Other chronic pain G89.29 Active 34201045 Problem Lumbago with sciatica, right side M54.41 Active 440814222031387 Problem Insomnia, unspecified type G47.00 Active 852649951 Problem Depression F32.9 Active 06105726 Problem Lumbago with sciatica, left side M54.42 Active 069281704 Problem Primary insomnia F51.01 Active 8239269 ALLERGIES No Known Allergies ENCOUNTERS Encounter Location Date Diagnosis [place] [id number] [place] [address] 44958- 6491 January, [place] [address] [address] Dec, Insomnia, unspecified type G47.00 [place] [address] [address]- [address] Dec, Other chronic pain G89.29 [place] [address] [address]- 90[address] Nov, Other chronic pain G89.29 ; Arthritis M19.90 ; Acquired hypothyroidism E03.9 ; Lumbago with sciatica, left side M54.42 ; Lumbago with sciatica, right side M54.41 and Major depressive disorder, single episode, moderate F32.1 [place] [id number] [address] Nov, Insomnia, unspecified type G47.00 [facility] [id number] [place] [address] 14104 -3441 Nov, Acute cystitis with hematuria N30.01 [facility] [id number] [place] [address] 05275- 8143 Oct, Insomnia, unspecified type G47.00 [facility] [id number] [place] [address] 96533- 5053 Sep, Insomnia, unspecified type G47.00 [place] [id number] [place] [address] 35659- 9697 Aug, Insomnia, unspecified type G47.00 [place] [id number] [place] [address] 73292- 8023 Jul, Insomnia, unspecified type G47.00 [place] [id number] [place] [address] 23340- 9948 Jul, [facility] [id number] [place] [address] 00838 -8997 Jul, Dysuria R30.0 and Acute cystitis with hematuria N30.01 [place] [id number] [place] [address] 69923- 9366 Jun, Insomnia, unspecified type G47.00 [place] [id number] [place] [address] 83313- 1247 Jun, Encounter for immunization Z23 [place] [id number] [place] [address] 18721- 7030 May, [place] [id number] [place] [address] 68715- 6721 May, Insomnia, unspecified type G47.00 ; Lumbago with sciatica, left side M54.42 ; Lumbago with sciatica, right side M54.41 and Other chronic pain G89.29 [facility] [id number] [place] [address] 90426 -8159 14 May, 2017 Acute non-recurrent maxillary sinusitis J01.00 [facility] [id number] [place] [address] 04115- 3033 Apr, Other chronic pain G89.29 [facility] [id number] [place] [address] 27450- 8194 Apr, Primary insomnia F51.01 and Pain in right leg M79.604 [facility] [id number] [place] [address] 78301- 9658 Mar, Other chronic pain G89.29 [facility] [id number] [place] [address] 24607- 7807 Feb, Other chronic pain G89.29 [facility] [id number] [place] [address] 65920- 3518 Feb, Depression F32.9 and Insomnia, unspecified type G47.00 [facility] [id number] [place] [address] 75374- 1518 Feb, Other chronic pain G89.29 [facility] [id number] [place] [address] 15199- 3900 January, Arthritis M19.90 [facility] [id number] [place] [address] 06423- 1673 January, [facility] [id number] [place] [address] 28186- 3478 January, Other chronic pain G89.29 [facility] [id number] [place] [address] 98734- 1225 Dec, Other chronic pain G89.29 [facility] [id number] [place] [address] 77571- 2715 Nov, Depression F32.9 [facility] [id number] [address] 77[address] Nov, Other chronic pain G89.29 [facility] [id number] [place] [address] 71753- 4196 Oct, Arthritis M19.90 [facility] [id number] [place] [address] 72529- 4425 Aug, [facility] [id number] [place] [address] 38917- 6970 Aug, [facility] [id number] [place] [address] 10996- 1181 Jul, Acquired hypothyroidism E03.9 [facility] [id number] [place] [address] 30283- 8860 Jul, [facility] [id number] [place] [address] 03284- 4889 Jul, [facility] [id number] [place] [address] 48694- 7689 Jul, [facility] [id number] [place] [address] 22365- 0132 Jun, [facility] [id number] [place] [address] 83680- 1214 Jun, Encounter for immunization Z23 [facility] [id number] [place] [address] 31379- 0820 30 May, 2016 [facility] [id number] [place] [address] 21392- 0867 May, [facility] [id number] [place] [address] 11300 -4021 May, Acute non-recurrent maxillary sinusitis J01.00 and Bilateral acute serous otitis media, recurrence not specified H65.03 [facility] [address] [address] 16 May, 2016 Rheumatoid arthritis 714.0 and Osteoarthritis, unspecified osteoarthritis type, unspecified site M19.90 [facility] [address] May, [facility] [address] [address]- 8796 Apr, [facility] [address] [address] Apr, OAB (overactive bladder) N32.81 ; Encounter for well woman exam with routine gynecological exam Z01.419 and Encounter for screening mammogram for breast cancer Z12.31 [facility] [address], [place] [address]- 2171 Apr, [facility] [id number] [address]- 0876 Mar, [facility] [address], [place] [address]- 2892 Feb, Acquired hypothyroidism E03.9 [facility] [address], [place] [address]- 8873 Feb, [facility] [address] [address]- 1588 January, [facility] [address], [place] [address]- 8664 January, [facility] [address], [place] [address]- 5806 Dec, [facility] [id number] [address]- 8318 Nov, [facility] [address] [address]- 4516 Oct, [facility] [address] [facility] [id number] [address] Sep, Acquired hypothyroidism E03.9 [facility] [address] [address]- 7993 Aug, Acquired hypothyroidism E03.9 ; Hiatal hernia K44.9 and Lumbar neuritis M54.16 [facility] [id number]- [address]75 Jul, [facility] [address] 01000- 4482 Jul, Major depressive disorder, single episode, moderate F32.1 [place] [address] 26283- 5411 Jul, Acquired hypothyroidism E03.9 [place] [address] 03518- 6144 Jun, Major depressive disorder, single episode, moderate F32.1 [place] [address] 55004- 1459 Jun, [facility] [address] 19606- 7625 Jun, Depression F32.9 ; Irritable bowel syndrome with diarrhea K58.0 and Other chronic pain G89.29 [place] [address] 38001- 4304 Jun, Family history of pinworm infection Z83.1 [place] [id number] [place] [address] 84398- 9747 Jun, Acquired hypothyroidism E03.9 [place] [address] 24078- 5167 Jun, Unspecified hypothyroidism 244.9 [place] [id number] [place] [address] 15629- 2125 Jun, [place] [id number]- 1304 May, Unspecified hypothyroidism 244.9 [place] [id number] [place] [address] 44445- 4305 May, [place] [address] [facility] [id number] [place] [address]- 7650 Apr, [facility] [address] [facility] [id number] [place] [address]- 1268 Mar, [facility] [address] [facility] [id number] [place] [address]- 0878 Feb, Paronychia 681.9 and Hypothyroidism 244.9 [facility] [address] [facility] [id number], [place] [address]- 3485 January, [facility] [address] [facility] [id number] [place] [address]- 4428 Dec, [facility] [address], [place] [address]- 0707 Dec, [facility] [address], [place] [address]- 1391 Nov, [facility] [place] [facility] [id number] [address]- 0592 Nov, [facility] [id number] [place] [address]- 1935 Nov, [facility] [place] [facility] [id number] [place] [address]- 8614 Nov, [facility] [address], [place] [address]- 2204 Oct, [facility] [place] [facility] [address] [facility] [id number], [place] [address]- 2365 Oct, [facility] [place] [facility] [address] [facility] [id number] [place] [address]- 6780 Oct, [facility] [place] [facility] [address] [facility] [id number] [place] [address]- 5845 Oct, [facility] [place] [facility] [id number] [place] [address]- 8405 Sep, [facility] [place] [facility] [address] [id number] [place] [address]- 6410 Sep, [facility] [place] [facility] [address] [id number] [place] [address]- 0748 Sep, [facility] [place] [facility] [address] [id number] [place] [address]- 2496 Sep, [facility] [place] [facility] [address] [id number] [place] [address]- 8195 Aug, [facility] [place] [facility] [address] [id number] [place] [address]- 8232 Aug, [facility] [place] [facility] [address] [id number] [place] [address]- 4419 Jul, [facility] [place] [facility] [address] [id number] [place] [address]- 6263 Jul, [facility] [place] [facility] [address] [id number] [place] [address]- 5231 Jun, [facility] [place] [facility] [address] [id number] [place] [address]- 3742 Jun, [facility] [place] [facility] [address] [id number] [place] [address]- 2294 25 May, 2014 [facility] [place] [facility] [address] [id number] [place] [address]- 1824 25 May, 2014 [facility] [place] [facility] [address] [id number] [place] [address]- 8469 24 May, 2014 [facility] [place] [facility] [address] [id number] [place] [address]- 2543 24 May, 2013 [facility] [place] [facility] [address] [id number] [place] [address]- 3454 16 May, 2014 [facility] [place] [facility] [address] [id number] [place] [address]- 2546 16 May, 2013 [facility] [place] [facility] [address] [id number] [place] [address]- 2548 May, [facility] [address] [facility] [id number], [place] [address]- 6443 May, [facility] [address] [facility] [id number][place] [address]- 3002 May, [facility] [address] [facility] [id number], [place] [address]- 7826 May, [facility] [address] [facility] [id number], [place] [address]- 3412 Apr, [facility] [address] [facility] [id number], [place] [address]- 2150 Apr, [facility] [address] [facility] [id number], [place] [address]- 9667 Apr, [facility] [address], [place] [address]- 8435 Apr, [facility] [address] [address]- 8519 Apr, [facility] [id number], [place] [address]- 4799 Apr, IMMUNIZATIONS No Known Immunizations SOCIAL HISTORY Never Assessed REASON FOR VISIT Other PLAN OF CARE VITAL SIGNS MEDICATIONS Medication Instructions Dosage Frequency Start Date End Date Duration Status Ditropan XL 5 mg Orally Once a [...]
--- OUTSIDE RECORDS SUMMARY | 2018-08-28 09:57 | XMS REPORT | Continuity of Care Document ---
Author Author [facility] Organization [facility] Address Unknown Phone Unavailable Care Team Providers Care Flower Shop Laborer/Designer Name Role Phone [place] BLANTON DO PP Insurance Providers Payer Name Policy Number Subscriber Name Relationship [facility] [id number] Yu Pal 01 Self / Same As Patient Advance Directives Directive Response Recorded Date Advance Directives N 02/20/13 7:41am Health Care Power of Pathology Secretary/Transcriptionist N 02/20/13 7:41am Organ Donor Y 02/20/13 7:41am Problems No Known Problems or Medical conditions. Family History History Response Recorded Date/Time Hx Family Cancer N 08/20/09 1:39pm Allergies, Adverse Reactions, Alerts Allergen Type Severity Reaction Last Updated No Known Allergies Allergy Unknown 11/14/07 Medications Medication Dose Units Route Sig Qty Days Pantoprazole Sodium (Protonix) 60 Mg PO DAILY Estradiol (Estrace) 1 Mg PO Levothyroxine Sodium (Synthroid) 1 Each PO DAILY [Hormone Replacement] Response Recorded Date/Time Status not known Unknown Results Test Date Result Interp. Ref. Range Alanine Aminotransferase (ALT/SGPT) August 14, 2009 9: 45am 34 U/L N 30-65 Albumin August 14, 2009 9:45am 3.6 G/ DL N 3.4-5.0 Alkaline Phosphatase August 14, 2009 9:45am 165 U/L H 50-136 Aspartate Amino Transf (AST/SGOT) August 14, 2009 9:45am 13 U/L L 15-37 BUN/Creatinine Ratio August 21, 2009 6:30am 9 - Basophils # (Auto) August 21, 2009 6:30am 0.0 10^3/uL N 0.0-0.1 Basophils (%) (Auto) August 21, 2009 6:30am 0 % N 0-10 Blood Urea Nitrogen August 21, 2009 6:30am 7 MG/DL N 7-18 Calcium Level September 02, 2009 3:35pm 8.7 MG/DL N 8.5-10.1 Carbon Dioxide Level August 21, 2009 6:30am 29 MMOL/L N 21-32 Chloride Level August 21, 2009 6:30am 107 MMOL/L N 101-110 Creatinine August 21, 2009 6:30am 0.8 MG/DL N 0.6-1.3 Eosinophils # (Auto) August 21, 2009 6:30am 0.0 10^3/uL N 0.0-0.3 Eosinophils (%) (Auto) August 21, 2009 6:30am 0 % N 0-10 Glucose Level August 21, 2009 6:30am 90 MG/DL N 70-126 Hematocrit August 21, 2009 6:30am 35 % N 35-52 Hemoglobin August 21, 2009 6:30am 12.2 G/DL N 11.5-16.0 Lymphocytes # (Auto) August 21, 2009 6:30am 1.2 X 10^3 N 1.0-4.0 Lymphocytes (%) (Auto) August 21, 2009 6:30am 15 % N 12-44 Magnesium Level August 21, 2009 6:30am 1.6 MG/DL L 1.8-2.4 Mean Corpuscular Hemoglobin August 21, 2009 6:30am 31 PG N 25-34 Mean Corpuscular Hemoglobin Concent August 21, 2009 6: 30am 35 G/DL N 32-36 Mean Corpuscular Volume August 21, 2009 6:30am 88 FL N 80-99 Mean Platelet Volume August 21, 2009 6:30am 9.3 FL N 7.4-10.4 Monocytes # (Auto) August 21, 2009 6:30am 0.5 X 10^3 N 0.0-1.0 Monocytes (%) (Auto) August 21, 2009 6:30am 6 % N 0-12 Neutrophils # (Auto) August 21, 2009 6:30am 6.5 X 10^3 N 1.8-7.8 Neutrophils (%) (Auto) August 21, 2009 6:30am 79 % H 42-75 Phosphorus Level September 02, 2009 3:35pm 2.9 MG/DL N 2.5-4.9 Platelet Count August 21, 2009 6:30am 193 10^3/uL N 130-400 Potassium Level August 21, 2009 6:30am 3.9 MMOL/L N 3.6-5.0 Red Blood Count August 21, 2009 6:30am 3.98 10^6/uL L 4.35-5.85 Red Cell Distribution Width August 21, 2009 6:30am 12.1 % N 10.0-14.5 Sodium Level August 21, 2009 6:30am 142 MMOL/L N 135-145 Total Bilirubin August 14, 2009 9:45am 0.3 MG/DL N 0.0-1.0 Total Protein August 14, 2009 9:45am 7.5 G/DL N 6.4-8.2 Urine Bacteria July 16, 2008 5:50pm Few H - Urine Bilirubin July 16, 2008 5:50pm Negative - Urine Calcium Oxalate Crystals July 16, 2008 5:50pm Large H - Urine Casts July 16, 2008 5:50pm None - Urine Clarity July 16, 2008 5:50pm Slightly cloudy - Urine Color July 16, 2008 5:50pm Yellow - Urine Crystals July 16, 2008 5:50pm Present H - Urine Culture Indicated July 16, 2008 5:50pm Yes - Urine Glucose (UA) July 16, 2008 5:50pm Negative - Urine Ketones July 16, 2008 5:50pm Negative - Urine Leukocyte Esterase July 16, 2008 5:50pm 2+ H - Urine Mucus July 16, 2008 5:50pm Negative - Urine Nitrite July 16, 2008 5:50pm Negative - Urine Test November 14, 2007 7:57am Negative - Urine Protein July 16, 2008 5:50pm Negative - Urine RBC July 16, 2008 5:50pm None /HPF - Urine Specific [place] July 16, 2008 5:50pm 1.020 - Urine Squamous Epithelial Cells July 16, 2008 5:50pm 2-5 - Urine Urobilinogen July 16, 2008 5:50pm Normal MG/DL - Urine WBC July 16, 2008 5:50pm 10-25 /HPF H - Urine pH July 16, 2008 5:50pm 6.0 - White Blood Count August 21, 2009 6:30am 8.3 10^3/uL N 4.3-11.0 Estimat Glomerular Filtration Rate August 14, 2009 9:45am > 60 - Urine RBC (Auto) July 16, 2008 5:50pm Negative - Procedures Procedure Code Date ASSIST VAG HYSTER(LAVH) 68.51 11/14/07 OTH REMOVE BOTH OVARIES/TUBES 65.61 11/13 CYSTOCEL/RECTOCEL REPAIR 70.50 11/14/07 CUL-DE-SAC OPERATION NEC 70.92 11/14/07 URIN INCONTIN REPAIR NEC 59.79 11/14/07 UPPER GI ENDOSCOPY BIOPSY 61068 07/09/09 COMPLETE THYROIDECTOMY 06.4 08/20/09 LESION REMOVAL COLONOSCOPY 29850 MRSA Screen 08/14/09 Urine Culture 07/16/08 Encounters Encounter Location Date/Time Discharged Inpatient [facility] 12: 00am Departed Emergency Room [facility] 12 :00am
--- OUTSIDE RECORDS SUMMARY | 2018-08-28 09:57 | XMS REPORT ---
Author Author MARIA INES LEAL [facility] Address [address] [place] [address] Care Team Providers Care Air Tool Operator Name Role Phone MARIA INES LEAL Unavailable PROBLEMS Type Condition ICD9-CM Code [id number] Code Onset Dates Condition Status SNOMED Code Problem Acquired hypothyroidism E03.9 Active 203068124 Problem Other chronic pain G89.29 Active 50469653 Problem Arthritis M19.90 Active 0263764 Problem Major depressive disorder, single episode, moderate F32.1 Active 171363052 Problem Other chronic pain G89.29 Active 69612534 Problem Lumbago with sciatica, right side M54.41 Active 573205015469183 Problem Insomnia, unspecified type G47.00 Active 711652862 Problem Depression F32.9 Active 84976128 Problem Lumbago with sciatica, left side M54.42 Active 682156821 Problem Primary insomnia F51.01 Active 6715282 ALLERGIES No Known Allergies SOCIAL HISTORY Never Assessed PLAN OF CARE VITAL SIGNS Height 63 in 2016-11-23 Weight 154.3 lbs 2016-11-23 Temperature 98.2 degrees Fahrenheit 2016-11-23 Heart Rate 96 bpm 2016-11-23 Respiratory Rate 20 2016-11-23 BMI 27.33 kg/m2 2016-11-23 Blood pressure systolic 157 mmHg 2016-11-23 Blood pressure diastolic 90 mmHg 2016-11-23 MEDICATIONS Medication Instructions Dosage Frequency Start Date End Date Duration Status Myrbetriq 25 MG Orally Once a day 1 tablet 24h 30 Active Meloxicam 7.5 MG Orally 2 times a day 1 tablet 12h Oct, Mar, 30 day(s) Active Levothyroxine Sodium 100 MCG TAKE ONE TABLET BY MOUTH ONCE DAILY Jun 90 Active Hydrocodone-Acetaminophen 10-325 MG Orally 4 times a day 1 tablet as needed 6h Nov, Active RESULTS No Results PROCEDURES No Known [...]
--- OUTSIDE RECORDS SUMMARY | 2018-08-28 09:57 | XMS REPORT | Continuity of Care Document ---
Author Author [facility] Address Unknown Phone Unavailable Allergies Active Description Code Type Severity Reaction Onset Reported/Identified Relationship to Patient Clinical Status Yes NKANo Known Allergies NKA Miscellaneous Allergy Unknown N/A 11/14/2007 Medications There is no data. Problems Date Dx Coded Attending Type Code Diagnosis Diagnosed By 05/30/2010 Ot 564.00 UNSPEC CONSTIPATION 05/30/2010 Ot 569.0 ANAL RECTAL POLYP 05/30/2010 Ot 578.9 GASTROINTEST HEMORR NOS 02/20/2013 ASTRID SCOTT, KIRK Mcarthur Ot 530.11 REFLUX ESOPHAGITIS 02/20/2013 ASTRID SCOTT, KIRK Mcarthur Ot 535.50 UNSP GASTRITIS GASTRODUODENITIS W/O ME 02/20/2013 ASTRID SCOTT, KIRK Mcarthur Ot 553.3 DIAPHRAGMATIC HERNIA 02/20/2013 ASTRID SCOTT, KIRK Mcarthur Ot V12.72 PERSONAL HISTORY OF COLONIC POLYPS 02/20/2013 ASTRID SCOTT, KIRK Mcarthur Ot V58.69 OTH MED,LT,CURRENT USE 04/18/2014 MARIA INES LEAL APRN 244.9 UNSPECIFIED ACQUIRED HYPOTHYROIDISM 04/18/2014 MARIA INES LEAL APRN 714.0 RHEUMATOID ARTHRITIS 04/18/2014 MARIA INES LEAL APRN 244.9 UNSPECIFIED ACQUIRED HYPOTHYROIDISM 04/18/2014 AMRIA INES LEAL APRN 714.0 RHEUMATOID ARTHRITIS 04/18/2014 MARIA INES LEAL APRN 244.9 UNSPECIFIED ACQUIRED HYPOTHYROIDISM 04/18/2014 MARIA INES LEAL APRN 714.0 RHEUMATOID ARTHRITIS 04/18/2014 MARIA INES LEAL APRN 244.9 UNSPECIFIED ACQUIRED HYPOTHYROIDISM 04/18/2014 MARIA INES LEAL APRN 714.0 RHEUMATOID ARTHRITIS 04/18/2014 MARIA INES LEAL APRN 244.9 UNSPECIFIED ACQUIRED HYPOTHYROIDISM 04/18/2014 MARIA INES LEAL APRN 714.0 RHEUMATOID ARTHRITIS 09/21/2014 MARIA INES LEAL APRN 278.00 OBESITY 09/21/2014 MARIA INES LEAL APRN 780.79 FATIGUE 09/21/2014 MARIA INES LEAL APRN 788.1 DYSURIA 09/21/2014 MARIA INES LEAL APRN 278.00 OBESITY 09/21/2014 MARIA INES LEAL APRN 780.79 FATIGUE 09/21/2014 MARIA INES LEAL APRN 788.1 DYSURIA 01/07/2016 MARILY CAMPOS MD (DDU) Ot Z02.71 ENCOUNTER FOR DISABILITY DETERMINATION 01/12/2016 MARILY CAMPOS MD (DDU) Ot Z02.71 ENCOUNTER FOR DISABILITY DETERMINATION 02/29/2016 ASTRID SCOTT, KIRK Mcarthur Ot V72.84 EXAM PRE-OPERATIVE NOS 02/29/2016 MARILY CAMPOS MD (DDU) Ot Z02.71 ENCOUNTER FOR DISABILITY DETERMINATION 02/29/2016 SPENCER BOLDEN DO B Ot E03.9 HYPOTHYROIDISM, UNSPECIFIED 02/29/2016 SPENCER BOLDEN DO B Ot K80.00 CALCULUS OF GALLBLADDER W ACUTE CHOLECYS 02/29/2016 SPENCER BOLDEN DO B Ot Z79.899 OTHER RACING MANAGER (CURRENT) DRUG THERAPY 03/02/2016 MARILY CAMPOS MD (DDU) Ot Z02.71 ENCOUNTER FOR DISABILITY DETERMINATION 03/06/2016 KIMI DE ANDA SPENCER B Ot E03.9 HYPOTHYROIDISM, UNSPECIFIED 03/06/2016 SPENCER BOLDEN DO B Ot K80.00 CALCULUS OF GALLBLADDER W ACUTE CHOLECYS 03/06/2016 SPENCER BOLDEN DO B Ot Z79.899 OTHER JAIL (CURRENT) DRUG THERAPY 03/24/2016 MARILY CAMPOS MD (DDU) Ot Z02.71 ENCOUNTER FOR DISABILITY DETERMINATION 03/24/2016 MARILY CAMPOS MD (DDU) Ot Z02.71 ENCOUNTER FOR DISABILITY DETERMINATION 04/16/2016 MARILY CAMPOS MD (DDU) Ot Z02.71 ENCOUNTER FOR DISABILITY DETERMINATION 04/23/2016 MARILY CAMPOS MD (DDU) Ot Z02.71 ENCOUNTER FOR DISABILITY DETERMINATION Procedures Code Description Performed By Performed On 06.4 08/20/2009 09906 ROUTINE VENIPUNCTURE 04/25/2014 63175 VITAMIN D 25-HYDROXY (D2,D3 , TOTAL) 04/25/2014 40261 TSH 04/25/2014 10319 CBC 04/25/2014 7142989 GFR CALC (RESULT ONLY) 04/25/2014 67485 CMP 04/25/2014 37713 LIPID PANEL 04/25/2014 01269 ROUTINE VENIPUNCTURE 05/28/2014 32065 TSH 05/28/2014 68252 UA LONG DIP 09/21/2014 Results Test Result Range TSH - 08/12/16 12:33 TSH 0.456 uIU/mL 0.450-4.500 CULTURE, URINE - 07/14/17 09:28 CULTURE, URINE, ROUTINE SEE NOTE NRG CULTURE, URINE - 11/21/17 14:36 CULTURE, URINE, ROUTINE SEE NOTE NRG TSH - 12/08/17 08:40 TSH 32.55 mIU/L 0.40-4.50 Encounters ACCT No. Visit Date/Time Discharge Status Pt. Type Provider Facility Loc./Unit Complaint [id number] 10/22/2014 10:14:00 10/22/2014 23:59:59 CLS Outpatient MARIA INES LEAL APRN [id number] 09/21/2014 15:05:00 09/21/2014 23:59:59 CLS Outpatient MARIA INES LEAL APRN [id number] 05/28/2014 08:26:00 05/28/2014 23:59:59 CLS Outpatient MARIA INES LEAL APRN [id number] 04/25/2014 08:09:00 04/25/2014 23:59:59 CLS Outpatient MARIA INES LEAL APRN [id number] 04/18/2014 11:35:00 04/18/2014 23:59:59 CLS Outpatient MARIA INES LEAL APRN [id number] 02/29/2016 08:05:00 02/29/2016 14:00:00 DIS Outpatient SPENCER BOLDEN DO Via [facility] VOMITING,ABD PAIN [id number] 01/06/2016 10:06:00 01/06/2016 23:59:59 CLS Outpatient MARILY CAMPOS MD (DDU) Via [facility] RAD DDU [id number] 02/20/2013 07:01:00 02/20/2013 11:25:00 DIS Outpatient KIRK RESENDIZ MD [facility] VOMITING,HISTORY OF POLYPS [id number] 02/15/2013 07:19:00 02/15/2013 23:59:59 CLS Outpatient KIRK RESENDIZ MD [facility] PREOP [id number] 08/28/2018 09:43:00 ACT Emergency ARIELLA SCOTT, GATITO Arias [facility] ER ABD PAIN,VOMITING [id number] 05/30/2010 08:11:00 Document Registration [id number] 08/20/2009 05:54:00 Document Registration [id number] 01/28/2018 13:40:00 01/28/2018 23:59:59 [facility] Outpatient MARIA INES LEAL APRN [facility] [id number] 12/08/2017 08:00:00 Document Registration [id number] 11/21/2017 14:10:00 Document Registration [id number] 07/14/2017 08:35:00 Document Registration [id number] 08/13/2016 08:44:00 Document Registration
--- OUTSIDE RECORDS SUMMARY | 2018-08-28 09:57 | XMS REPORT ---
Author Author MARIA INES LEAL Organization [facility] Address [address] [place] [address] Care Team Providers Care Drosophere Operator Name Role Phone MARIA INES LEAL Unavailable PROBLEMS Type Condition ICD9-CM Code [id number] Code Onset Dates Condition Status SNOMED Code Problem Acquired hypothyroidism E03.9 Active 820277640 Problem Major depressive disorder, single episode, moderate F32.1 Active 053951623 Assessment Acquired hypothyroidism E03.9 Jul, Active 440751252 ALLERGIES Unknown Allergies SOCIAL HISTORY No smoking Hx information available PLAN OF CARE VITAL SIGNS MEDICATIONS Unknown Medications RESULTS No Results PROCEDURES Procedure Date Ordered Related Diagnosis Body Site LAB NOT BILLED BY [facility] Aug 12, 2016 VENIPHERNESTO, ROUTINE* Aug 12, 2016 IMMUNIZATIONS No Known Immunizations
[2018-08-28] MEDS ORDERED: NS IV 1000 ML 1,000 ML IV ONE (11:01)
[2018-08-28 11:06] LABS: CLARITY,URINE SLIGHTLY CLOUDY; COLOR,URINE YELLOW; GLUCOSE, URINE (UA) NEGATIVE (NEGATIVE); KETONES,URINE 4+ (NEGATIVE); LEUKOCYTE ESTERASE ,URINE 3+ (NEGATIVE); NITRITE,URINE NEGATIVE (NEGATIVE); PH,URINE 8 (5-9); PROTEIN,URINE 2+ (NEGATIVE); UROBILINOGEN,URINE 1 MG/DL (NORMAL)
[2018-08-28 11:06] LABS: BASOPHILS % (AUTO) 0 % (0-10); EOSINOPHILS % (AUTO) 0 % (0-10); HEMATOCRIT 45 % (35-52); HEMOGLOBIN 15.7 G/DL (11.5-16.0); LYMPHOCYTES # (AUTO) 1.2 X 10^3 (1.0-4.0); LYMPHOCYTES % (AUTO) 13 % (12-44); MEAN CORPUSCULAR HEMOGLOBIN 31 PG (25-34); MEAN CORPUSCULAR HGB CONC 35 G/DL (32-36); MEAN CORPUSCULAR VOLUME 88 FL (80-99); MEAN PLATELET VOLUME 9.7 FL (7.4-10.4); MONOCYTES # (AUTO) 0.7 X 10^3 (0.0-1.0); MONOCYTES % (AUTO) 7 % (0-12); NEUTROPHILS # (AUTO) 7.5 X 10^3 (1.8-7.8); NEUTROPHILS % (AUTO) 80 % (42-75); PLATELET COUNT 298 10^3/uL (130-400); RED BLOOD COUNT 5.14 10^6/uL (4.35-5.85); RED CELL DISTRIBUTION WIDTH 12.6 % (10.0-14.5); WHITE BLOOD COUNT 9.4 10^3/uL (4.3-11.0)
[2018-08-28] MEDS ORDERED: NS 100 ML (IVPB) BAG IV ONE (11:15)
[2018-08-28] MEDS ORDERED: RECEIVED CONTRAST (Hold Metformin) IV SCH (11:15)
[2018-08-28] MEDS ORDERED: IOHEXOL 350 MG/ML 100 ML (OMNIPAQUE 350) VIAL IV ONE (11:15)
[2018-08-28] MEDS ORDERED: ONDANSETRON 4 MG/2 ML (SDV) Z0FRAN IVP ONE (11:15)
[2018-08-28] MEDS ORDERED: fentaNYL INJECTION 100 MCG/2 ML AMP IVP ONE ×2 (11:15→12:30)
[2018-08-28 11:16] LABS: BACTERIA,URINE NEGATIVE /HPF; BILIRUBIN,URINE 1+ (NEGATIVE); SQUAMOUS EPITHELIAL CELL,UR 0-2 /HPF; WBC,URINE 25-50 /HPF
[2018-08-28 11:21] LABS: ALANINE AMINOTRANSFERASE 15 U/L (0-55); ALBUMIN 4.6 GM/DL (3.2-4.5); ALKALINE PHOSPHATASE 108 U/L (40-136); AMYLASE 75 U/L (25-125); BILIRUBIN,TOTAL 0.9 MG/DL (0.1-1.0); BUN/CREATININE RATIO 17; CALCIUM 9.2 MG/DL (8.5-10.1); CARBON DIOXIDE 28 MMOL/L (21-32); CHLORIDE 100 MMOL/L (98-107); CREATININE SERUM 1.04 MG/DL (0.60-1.30); GFR ESTIMATED 55; GLUCOSE 128 MG/DL (70-105); LIPASE 61 U/L (8-78); POTASSIUM 3.6 MMOL/L (3.6-5.0); SODIUM 143 MMOL/L (135-145)
--- NOTE | 2018-08-28 11:52 | Diagnostic Imaging Report ---
PROCEDURE: CT abdomen and pelvis with contrast. TECHNIQUE: Multiple contiguous axial images were obtained through the abdomen and pelvis after administration of intravenous contrast. INDICATION: Upper abdominal pain with nausea and vomiting for 3 days. COMPARISON: 02/19/2016. DISCUSSION: The lung bases are well-aerated. Normal heart size. No pleural or pericardial fluid. The gallbladder is surgically absent. Mild prominence of the common bile duct is likely due to previous cholecystectomy. Mild fatty infiltration of liver is noted. The pancreas, stomach, spleen, and adrenal glands are unremarkable. Benign 1 cm cyst noted within the superior right kidney. No renal stone or hydronephrosis. The aorta is normal in caliber. Urinary bladder is mostly decompressed. The uterus is surgically absent. Thickwalled fluid-filled small bowel loops are noted diffusely, likely nonspecific enteritis, infectious versus inflammatory. Colon is decompressed. No obstruction, pneumatosis, or pneumoperitoneum. Trace ascites is noted within the pelvis, likely physiologic. No abnormally enlarged lymph nodes identified. No osseous abnormality. IMPRESSION: 1. Thickwalled nonobstructive small bowel loops, nonspecific enteritis. Dictated by: Dictated on workstation # [id number]
--- NOTE | 2018-08-28 12:30 | ED Abdominal Pain ---
General Chief Complaint: Abdominal/GI Problems Stated Complaint: ABD PAIN,VOMITING Nursing Triage Note: ARRIVED VIA AMB TO ROOM 09. COMPLAINS OF HEADACHE, ABD PAIN, N/V/D SINCE WEDNESDAY. Sepsis Screen: No Definite Risk Source of Information: Patient Exam Limitations: No Limitations History of Present Illness Date Seen by Provider: Aug 28, 2018 Time Seen by Provider: 11:05 Initial Comments Patient is a 57-year-old female who presents to the emergency room with complaints of nausea vomiting diarrhea for the past 3 days, headaches, abdominal pain. She denies any fevers, lightheadedness, chest pain. She reports that she's been unable to keep anything down throughout this time. Timing/Duration: 2-3 Days Severity/Quality: Cramping Location: Generalized Abdomen Radiation: No Radiation Associated Symptoms: Nausea/Vomiting Allergies and Home Medications Allergies Coded Allergies: NKANo Known Allergies (Verified Allergy, Unknown, 11/14/07) Home Medications Ciprofloxacin HCl 500 Mg Tablet, 500 MG PO BID Prescribed by: MARILYN MCKAY on 08/28/18 1235 Levothyroxine Sodium 88 Mcg Tablet, 1 EACH PO DAILY, (Reported) Ondansetron HCl 4 Mg Tab, 4 MG PO Q4H PRN for NAUSEA/VOMITING-1ST LINE Prescribed by: MARILYN MCKAY on 08/28/18 1235 Phenazopyridine HCl 100 Mg Tablet, 100 MG PO TID Prescribed by: MARILYN MCKAY on 08/28/18 1235 Patient Home Medication List Home Medication List Reviewed: Yes Review of Systems Review of Systems Constitutional: no symptoms reported, see HPI Gastrointestinal: See HPI, Nausea, Vomiting Psychiatric/Neurological: See HPI, Headache All Other Systems Reviewed Negative Unless Noted: Yes Past Kcaptnc-Eoytqg-Icoshf Hx Past Med/Social Hx: Reviewed Nursing Past Med/Soc Hx Patient Social History Alcohol Use: Denies Use Recreational Drug Use: No Smoking Status: Former Smoker Recent Foreign Travel: No Contact w/Someone Who Travel: No Recent Infectious Disease Expo: No Recent Hopitalizations: Yes (TUBAL, CHILDBIRTH) Seasonal Allergies Seasonal Allergies: No Past Medical History Surgeries: Yes (TUBAL LIGATION,bladder sling,hyst) Bladder Surgery, Hysterectomy, Thyroidectomy, Tubal Ligation Respiratory: No Cardiac: No Neurological: No Reproductive Disorders: No Sexually Transmitted Disease: No Gastrointestinal: Yes Hiatal Hernia Musculoskeletal: Yes (BACK PAIN) Arthritis, Rheumatoid Arthritis, Chronic Back Pain Endocrine: Yes Hypothyroidsim Cancer: No Psychosocial: No Blood Disorders: No Family Medical History Reviewed Nursing Family Hx Heart Disease, Hypertension Physical Exam Vital Signs Vital Signs - First Documented 08/28/18 09:50 Temp 98.2 Pulse 109 Resp 16 B/P (MAP) 112/81 (91) Pulse Ox 97 O2 Delivery Room Air Capillary Refill : Less Than 3 Seconds Height/Weight/BMI Height: 5'3.00" Weight: 130lbs. oz. 58.503023bh; 24.96 BMI Method:Stated General Appearance: WD/WN, no apparent distress HEENT: PERRL/EOMI, TMs normal Respiratory: chest non-tender, lungs clear, normal breath sounds, no respiratory distress, no accessory muscle use Cardiovascular: normal peripheral pulses, regular rate, rhythm, no edema, no gallop, no JVD, no murmur Gastrointestinal: normal bowel sounds, soft, no organomegaly, no pulsatile mass , tenderness Extremities: normal capillary refill Neurologic/Psychiatric: alert, normal mood/affect, oriented x 3 Skin: normal color, warm/dry Progress/Results/Core Measures Results/Orders Lab Results Laboratory Tests Test 08/28/18 09:43 08/28/18 09:55 08/28/18 10:02 Range/Units Lab Scanned Report Referred Lab Report [id number] Urine Color YELLOW Urine Clarity SLIGHTLY CLOUDY Urine pH 8 5-9 Urine Specific [place] 1.010 L 1.016-1.022 Urine Protein 2+ H NEGATIVE Urine Glucose (UA) NEGATIVE NEGATIVE Urine Ketones 4+ H NEGATIVE Urine Nitrite NEGATIVE NEGATIVE Urine Bilirubin 1+ H NEGATIVE Urine Urobilinogen 1 NORMAL MG/DL Urine Leukocyte Esterase 3+ H NEGATIVE Urine RBC (Auto) NEGATIVE NEGATIVE Urine RBC NONE /HPF Urine WBC 25-50 H /HPF Urine Squamous Epithelial Cells 0-2 /HPF Urine Crystals NONE /LPF Urine Bacteria NEGATIVE /HPF Urine Casts NONE /LPF Urine Mucus NEGATIVE /LPF Urine Culture Indicated YES White Blood Count 9.4 4.3-11.0 10^3/uL Red Blood Count 5.14 4.35-5.85 10^6/uL Hemoglobin 15.7 11.5-16.0 G/DL Hematocrit 45 35-52 % Mean Corpuscular Volume 88 80-99 FL Mean Corpuscular Hemoglobin 31 25-34 PG Mean Corpuscular Hemoglobin Concent 35 32-36 G/DL Red Cell Distribution Width 12.6 10.0-14.5 % Platelet Count 298 130-400 10^3/uL Mean Platelet Volume 9.7 7.4-10.4 FL Neutrophils (%) (Auto) 80 H 42-75 % Lymphocytes (%) (Auto) 13 12-44 % Monocytes (%) (Auto) 7 0-12 % Eosinophils (%) (Auto) 0 0-10 % Basophils (%) (Auto) 0 0-10 % Neutrophils # (Auto) 7.5 1.8-7.8 X 10^3 Lymphocytes # (Auto) 1.2 1.0-4.0 X 10^3 Monocytes # (Auto) 0.7 0.0-1.0 X 10^3 Eosinophils # (Auto) 0.0 0.0-0.3 10^3/uL Basophils # (Auto) 0.0 0.0-0.1 10^3/uL Sodium Level 143 135-145 MMOL/L Potassium Level 3.6 3.6-5.0 MMOL/L Chloride Level 100 98-107 MMOL/L Carbon Dioxide Level 28 21-32 MMOL/L Anion Gap 15 H 5-14 MMOL/L Blood Urea Nitrogen 18 7-18 MG/DL Creatinine 1.04 0.60-1.30 MG/DL Estimat Glomerular Filtration Rate 55 BUN/Creatinine Ratio 17 Glucose Level 128 H 70-105 MG/DL Calcium Level 9.2 8.5-10.1 MG/DL Corrected Calcium 8.5-10.1 MG/DL Total Bilirubin 0.9 0.1-1.0 MG/DL Aspartate Amino Transf (AST/SGOT) 17 5-34 U/L Alanine Aminotransferase (ALT/SGPT) 15 0-55 U/L Alkaline Phosphatase 108 40-136 U/L Total Protein 8.0 6.4-8.2 GM/DL Albumin 4.6 H 3.2-4.5 GM/DL Amylase Level 75 25-125 U/L Lipase 61 8-78 U/L Micro Results Microbiology 08/28/18 Urine Culture - Final, Complete See Report My Orders Orders - MARILYN MCKAY Comprehensive Metabolic Panel (08/28/18 11:00) Lipase (08/28/18 11:00) Amylase (08/28/18 11:00) Ua Culture If Indicated (08/28/18 11:00) Saline Lock/Iv-Start (08/28/18 11:00) Cbc With Automated Diff (08/28/18 11:00) Ct Abdomen/Pelvis W (08/28/18 11:00) Saline Lock/Iv-Start (08/28/18 11:01) Ns Iv 1000 Ml (Sodium Chloride 0.9%) (08/28/18 11:01) Ondansetron Injection (Zofran Injectio (08/28/18 11:15) Fentanyl Injection (Sublimaze Injection (08/28/18 11:15) Iohexol Injection (Omnipaque 350 Mg/Ml 1 (08/28/18 11:15) Contrast Received (Contrast Received) (08/28/18 11:15) Ns (Ivpb) (Sodium Chloride 0.9% Ivpb Bag (08/28/18 11:15) Urine Culture (08/28/18 09:55) Fentanyl Injection (Sublimaze Injection (08/28/18 12:30) Medications Given in ED Vital Signs/I&O 08/28/18 08/28/18 09:50 12:41 Temp 98.2 Pulse 109 81 Resp 16 16 B/P (MAP) 112/81 (91) 123/74 (90) Pulse Ox 97 100 O2 Delivery Room Air Room Air Blood Pressure Mean: 91 Progress Progress Note : Time: 12:30 Progress Note I have seen and evaluated the patient. I have discussed laboratory and imaging studies with her. She is pain free at this time. She agrees with plan of care, plans for discharge, return precautions were given. Diagnostic Imaging Diagonstic Imaging: CT Plain Films/CT/US/NM/MRI: abdomen, pelvis Comments NAME: AMRIT DAWN [facility] REC#: [id number] PHYSICIAN: MARILYN MCKAY CC: MARILYN MCKAY; MARILU HAY MD Page 2 of 2 RADIOLOGY REPORT [facility]. [place], [place] CC: KIMBERLEY MCKAY DAVID A MD Page 1 of 1 RADIOLOGY REPORT NAME: AMRIT DAWN [facility] REC#: [id number] PT STATUS: DEP ER : 1960 PHYSICIAN: MARILYN MCKAY ADMIT DATE: 08/28/18/ER Signed Date of Exam: 08/28/18 CT ABDOMEN/PELVIS W PROCEDURE: CT abdomen and pelvis with contrast. TECHNIQUE: Multiple contiguous axial images were obtained through the abdomen and pelvis after administration of intravenous contrast. INDICATION: Upper abdominal pain with nausea and vomiting for 3 days. COMPARISON: 02/19/2016. DISCUSSION: The lung bases are well-aerated. Normal heart size. No pleural or pericardial fluid. The gallbladder is surgically absent. Mild prominence of the common bile duct is likely due to previous cholecystectomy. Mild fatty infiltration of liver is noted. The pancreas, stomach, spleen, and adrenal glands are unremarkable. Benign 1 cm cyst noted within the superior right kidney. No renal stone or hydronephrosis. The aorta is normal in caliber. Urinary bladder is mostly decompressed. The uterus is surgically absent. Thickwalled fluid-filled small bowel loops are noted diffusely, likely nonspecific enteritis, infectious versus inflammatory. Colon is decompressed. No obstruction, pneumatosis, or pneumoperitoneum. Trace ascites is noted within the pelvis, likely physiologic. No abnormally enlarged lymph nodes identified. No osseous abnormality. IMPRESSION: 1. Thickwalled nonobstructive small bowel loops, nonspecific enteritis. Dictated by: Dictated on workstation # [id number] Dict: 08/28/18 1147 Trans: 08/28/18 1552 Interpreted by: MARILU HAY MD Electronically signed by: MARILU HAY MD 08/28/18 1552 Reviewed: Reviewed by Mt Departure Impression Primary Impression: Urinary tract infection Additional Impression: Gastroenteritis Disposition: 01 HOME, SELF-CARE Condition: Stable/Unchanged Departure-Patient Inst. Decision time for Depature: 12:30 Referrals: [facility] (PCP/Family) Primary Care Physician Patient Instructions: Urinary Tract Infection, Adult (DC), Viral Gastroenteritis, Adult (DC) Add. Discharge Instructions: Take medications as directed. Clear liquid diet and advance as tolerated. Drink plenty of clear liquids to stay hydrated. Follow-up with [facility] within 1 week for recheck. Return back to the emergency room for any worsening symptoms or concerns as needed. All discharge instructions reviewed with patient and/or family. Voiced understanding. Scripts Phenazopyridine HCl (Pyridium) 100 Mg Tablet 100 MG PO TID for 2 Days, #6 TAB Prov: MARILYN MCKAY 08/28/18 Ondansetron HCl (Zofran) 4 Mg Tab 4 MG PO Q4H PRN for NAUSEA/VOMITING-1ST LINE, #14 TAB Prov: MARILYN MCKAY 08/28/18 Ciprofloxacin HCl (Cipro) 500 Mg Tablet 500 MG PO BID for 7 Days, #14 TAB Prov: MARILYN MCKAY 08/28/18 MARILYN MCKAY Aug 28, 2018 12:30
[2018-08-28] MEDS ORDERED: PHEN-639 PO (12:35)
[2018-08-28] MEDS ORDERED: CIPR-225 PO (12:35)
[2018-08-28] MEDS ORDERED: ONDN4T PO (12:35)
[2018-08-28 12:41] VITALS: BP 123/74
== END 2018-08-28 12:41 | disposition home or self-care (01) ==
LOC: EDUNIT# 09:42 → ER 09:43
DX: N39.0 Urinary tract infection, site not specified (principal); K52.9 Noninfective gastroenteritis and colitis, unspecified; M06.9 Rheumatoid arthritis, unspecified; E03.9 Hypothyroidism, unspecified; Z98.51 Tubal ligation status; Z82.49 Family history of ischemic heart disease and other diseases of the circulatory system; Z96.0 Presence of urogenital implants; Z90.710 Acquired absence of both cervix and uterus; Z90.89 Acquired absence of other organs; Z87.19 Personal history of other diseases of the digestive system
CPT/HCPCS: 36415; 74177; 80053; 81000; 82150; 83690; 85025; 87088

== ENCOUNTER 2019-09-01 06:21 | Outpatient (CLI) | payer MEDICARE, MEDICAID ==
[~2019-09-01] VITALS: Ht 157 cm; Wt 59.0 kg
[~2019-09-01 06:21] MED LIST changes: +CIPR-225 PO; +ONDN4T PO; +PHEN-639 PO
[2019-09-01] MEDS ORDERED: LEVO100T7 PO (12:34)
[2019-09-01] MEDS ORDERED: OXYB10TA6 PO (12:34)
[2019-09-01] MEDS ORDERED: HYDR-3820 PO (12:34)
== END 2019-09-01 12:37 | disposition home or self-care (01) ==
LOC: PREOP 06:21
PROVIDERS: ATTEND Internal Medicine
DX: Z01.818 Encounter for other preprocedural examination (principal)

== ENCOUNTER 2019-09-08 08:15 | Day surgery (SDC) | payer MEDICARE, MEDICAID ==
--- NOTE | 2019-08-31 09:14 | HISTORY AND PHYSICAL ---
DATE OF SERVICE: DATE OF ADMISSION: 09/08/2019. HISTORY OF PRESENT ILLNESS: The patient is a 58-year-old white female seen in the office on 08/30/[address] Gu for evaluation of dysphagia. She reports a several year history of dysphagia predominantly to solids that has gotten worse over the past month or two. She intermittently has regurgitation and states that she has lost about 30 pounds of weight over the past year. She denies melena or bright red blood per rectum. She reports history of irritable bowel with longstanding abdominal bloating following meals fluctuating between diarrhea and constipation with intermittent crampy abdominal discomfort aggravated by stress. The symptoms are unchanged. She denies any problems with sore throat or cough. PAST MEDICAL HISTORY: Other than IBS symptoms reportedly unremarkable. PAST SURGICAL HISTORY: She has a past history of tonsillectomy and adenoidectomy many years ago. In 2007 underwent total abdominal hysterectomy for uterine fibroids and irregular bleeding, at which time she also had vaginal sling for urinary incontinence and anterior and posterior repair. FAMILY HISTORY: Father was diagnosed with colon cancer at the age of 71, of other causes though she is not sure of the cause in his mid 70s. Mother in her early 80s of complications from stroke. The patient's last colonoscopy was 5 years ago at which time, procedure revealed no significant abnormalities, no polyps. Previous to that, she had had a history of polyps, it is unknown whether they were adenomatous or not. She also underwent EGD evaluation 5 years ago, at which time she had reported short hiatal hernia with grade I esophagitis, but no evidence for Genao's change. She was Helicobacter negative at that time. She had some mild streaking antral gastritis. No gastric polyposis was noted. REVIEW OF SYSTEMS: CONSTITUTIONAL: She denies night sweats, chills or fever, but does report significant weight loss around 30 pounds over the past year. CARDIOVASCULAR: She denies chest pain, syncope, presyncope, heart racing or history of any vascular procedure. PULMONARY: She denies shortness of breath, cough or chest pain. GASTROINTESTINAL: As noted in the HPI. PHYSICAL EXAMINATION: GENERAL: Reveals a pleasant normal weight white female in no acute distress. VITAL SIGNS: Blood pressure 120/88, heart rate 70 and regular. HEENT: Unremarkable now she is a Mallampati 2 oropharyngeal configuration. No posterior pharyngeal erythema or exudate is noted. NECK: Revealed no JVD, adenopathy or bruits. CHEST: Clear to auscultation. CARDIOVASCULAR: Reveals a regular rate and rhythm without murmur, S3 or S4. ABDOMEN: Soft, supple. Epigastric pain to palpation is noted without rebound or guarding. No mass or organomegaly is appreciated. Some bilateral lower quadrant discomfort to palpation. Bowel sounds are positive. No evidence for abdominal aortic aneurysm is noted. No bruits are appreciated. EXTREMITIES: Reveal no cyanosis, clubbing or edema. ASSESSMENT AND PLAN: The patient was set up for diagnostic EGD due to dysphagia, predominantly to solids with significant weight loss greater than 10% reported over the last year. Discussed strong likelihood of need for dilatation. As the patient is extremely anxious about the procedure, we will be doing under anesthesia. I thank you for the referral of this pleasant lady. Job ID: [id number] DocumentID: [id number] Dictated Date: 08/31/2019 08:03:32 Hat Measurer Date: 08/31/2019 09:13:09 Dictated By: BERNIE MEANS MD [facility]
[~2019-09-08] VITALS: Ht 157 cm; Wt 59.0 kg
[~2019-09-08 08:15] MED LIST changes: +LEVO100T7 PO; +OXYB10TA6 PO
[2019-09-08 08:20] VITALS: BP 123/74
[2019-09-08] MEDS ORDERED: LACTATED RINGERS 1,000 ML IV STA (08:22)
[2019-09-08] MEDS ORDERED: LACTATED RINGERS 1,000 ML IV ONE (08:26)
[2019-09-08] MEDS ORDERED: HURRICAINE EXT TUBE (BENZOCAINE) XX PRN (08:30)
[2019-09-08] MEDS ORDERED: LIDOCAINE JELLY 2% 6 ML SYRINGE MM PRN (08:30)
[2019-09-08] MEDS ORDERED: proPOfol 200 MG/20 ML (DIPRIVAN) VIAL IV ONE (08:58)
[2019-09-08] MEDS ORDERED: LIDOCAINE PF 2% 5 ML (XYLOCAINE) VIAL ONE (08:59)
[2019-09-08] MEDS ORDERED: MIDAZOLAM 2 MG/2 ML (VERSED) VIAL ONE (08:59)
[2019-09-08] MEDS ORDERED: fentaNYL INJECTION 100 MCG/2 ML AMP ONE (08:59)
[2019-09-08] MEDS ORDERED: LIDOCAINE JELLY 2% 6 ML SYRINGE ONE (09:44)
[2019-09-08 10:00] VITALS: BP 118/69
--- NOTE | 2019-09-08 10:04 | Pre-Op Note & Conscious Sedat ---
Pre-Operative Progress Note H&P Reviewed The H&P was reviewed, patient examined and no changes noted. Date H&P Reviewed: Sep 08, 2019 Time H&P Reviewed: 09:05 Conscious Sedation Pre-Proced ASA Score 2 For ASA 3 and 4: Consider anesthesia and medical clearance. Also, for patients with a history of failed moderate sedation consider anesthesia. Airway Lungs Heart ASA score ASA 1: a normal healthy patient ASA 2: a patient with a mild systemic disease (mid diabetes, controlled hypertension, obesity ASA 3: a patient with a severe systemic disease that limits activity (angina, COPD, prior Myocardial infarction) ASA 4: a patient with an incapacitating disease that is a constant threat to life (CHF, renal failure) ASA 5: a moribund patient not expected to survive 24 hrs. (ruptured aneurysm) ASA 6: a declared brain- patient whose organs are being harvested. For emergent operations, add the letter E after the classification Mallampati Classification Grade 1 Sedation Plan Analgesia, Amnesia, Plan communicated to team members, Discussed options with patient/fam, Discussed risks with patient/fam The patient is an appropriate candidate to undergo the planned procedure, sedation, and anesthesia. The patient immediately re-assessed prior to indication. BERNIE MEANS MD Sep 08, 2019 10:03
[2019-09-08 10:05] VITALS: BP 119/71
[2019-09-08 10:10] VITALS: BP 129/76
[2019-09-08 10:15] VITALS: BP 129/76
[2019-09-08 10:38] VITALS: BP 125/72
--- NOTE | 2019-09-08 13:11 | OPERATIVE REPORT ---
DATE OF SERVICE: EGD SUMMARY INDICATION FOR THE PROCEDURE: Dysphagia with weight loss. DESCRIPTION OF PROCEDURE: The patient was placed in the left lateral decubitus position. The endoscope was inserted in the oral cavity and under direct visualization, the esophagus was intubated. The scope was passed down the esophagus through the stomach and into the second portion of the duodenum. Careful inspection was made as the endoscope was withdrawn. FINDINGS: Now the true and false vocal folds were unremarkable. The posterior hypopharynx, arytenoid aperture revealed no evidence for erythema or exudate or abnormality. The proximal, mid and distal esophagus revealed no evidence for obstruction internally or externally. The Z line was distinct with no evidence for hiatal hernia formation. No evidence for erosive esophagitis. The esophagus was not dilated and lower esophageal sphincter tone appeared to be normal with no difficulty intubating the stomach. The cardia was unremarkable. There is some mild antral erythema. Biopsy was obtained and submitted for evaluation for Helicobacter. No evidence of peptic ulcer disease was noted. The pylorus, pyloric channel, the duodenal bulb and second portion of duodenum were unremarkable. ASSESSMENT AND PLAN: No evidence for mechanical obstruction or evidence for erosive esophagitis is noted. There was one finger involving about 40% of the lower esophageal sphincter circumference where there was proximal extension of columnar appearing mucosa. A biopsy was obtained to rule out short segment Genao's. Mild patchy antral erythema was noted. Biopsy was obtained and submitted for histopathology. May need to consider investigation for neuromuscular etiologies and dysphagia, considering the fact that there is no evidence for obstruction. Discussed with the patient and she admits that she tends to eat faster with dentures, the importance of taking small bites and chewing her food up well and slowing down when it comes to eating. Job ID: [id number] DocumentID: [id number] Dictated Date: 09/08/2019 10:55:05 Street Sweeper Operator Date: 09/08/2019 13:09:59 Dictated By: BERNIE MEANS MD
== END 2019-09-08 10:45 ==
LOC: ENDO 08:15
PROVIDERS: ATTEND Internal Medicine
DX: K29.50 Unspecified chronic gastritis without bleeding (principal); K20.9 Esophagitis, unspecified; R63.4 Abnormal weight loss; Z90.89 Acquired absence of other organs; Z90.710 Acquired absence of both cervix and uterus; Z86.010 Personal history of colon polyps; Z80.0 Family history of malignant neoplasm of digestive organs; Z82.3 Family history of stroke

== ENCOUNTER → 2020-08-30 | Outpatient (CLI) | payer MEDICARE, MEDICAID ==
[~2020-08-30] MED LIST changes: +ACHYD1T PO; -HYDR-3820 PO
--- NOTE | 2020-08-30 10:24 | Diagnostic Imaging Report ---
PROCEDURE: MRI lumbar spine. TECHNIQUE: Multiplanar, multisequence MRI of the lumbar spine was performed without contrast. INDICATION: Chronic low back pain. COMPARISON: CT of the abdomen and pelvis from 08/28/2018 FINDINGS: The last well-formed disc space will labeled L5-S1 for the purposes of this examination. There is motion artifact on multiple sequences. Alignment appears normal with no spondylolisthesis. There is mild disc height loss at L5-S1. Vertebral body heights are preserved. The bone marrow signal is mildly heterogeneous, which is nonspecific. No fracture is seen. The conus terminates in appropriate position. Soft tissues about the lumbar spine demonstrate no acute abnormality. T12-L1: No significant disc bulge. No spinal canal or foraminal stenosis. L1-L2: No significant disc bulge. No spinal canal or foraminal stenosis. L2-L3: No significant disc bulge. No spinal canal or foraminal stenosis. L3-L4: Mild diffuse disc bulge. No spinal canal stenosis. Mild bilateral foraminal narrowing. L4-L5: Diffuse disc bulge. Mild facet arthropathy. Minimal spinal canal narrowing. Moderate bilateral foraminal stenosis. L5-S1: Diffuse disc bulge and mild facet arthropathy. No spinal canal stenosis. Severe right and moderate left foraminal stenosis. IMPRESSION: 1. Mild degenerative changes in the lower lumbar spine. No significant spinal canal stenosis. 2. Foraminal stenosis in the lower lumbar spine, most severe at L5-S1 on the right. Dictated by: Dictated on workstation # [id number]
== END ==
LOC: RAD 09:11
PROVIDERS: ATTEND Physician Assistant
DX: M47.816 Spondylosis without myelopathy or radiculopathy, lumbar region (principal); M47.817 Spondylosis without myelopathy or radiculopathy, lumbosacral region; M51.26 Other intervertebral disc displacement, lumbar region; M51.27 Other intervertebral disc displacement, lumbosacral region; M48.061 Spinal stenosis, lumbar region without neurogenic claudication; M48.07 Spinal stenosis, lumbosacral region
CPT/HCPCS: 72148

== ENCOUNTER → 2021-06-17 | Outpatient (CLI) | payer MEDICARE, MEDICAID ==
--- NOTE | 2021-06-17 11:10 | Diagnostic Imaging Report ---
INDICATION: Postmenopausal state COMPARISON: None available FINDINGS: AP Spine L1-L4: [BMD (g/cm2): 0.938] [T-Score: -2.2] [Z-Score: -0.7] [BMD Previous: NA] [BMD % Change: NA] LT Hip Neck: [BMD (g/cm2): 0.843] [T-Score: -1.4] [Z-Score: 0.0] LT Hip Total: [BMD (g/cm2):0.810] [T-Score:-1.6] [Z-Score: -0.5] [BMD Previous: NA] [BMD % Change: NA] RT Hip Neck: [BMD (g/cm2):0.812] [T-Score:-1.6] [Z-Score:-0.2] RT Hip Total: [BMD (g/cm2):0.801] [T-score:-1.6] [Z-Score:-0.5] [BMD Previous:NA] [BMD % Change:NA] *Indicates significant change from prior examination based on 95% confidence level. World Health Organization criteria for BMD interpretation classify patients as Normal (T-score at or above -1.0), Osteopenic (T-score between -1.0 and -2.5) or Osteoporotic (T-score at or below -2.5). LIMITATIONS AND MODIFICATION: None. FRACTURE RISK (FRAX SCORE): The ten year probability of (%): Major Osteoporotic Fracture: [8.4] Hip Fracture: [0.8] IMPRESSION: 1. Osteopenia (Low bone mass). 2. Baseline examination. 3. See below National Osteoporosis Foundation guidelines on when to potentially initiate pharmacologic therapy. Based on the National Osteoporosis Foundation Guidelines, pharmacologic treatment should be initiated in any of the following, unless clinical conditions suggest otherwise: * Any patient with prior fragility fracture of the hip or vertebrae. A spine fracture indicates 5X risk for subsequent spine fracture and 2X risk for subsequent hip fracture. * Osteoporosis (T-score <-2.5). * Postmenopausal women and men age 50 and older with low bone mass/osteopenia (T-score between -1.0 and -2.5) by DXA and 10-year major osteoporotic fracture greater than 20% or a 10-year probability of hip fracture greater than 3%. These fracture risks are supplied above in the FRAX score, if applicable. * Clinician judgement and/or patient preferences may indicate treatment for people with 10-year fracture probabilities above or below these levels. Dictated by: Dictated on workstation # [id number]
== END ==
LOC: RAD 10:15
PROVIDERS: ATTEND Physician Assistant
DX: Z13.820 Encounter for screening for osteoporosis (principal); Z12.31 Encounter for screening mammogram for malignant neoplasm of breast; M85.80 Other specified disorders of bone density and structure, unspecified site; Z78.0 Asymptomatic menopausal state
CPT/HCPCS: 77063; 77067; 77080

== ENCOUNTER 2021-12-25 05:50 | Outpatient (CLI) | payer MEDICARE, MEDICAID ==
[~2021-12-25] VITALS: Ht 160 cm; Wt 61.4 kg
[2021-12-30] MEDS ORDERED: FOLI20CA PO (10:41)
== END 2021-12-30 10:57 | disposition home or self-care (01) ==
LOC: PREOP 05:50
PROVIDERS: ATTEND Specialist
DX: Z01.818 Encounter for other preprocedural examination (principal)

== ENCOUNTER 2022-01-02 07:12 | Day surgery (SDC) | payer MEDICARE, MEDICAID ==
[~2022-01-02] VITALS: Ht 160 cm; Wt 61.4 kg
[~2022-01-02 07:12] MED LIST changes: +FOLI20CA PO
[2022-01-02 07:30] VITALS: BP 119/81
[2022-01-02] MEDS: TETRACAINE 0.5% OPHTH SOLN 4 ML BTL (SINGLE DOSE ONLY) OU PRN ×4 (07:54→08:13)
[2022-01-02] MEDS ORDERED: POVIDONE (BETADINE) OPHTH SOLN 5% 30 ML OP ONE (08:00)
[2022-01-02] MEDS ORDERED: TIMOLOL MALEATE 0.5% 5 ML (TIMOPTIC) BTL OU PRN (08:00)
[2022-01-02] MEDS ORDERED: MOXIFLOXACIN OPHTH SOLN 5 MG/ML 0.3 ML SYRINGE OP ONE (08:00)
[2022-01-02] MEDS ORDERED: LIDOCAINE PF 1% 2 ML VIAL IR PRN (08:00)
[2022-01-02] MEDS: TROPICAMIDE 1% OPH SOLN (MYDRIACYL) 15 ML BTL OP SCH ×3 (08:01→08:14)
[2022-01-02] MEDS: PHENYLEPHRINE 10% OPHTH (NEO-SYN) 5 ML BTL OU SCH ×3 (08:02→08:13)
[2022-01-02] MEDS ORDERED: MIDAZOLAM 2 MG/2 ML (VERSED) VIAL ONE (08:03)
[2022-01-02 08:25] VITALS: BP 119/81
--- NOTE | 2022-01-02 08:44 | Ophthalmologist Pre-Op Note ---
Pre-Operative Progress Note H&P Reviewed The H&P was reviewed, patient examined and no changes noted. Date H&P Reviewed: Jan 02, 2022 Time H&P Reviewed: 08:44 Pre-Op Dx Cataract, Left Eye JESIKA LOMBARDO MD Jan 02, 2022 08:44
--- NOTE | 2022-01-02 09:05 | Ophthalmology Operative Report ---
Cataract removal/placement IOL PREOPERATIVE DIAGNOSIS: Cataract Right Eye POSTOPERATIVE DIAGNOSIS: Cataract Right Eye PROCEDURE: Cataract removal and placement of posterior chamber implant, right eye SURGEON: Aakash Lombardo ANESTHESIA: Topical with sedation COMPLICATIONS: None ESTIMATED BLOOD LOSS: Minimal DESCRIPTION OF PROCEDURE: After proper informed consent was obtained, the patient, a 61 female, was taken to the Operating Room and the right eye was anesthetized with tetracaine. The right eye was then prepped and draped in the usual manner. A wire lid speculum was placed. A paracentesis was made at the left hand position. Preservative free lidocaine was injected into the anterior chamber followed by viscoelastic. A clear corneal incision was made in the temporal position. A capsulorrhexis was preformed and the central nuclear and cortical material were removed. The posterior capsule was polished and Buddy 23.0 AU00T0 IOL was placed into the capsular bag. The residual viscoelastic was aspirated and balanced saline solution was injected into the anterior chamber. Moxifloxacin was injected into the anterior chamber. The wound was checked and found to be water tight. The patient tolerated the procedure well without complications. AAKASH LOMBARDO MD Jan 02, 2022 09:05
[2022-01-02 09:48] VITALS: BP 119/81
[2022-01-02] MEDS ORDERED: acetaZOLAMIDE ER 500 MG CAP (DIAMOX SEQUELS) PO ONE (10:15)
--- NOTE | 2022-01-02 13:18 | Anesthesia-General Post-Op ---
MAC Patient Condition Mental Status/LOC: Same as Preop Cardiovascular: Satisfactory Nausea/Vomiting: Absent Respiratory: Satisfactory Pain: Controlled Complications: Absent Post Op Complications Complications None Follow Up Care/Instructions Patient Instructions None needed. Anesthesiology Discharge Order Discharge Order Patient is doing well, no complaints, stable vital signs, no apparent adverse anesthesia problems. No complications reported per nursing. CECILIA MACIAS CRNA Jan 02, 2022 13:17
== END 2022-01-02 09:15 | disposition home or self-care (01) ==
LOC: SDC 07:12
PROVIDERS: ATTEND Specialist
DX: H25.9 Unspecified age-related cataract (principal); Z87.891 Personal history of nicotine dependence
CPT/HCPCS: 66984; V2632

== ENCOUNTER 2022-01-16 07:00 | Day surgery (SDC) | payer MEDICARE, MEDICAID ==
[~2022-01-16] VITALS: Ht 160 cm; Wt 61.4 kg
[2022-01-16] MEDS: TETRACAINE 0.5% OPHTH SOLN 4 ML BTL (SINGLE DOSE ONLY) OU PRN ×4 (07:11→07:28)
[2022-01-16 07:15] VITALS: BP 114/72
[2022-01-16] MEDS ORDERED: LIDOCAINE PF 1% 2 ML VIAL IR PRN (07:15)
[2022-01-16] MEDS ORDERED: TIMOLOL MALEATE 0.5% 5 ML (TIMOPTIC) BTL OU PRN (07:15)
[2022-01-16] MEDS ORDERED: MOXIFLOXACIN OPHTH SOLN 5 MG/ML 0.3 ML SYRINGE OP ONE (07:15)
[2022-01-16] MEDS ORDERED: POVIDONE (BETADINE) OPHTH SOLN 5% 30 ML OP ONE (07:15)
[2022-01-16] MEDS: PHENYLEPHRINE 10% OPHTH (NEO-SYN) 5 ML BTL OU SCH ×3 (07:18→07:28)
[2022-01-16] MEDS: TROPICAMIDE 1% OPH SOLN (MYDRIACYL) 15 ML BTL OP SCH ×3 (07:18→07:28)
--- NOTE | 2022-01-16 07:19 | Ophthalmologist Pre-Op Note ---
Pre-Operative Progress Note H&P Reviewed The H&P was reviewed, patient examined and no changes noted. Date H&P Reviewed: January 16, 2022 Time H&P Reviewed: 07:19 Pre-Op Dx Cataract, Right Eye JESIKA LOMBARDO MD January 16, 2022 07:19
[2022-01-16] MEDS ORDERED: MIDAZOLAM 2 MG/2 ML (VERSED) VIAL ONE (08:00)
--- NOTE | 2022-01-16 08:31 | Ophthalmology Operative Report ---
Cataract removal/placement IOL PREOPERATIVE DIAGNOSIS: Cataract Right Eye POSTOPERATIVE DIAGNOSIS: Cataract Right Eye PROCEDURE: Cataract removal and placement of posterior chamber implant, right eye SURGEON: Aakash Lombardo ANESTHESIA: Topical with sedation COMPLICATIONS: None ESTIMATED BLOOD LOSS: Minimal DESCRIPTION OF PROCEDURE: After proper informed consent was obtained, the patient, a 61 female, was taken to the Operating Room and the right eye was anesthetized with tetracaine. The right eye was then prepped and draped in the usual manner. A wire lid speculum was placed. A paracentesis was made at the left hand position. Preservative free lidocaine was injected into the anterior chamber followed by viscoelastic. A clear corneal incision was made in the temporal position. A capsulorrhexis was preformed and the central nuclear and cortical material were removed. The posterior capsule was polished and Buddy 23.0 AU00T0 IOL was placed into the capsular bag. The residual viscoelastic was aspirated and balanced saline solution was injected into the anterior chamber. Moxifloxacin was injected into the anterior chamber. The wound was checked and found to be water tight. The patient tolerated the procedure well without complications. AAKASH LOMBARDO MD January 16, 2022 08:31
[2022-01-16 08:40] VITALS: BP 114/72
[2022-01-16] MEDS ORDERED: acetaZOLAMIDE ER 500 MG CAP (DIAMOX SEQUELS) PO ONE (10:00)
== END 2022-01-16 08:41 | disposition home or self-care (01) ==
LOC: SDC 07:00
PROVIDERS: ATTEND Specialist
DX: H25.9 Unspecified age-related cataract (principal); Z87.891 Personal history of nicotine dependence
CPT/HCPCS: 66984; V2632

== ENCOUNTER 2022-08-17 08:45 | Emergency (ER) | payer MEDICARE, MEDICAID ==
[~2022-08-17] VITALS: Ht 157 cm; Wt 59.0 kg
[2022-08-17] MEDS ORDERED: FAMOTIDINE 20 MG (PEPCID) TABLET PO STA (09:06)
--- NOTE | 2022-08-17 09:12 | ED Cardiac General ---
History of Present Illness General Chief Complaint: Cardiac/General Problems Stated Complaint: CHEST AND BACK PAINS | SOB Nursing Triage Note: ARRIVED VIA AMB WITH COMPLAINTS OF UPPER BACK PAIN SINCE WEDNESDAY AND UPPERBACK PAIN AND CHEST PAIN STARTING TODAY. WAS SENT HERE FROM [facility]. PT TESTED NEG FOR COVID TODAY. Source: patient Exam Limitations: no limitations History of Present Illness Date Seen by Provider: Aug 17, 2022 Time Seen by Provider: 08:48 Initial Comments 61-year-old female with past medical history of hypothyroidism coming in due to upper back pain as well as chest pain. Upper back pains been going on for several days, tried hydrocodone as well as Tylenol which did not really help much. Pain is sharp, nothing really seems to change. Developed chest pain around 6 AM this morning which has been constant, more mild. Has never had pain like this before. Otherwise denying any other acute complaints. Denies any his tory of DVT or PE, lower extremity swelling or pain, recent surgery, recent long travel. Allergies and Home Medications Allergies Coded Allergies: No Known Drug Allergies (Unverified , 09/01/19) Patient Home Medication List Home Medication List Reviewed: Yes Folic Acid (Folic Acid) Unknown Strength Capsule, Unknown Dose PO, (Reported) Entered as Reported by: JOHN COE on 12/30/21 1041 Hydrocodone Bit/Acetaminophen (HYDROcodone/APAP 10/325 TABLET) 1 Each Tablet, 1 TAB PO DAILY, (Reported) Entered as Reported by: DARIELA OLVERA on 09/01/19 1234 Levothyroxine Sodium (Levothyroxine Sodium) 100 Mcg Tablet, 200 MCG PO DAILY, (Reported) Entered as Reported by: DARIELA OLVERA on 09/01/19 1234 Review of Systems Review of Systems Constitutional: No fever EENTM: No Symptoms Reported Respiratory: No Symptoms Reported Cardiovascular: See HPI Gastrointestinal: No Symptoms Reported Genitourinary: No Symptoms Reported Musculoskeletal: see HPI Skin: no symptoms reported Psychiatric/Neurological: No Symptoms Reported Endocrine: No Symptoms Reported Hematologic/Lymphatic: No Symptoms Reported All Other Systems Reviewed Negative Unless Noted: Yes Past Bsopili-Lcrtsn-Hdpopg Hx Patient Social History Tobacco Use?: No Substance use?: No Immunizations Up To Date Second COVID19 Vaccination Nick: UKNONWN COVID19 Vaccine Rn Psychiatric: LAKSHMI Seasonal Allergies Seasonal Allergies: No Past Medical History Surgeries: Yes (TUBAL LIGATION,bladder sling,hyst) Bladder Surgery, Gallbladder, Hysterectomy, Thyroidectomy, Tubal Ligation Respiratory: No Cardiac: No Neurological: No Reproductive Disorders: No Sexually Transmitted Disease: No HIV/AIDS: No Genitourinary: No Gastrointestinal: Yes Gastroesophageal Reflux, Hiatal Hernia, Irritable Bowel Musculoskeletal: Yes Arthritis, Rheumatoid Arthritis, Chronic Back Pain Endocrine: Yes Hypothyroidsim HEENT: Yes (GLASSES, DENTURES) Loss of Vision: Denies Hearing Impairment: Denies Cancer: No Psychosocial: No Integumentary: No Blood Disorders: No Adverse Reaction/Blood Tranf: No (N/A) Family Medical History Heart Disease, Hypertension Physical Exam Vital Signs Vital Signs - First Documented 08/17/22 08:50 Temp 36.3 Pulse 104 Resp 16 B/P (MAP) 156/93 (114) Pulse Ox 99 O2 Delivery Room Air Capillary Refill : Less Than 3 Seconds Height, Weight, BMI Height: 5'3.00" Weight: 130lbs. oz. 58.445940me; 23.00 BMI Method:Stated General Appearance: No Apparent Distress, WD/WN HEENT: PERRL/EOMI, Normal ENT Inspection, Pharynx Normal Neck: Full Range of Motion, Normal Inspection, Non Tender, Supple Respiratory: Chest Non Tender, Lungs Clear, Normal Breath Sounds, No Accessory Muscle Use, No Respiratory Distress Cardiovascular: Regular Rate, Rhythm, No Edema, Normal Peripheral Pulses Gastrointestinal: Normal Bowel Sounds, Non Tender, Soft; No Distended, No Guarding Extremity: Normal Capillary Refill, Normal Inspection, Normal Range of Motion, Non Tender, No Calf Tenderness, No Pedal Edema Neurologic/Psychiatric: Alert, No Motor/Sensory Deficits, Normal Mood/Affect Skin: Normal Color, Warm/Dry Lymphatic: No Adenopathy Progress/Results/Core Measures Results/Orders Lab Results Laboratory Tests Test 08/17/22 09:25 08/17/22 10:51 Range/Units White Blood Count 4.3 4.3-11.0 10^3/uL Red Blood Count 4.79 3.80-5.11 10^6/uL Hemoglobin 13.7 11.5-16.0 g/dL Hematocrit 40 35-52 % Mean Corpuscular Volume 84 80-99 fL Mean Corpuscular Hemoglobin 29 25-34 pg Mean Corpuscular Hemoglobin Concent 34 32-36 g/dL Red Cell Distribution Width 11.9 10.0-14.5 % Platelet Count 330 130-400 10^3/uL Mean Platelet Volume 9.1 9.0-12.2 fL Immature Granulocyte % (Auto) 1 % Neutrophils (%) (Auto) 63 42-75 % Lymphocytes (%) (Auto) 27 12-44 % Monocytes (%) (Auto) 8 0-12 % Eosinophils (%) (Auto) 0 0-10 % Basophils (%) (Auto) 1 0-10 % Neutrophils # (Auto) 2.7 1.8-7.8 10^3/uL Lymphocytes # (Auto) 1.2 1.0-4.0 10^3/uL Monocytes # (Auto) 0.4 0.0-1.0 10^3/uL Eosinophils # (Auto) 0.0 0.0-0.3 10^3/uL Basophils # (Auto) 0.0 0.0-0.1 10^3/uL Immature Granulocyte # (Auto) 0.0 0.0-0.1 10^3/uL Prothrombin Time 13.4 12.2-14.7 SEC INR Comment 1.0 0.8-1.4 Activated Partial Thromboplast Time 29 24-35 SEC Sodium Level 139 135-145 MMOL/L Potassium Level 3.5 L 3.6-5.0 MMOL/L Chloride Level 103 98-107 MMOL/L Carbon Dioxide Level 25 21-32 MMOL/L Anion Gap 11 5-14 MMOL/L Blood Urea Nitrogen 8 7-18 MG/DL Creatinine 0.79 0.60-1.30 MG/DL Estimat Glomerular Filtration Rate 85 BUN/Creatinine Ratio 10 Glucose Level 95 70-105 MG/DL Calcium Level 9.0 8.5-10.1 MG/DL Corrected Calcium 9.1 8.5-10.1 MG/DL Magnesium Level 2.0 1.6-2.4 MG/DL Total Bilirubin 0.4 0.1-1.0 MG/DL Aspartate Amino Transf (AST/SGOT) 14 5-34 U/L Alanine Aminotransferase (ALT/SGPT) 16 0-55 U/L Alkaline Phosphatase 101 40-136 U/L Troponin I < 0.028 < 0.028 <0.028 NG/ML B-Type Natriuretic Peptide 16.1 <100.0 PG/ML Total Protein 7.3 6.4-8.2 GM/DL Albumin 3.9 3.2-4.5 GM/DL Lipase 100 H 8-78 U/L My Orders Orders - JEANETTE ZUNIGA MD Ekg Tracing (08/17/22 08:51) Cbc With Automated Diff (08/17/22 09:06) Magnesium (08/17/22 09:06) Chest 1 View, Ap/Pa Only (08/17/22 09:06) Ekg Tracing (08/17/22 09:06) Comprehensive Metabolic Panel (08/17/22 09:06) Protime With Inr (08/17/22 09:06) Partial Thromboplastin Time (08/17/22 09:06) O2 (08/17/22 09:06) Monitor-Rhythm Ecg Trace Only (08/17/22 09:06) Ed Iv/Invasive Line Start (08/17/22 09:06) Lipase (08/17/22 09:06) Bnp [place] (08/17/22 09:06) Troponin I [place] (08/17/22 09:06) Aspirin Chewable Tablet (Baby Aspirin Ch (08/17/22 09:15) Oxycodone Immediate Rel Tablet (Oxyir Ta (08/17/22 09:15) Lidocaine 2% Viscous 15 Ml (Xylocaine Vi (08/17/22 09:15) Famotidine Tablet (Pepcid Tablet) (08/17/22 09:06) Antacid Suspension (Mylanta Suspension (08/17/22 09:15) Troponin I Mccone (08/17/22 10:15) Medications Given in ED Current Medications Medications Dose Ordered Sig/Theodore Route Start Time Stop Time Status Last Admin Dose Admin Al Hydrox/Mg Hydrox/Simethicone 30 ml ONCE ONCE PO 08/17/22 09:15 08/17/22 09:16 DC 08/17/22 09:30 30 ML Aspirin 324 mg ONCE ONCE PO 08/17/22 09:15 08/17/22 09:16 DC 08/17/22 09:30 324 MG Lidocaine HCl 15 ml ONCE ONCE PO 08/17/22 09:15 08/17/22 09:16 DC 08/17/22 09:30 15 ML Oxycodone HCl 5 mg ONCE ONCE PO 08/17/22 09:15 08/17/22 09:16 DC 08/17/22 09:30 5 MG Vital Signs/I&O 08/17/22 08:50 Temp 36.3 Pulse 104 Resp 16 B/P (MAP) 156/93 (114) Pulse Ox 99 O2 Delivery Room Air Blood Pressure Mean: 114 Progress Progress Note : Progress Note 61-year-old female presenting for upper back pain and chest pain. ABCs were intact and vitals are stable on presentation. Physical exam reassuring with no focal abnormalities. EKG normal sinus with no significant ST changes or concerns. An IV was placed and basic labs were obtained including cardiac biomarkers. Troponin negative x2. Chest x-ray with no acute abnormalities. Very unlikely to be ACS given constant pain with 2 negative troponins. Low risk for PE otherwise. I believe she is stable for discharge with outpatient follow- up. She was sent with strict return precautions Prior to discharge, her chest pain was gone. Initial ECG Impression Date: Aug 17, 2022 Initial ECG Impression Time: 08:59 Initial ECG Rate: 91 Initial ECG Rhythm: Normal Sinus Comment Narrow QRS, normal axis, no significant ST changes, or T wave abnormalities Diagnostic Imaging Diagonstic Imaging: Xray (chest) Comments [facility] [place], [place] NAME: [facility] REC#: [id number] PT STATUS: REG ER : 1960 PHYSICIAN: JEANETTE ZUNIGA MD ADMIT DATE: 08/17/22/ER Draft Date of Exam:08/17/22 CHEST 1 VIEW, AP/PA ONLY INDICATION: Chest pain. TECHNIQUE: Single view chest 9:15 AM. CORRELATION STUDY: None FINDINGS: The heart size, mediastinal configuration and pulmonary vascularity are within normal limits. The lungs are clear with no consolidating infiltrate. Calcified granuloma right costophrenic angle. There is no significant effusion or pneumothorax. Surgical clips at the base of neck. IMPRESSION: 1. Negative appearing single view chest. Dictated on workstation # [id number] Dict: 08/17/2236 Trans: 08/17/2237 DO [id number] Interpreted by: TYRON OSUNA DO Electronically signed by: Departure Impression Primary Impression: Chest wall pain Disposition: 01 HOME, SELF-CARE Condition: Stable Departure-Patient Inst. Decision time for Depature: 11:24 Referrals: [facility] [place] ([place]/Family) Primary Care Physician YNES STARK MD FACP FAC CCDS Patient Instructions: Chest Pain, Adult ED Add. Discharge Instructions: Does not appear like you are having heart attack today. I recommend taking Tylenol and/or ibuprofen as needed for pain. Follow-up with Dr. Stark, the collection supervisor in [facility] who is numbers in this paperwork if pain persist. Work/School Note: Work Release Form Date Seen in the Emergency Department: Aug 17, 2022 Return to Work: Aug 18, 2022 Restrictions: No Restrictions JEANETTE ZUNIGA MD Aug 17, 2022 09:12
[2022-08-17] MEDS ORDERED: LIDOCAINE 2% VISCOUS 15 ML UDC PO ONE (09:15)
[2022-08-17] MEDS ORDERED: ANTACID SUSP 30 ML UDC (MYLANTA) PO ONE (09:15)
[2022-08-17] MEDS ORDERED: ASPIRIN 81 MG CHEW (CHILDREN'S ASA) PO ONE (09:15)
[2022-08-17 09:33] LABS: BASOPHILS % (AUTO) 1 % (0-10); EOSINOPHILS % (AUTO) 0 % (0-10); HEMATOCRIT 40 % (35-52); HEMOGLOBIN 13.7 g/dL (11.5-16.0); LYMPHOCYTES # (AUTO) 1.2 10^3/uL (1.0-4.0); LYMPHOCYTES % (AUTO) 27 % (12-44); MEAN CORPUSCULAR HEMOGLOBIN 29 pg (25-34); MEAN CORPUSCULAR HGB CONC 34 g/dL (32-36); MEAN CORPUSCULAR VOLUME 84 fL (80-99); MEAN PLATELET VOLUME 9.1 fL (9.0-12.2); MONOCYTES # (AUTO) 0.4 10^3/uL (0.0-1.0); MONOCYTES % (AUTO) 8 % (0-12); NEUTROPHILS # (AUTO) 2.7 10^3/uL (1.8-7.8); NEUTROPHILS % (AUTO) 63 % (42-75); PLATELET COUNT 330 10^3/uL (130-400); WHITE BLOOD COUNT 4.3 10^3/uL (4.3-11.0)
--- NOTE | 2022-08-17 09:37 | Diagnostic Imaging Report ---
INDICATION: Chest pain. TECHNIQUE: Single view chest 9:15 AM. CORRELATION STUDY: None FINDINGS: The heart size, mediastinal configuration and pulmonary vascularity are within normal limits. The lungs are clear with no consolidating infiltrate. Calcified granuloma right costophrenic angle. There is no significant effusion or pneumothorax. Surgical clips at the base of neck. IMPRESSION: 1. Negative appearing single view chest. Dictated by: Dictated on workstation # [id number]
[2022-08-17 09:46] LABS: PROTHROMBIN TIME PATIENT 13.4 SEC (12.2-14.7)
[2022-08-17 09:56] LABS: ALBUMIN 3.9 GM/DL (3.2-4.5); BILIRUBIN,TOTAL 0.4 MG/DL (0.1-1.0); CREATININE SERUM 0.79 MG/DL (0.60-1.30); POTASSIUM 3.5 MMOL/L (3.6-5.0); TOTAL PROTEIN 7.3 GM/DL (6.4-8.2)
[2022-08-17 11:38] VITALS: BP 123/76
== END 2022-08-17 11:38 | disposition home or self-care (01) ==
LOC: EDUNIT# 08:45 → ER 08:47
DX: R07.89 Other chest pain (principal); M54.6 Pain in thoracic spine
CPT/HCPCS: 36415; 71045; 80053; 83690; 83735; 83880; 84484; 85025; 85610; 85730; 93005